=== PATIENT | female | born 1940 | race Caucasian/White ===

== ENCOUNTER → 2017-12-23 07:57 | Outpatient (CLI) | payer MEDICARE, OTHER, SELFPAY ==
[2017-12-23 09:14] LABS: Alanine Aminotransferase 25 IU/L (9-52); Albumin 4.1 g/dL (3.5-5.0); Albumin Globulin Ratio 1.5 (1.0-2.8); Alkaline Phosphatase 118 U/L (38-126); Aspartate Aminotransferase 21 IU/L (14-36); BUN Creatinine Ratio 18.9 (6-22); Blood Urea Nitrogen 17 mg/dL (7-17); Carbon Dioxide 28 mmol/L (22-32); Chloride 102 mmol/L (98-107); Cholesterol 163 mg/dL (140-199); Estimated Glomerular Filt Rate > 60.0 mL/min (>60); Globulin 2.8 g/dL (1.7-4.1); Glucose 101 mg/dL (80-110); HDL Cholesterol 49 mg/dL (40-60); HEMOLYSIS < 15 (0-50); LDL Cholesterol Calculated 90 mg/dL (<100); Potassium 4.2 mmol/L (3.4-5.1); Sodium 143 mmol/L (137-145); Total Protein 6.9 g/dL (6.3-8.2); Triglycerides 119 mg/dL (35-150)
[2017-12-23 11:51] LABS: Creatinine Urine Random 141.7 mg/dL
[2017-12-23 11:55] LABS: Microalbumi Creatinin Ratio Ur 7.7 ug/mg CR (<30); Microalbumin Urine Random 1.1 mg/dL (0-1.6)
== END ==
PROVIDERS: PCP Physician Assistant; Visit Provider Physician Assistant
DX: E78.5 Hyperlipidemia, unspecified (principal); I10 Essential (primary) hypertension
CPT/HCPCS: 36415; 80053; 80061; 82043; 82570

== ENCOUNTER → 2018-07-16 08:13 | Outpatient (CLI) | payer MEDICARE, SELFPAY ==
[2018-07-16 09:20] LABS: Blood Urea Nitrogen 17 mg/dL (7-17); Calcium 9.2 mg/dL (8.4-10.2); Carbon Dioxide 28 mmol/L (22-32); Chloride 102 mmol/L (98-107); Estimated Glomerular Filt Rate 53.3 mL/min (>60); Glucose 94 mg/dL (80-110); HEMOLYSIS < 15 (0-50); Potassium 4.3 mmol/L (3.4-5.1); Sodium 143 mmol/L (137-145)
== END ==
PROVIDERS: Family Provider Physician Assistant; PCP Physician Assistant; Visit Provider Physician Assistant
DX: I10 Essential (primary) hypertension (principal); Z51.81 Encounter for therapeutic drug level monitoring
CPT/HCPCS: 36415; 80048

== ENCOUNTER → 2019-02-09 07:29 | Outpatient (CLI) | payer MEDICARE, SELFPAY ==
[2019-02-09 08:58] LABS: Alanine Aminotransferase 23 IU/L (9-52); Albumin 4.1 g/dL (3.5-5.0); Albumin Globulin Ratio 1.5 (1.0-2.8); Alkaline Phosphatase 109 U/L (38-126); Aspartate Aminotransferase 25 IU/L (14-36); BUN Creatinine Ratio 18.9 (6-22); Bilirubin Total 0.9 mg/dL (0.2-1.3); Blood Urea Nitrogen 17 mg/dL (7-17); Calcium 9.3 mg/dL (8.4-10.2); Carbon Dioxide 30 mmol/L (22-32); Chloride 102 mmol/L (98-107); Cholesterol 180 mg/dL (140-199); Estimated Glomerular Filt Rate > 60.0 mL/min (>60); Globulin 2.8 g/dL (1.7-4.1); Glucose 102 mg/dL (80-110); HDL Cholesterol 42 mg/dL (40-60); HEMOLYSIS < 15 (0-50); LDL Cholesterol Calculated 106 mg/dL (<100); Potassium 4.5 mmol/L (3.4-5.1); Sodium 140 mmol/L (137-145); Total Protein 6.9 g/dL (6.3-8.2); Triglycerides 160 mg/dL (35-150)
== END ==
PROVIDERS: PCP Physician Assistant; Visit Provider Physician Assistant
DX: E78.5 Hyperlipidemia, unspecified (principal); I10 Essential (primary) hypertension
CPT/HCPCS: 36415; 80053; 80061

== ENCOUNTER → 2019-12-03 13:48 | Outpatient (CLI) | payer MEDICARE, SELFPAY ==
--- NOTE | 2019-12-03 13:49 | DI.US.S_ITS ---
PROCEDURE: US PELVIC COMPLETE INDICATIONS: QUESTION OF VAGINAL BLEEDING TECHNIQUE: Real-time scanning was performed of the pelvic organs, with image documentation. Additional endovaginal scanning was necessary due to incomplete visualization of the adnexal and endometrial structures by transabdominal scanning. COMPARISON: None. FINDINGS: Transabdominal scanning: Limited scanning through the kidneys shows no hydronephrosis. No pathologic free abdominal or pelvic fluid. Endovaginal scanning: Uterus: Uterus is normal in size at 6.1 x 2.2 x 3.5 cm. The endometrium measures 3-4 mm in combined thickness. Ovaries: Neither of the ovaries are sonographically visualized IMPRESSION: No pathologic endometrial thickening sonographically identified. Dictated by: Glen Alarcon M.D. on 12/03/2019 at 16:01 Approved by: Glen Alarcon M.D. on 12/03/2019 at 16:04
== END ==
PROVIDERS: PCP Physician Assistant; Referring Provider Obstetrics & Gynecology; Visit Provider Obstetrics & Gynecology
DX: Z96.0 Presence of urogenital implants (principal)
CPT/HCPCS: 76830; 76856

== ENCOUNTER → 2019-12-22 07:32 | Outpatient (CLI) | payer MEDICARE, SELFPAY ==
[2019-12-22 08:50] LABS: BUN Creatinine Ratio 21.7 (6-22); Blood Urea Nitrogen 20 mg/dL (7-17); Calcium 9.1 mg/dL (8.4-10.2); Carbon Dioxide 30 mmol/L (22-32); Chloride 102 mmol/L (98-107); Estimated Glomerular Filt Rate 58.6 mL/min (>60); Glucose 103 mg/dL (80-110); HEMOLYSIS < 15 (0-50); Potassium 3.8 mmol/L (3.4-5.1); Sodium 138 mmol/L (137-145)
== END ==
PROVIDERS: Physician Assistant; PCP Nurse Practitioner Family; Referring Provider Nurse Practitioner Family; Visit Provider Nurse Practitioner Family
DX: I10 Essential (primary) hypertension (principal)
CPT/HCPCS: 36415; 80048

== ENCOUNTER → 2020-03-24 07:41 | Outpatient (CLI) | payer MEDICARE, SELFPAY ==
[2020-03-24 08:43] LABS: Alanine Aminotransferase 22 IU/L (<35); Albumin 4.2 g/dL (3.5-5.0); Albumin Globulin Ratio 1.4 (1.0-2.8); Alkaline Phosphatase 113 U/L (38-126); Aspartate Aminotransferase 29 IU/L (14-36); BUN Creatinine Ratio 15.5 (6-22); Bilirubin Total 1.1 mg/dL (0.2-1.3); Blood Urea Nitrogen 16 mg/dL (7-17); Calcium 9.5 mg/dL (8.4-10.2); Carbon Dioxide 32 mmol/L (22-32); Chloride 101 mmol/L (98-107); Cholesterol 168 mg/dL (140-199); Estimated Glomerular Filt Rate 51.4 mL/min (>60); Globulin 3.1 g/dL (1.7-4.1); Glucose 111 mg/dL (80-110); HDL Cholesterol 48 mg/dL (40-60); HEMOLYSIS < 15 (0-50); LDL Cholesterol Calculated 91 mg/dL (<100); Potassium 5.1 mmol/L (3.4-5.1); Sodium 140 mmol/L (137-145); Total Protein 7.3 g/dL (6.3-8.2); Triglycerides 147 mg/dL (35-150)
[2020-03-24 08:56] LABS: Vitamin D 25 Hydroxy (D3) 42.9 ng/mL (30.0-100.0)
== END ==
PROVIDERS: PCP Registered Nurse; Referring Provider Registered Nurse; Visit Provider Registered Nurse
DX: R94.4 Abnormal results of kidney function studies (principal); I10 Essential (primary) hypertension; E78.5 Hyperlipidemia, unspecified; E55.9 Vitamin D deficiency, unspecified
CPT/HCPCS: 36415; 80053; 80061; 82306

== ENCOUNTER 2020-05-26 16:52 | Emergency (ER) | payer MEDICARE, SELFPAY ==
[2020-05-26 16:58] VITALS: BP 213/94; PULSE 101; RESP 15; TEMP 37; O2SAT 96; BMI 37.0
--- NOTE | 2020-05-26 17:10 | DI.RAD.S_ITS ---
PROCEDURE: XR CHEST 1V INDICATIONS: chest pain TECHNIQUE: One view of the chest was acquired. COMPARISON: [facility], , CHEST 2 VIEW, 10/03/2007, 14:19. FINDINGS: Surgical changes and devices: None. Lungs and pleura: Lungs are clear. No pleural effusions or pneumothorax. Mediastinum: Mediastinal contours appear normal. Heart size is normal. Bones and chest wall: No suspicious bony lesions. Overlying soft tissues appear unremarkable. IMPRESSION: No acute cardiopulmonary process demonstrated radiographically. Dictated by: Shawn Woodson M.D. on 05/26/2020 at 18:29 Approved by: Shawn Woodson M.D. on 05/26/2020 at 18:31
[2020-05-26 17:27] LABS: Add Manual Diff / Slide Review NO; Basophils Absolute Auto 100 /uL (0-100); Basophils Percent Auto 0.9 % (0-2); Eosinophils Absolute Auto 200 /uL (0-450); Eosinophils Percent Auto 2.2 % (2-4); Hematocrit 41.6 % (36-46); Lymphocytes Absolute Auto 2300 /uL (1100-4500); Lymphocytes Percent Auto 25.4 % (25-40); Mean Corpuscular HGB Conc 33.6 % (30-36); Mean Corpuscular Hemoglobin 30.2 PG (26-34); Monocytes Absolute Auto 500 /uL (0-900); Monocytes Percent Auto 5.8 % (3-14); Neutrophils Absolute Auto 6000 /uL (1500-7000); Neutrophils Percent Auto 65.7 % (50-75); Platelet Count 270 X10^3/uL (150-400); Red Blood Cell Count 4.62 X10^6/uL (4.0-5.2); Red Cell Distribution Width 14.1 % (11.6-14.8); White Blood Cell Count 9.1 X10^3/uL (4.5-11.0)
[2020-05-26 17:38] LABS: Prothrombin Time 11.4 SECONDS (10.1-12.7)
[2020-05-26 17:40] LABS: PTT Partial Thromboplastin Tim 32 SECONDS (26.4-36.2)
[2020-05-26 17:43] LABS: Alanine Aminotransferase 24 IU/L (<35); Albumin 4.8 g/dL (3.5-5.0); Albumin Globulin Ratio 1.3 (1.0-2.8); Alkaline Phosphatase 124 U/L (38-126); Aspartate Aminotransferase 34 IU/L (14-36); BUN Creatinine Ratio 14.6 (6-22); Bilirubin Total 0.8 mg/dL (0.2-1.3); Blood Urea Nitrogen 14 mg/dL (7-17); Calcium 9.7 mg/dL (8.4-10.2); Carbon Dioxide 27 mmol/L (22-32); Chloride 101 mmol/L (98-107); Creatine Kinase 188 U/L (30-135); Estimated Glomerular Filt Rate 55.6 mL/min (>60); Globulin 3.7 g/dL (1.7-4.1); Glucose 110 mg/dL (80-110); HEMOLYSIS < 15 (0-50); Lipase 39 U/L (23-300); Potassium 3.9 mmol/L (3.4-5.1); Sodium 138 mmol/L (137-145); Total Protein 8.5 g/dL (6.3-8.2)
[2020-05-26 17:54] LABS: Troponin I < 0.012 ng/mL (0.01-0.034)
[2020-05-26 17:58] LABS: CKMB % Relative Index 0.5 % (1.5-5.0); Creatine Kinase MB 0.93 ng/mL (<2.37)
[2020-05-26 18:04] VITALS: BP 183/84; PULSE 89; RESP 14; TEMP 37.4; O2SAT 97
--- NOTE | 2020-05-26 18:10 | ED_ITS ---
HPI - General Adult General Chief complaint: Hypertension Stated complaint: unable to control bladder, BP/HR elevated Time Seen by Provider: 05/26/20 18:08 Source: patient Mode of arrival: Ambulatory Limitations: no limitations History of Present Illness HPI narrative: 80-year-old female nonsmoker with history of hypertension and chronic kidney disease presents with family in the chief complaint of elevated blood pressure over the course of the day in feeling bit foggy with mild headache. She denies any focal neurologic findings such as blurred vision, trouble speech nor numbness, tingling or weakness of extremities. She denies any fever chills. She has had no chest pain, shortness of breath or cough. She denies abdominal pain. She states that she has had trouble with controlling her bladder for many years and states that it has continued to pain but is nothing new. She denies any change in bowel habits or other urinary complaints. She has no back pain or trouble controlling bowel. She denies any change in diet or medications. Onset (ago): hour(s) Location: head Relieving factors: none Exacerbating factors: none Related Data Home Medications Medication Instructions Recorded Confirmed multivitamin [Multiple Vitamins] 1 tab PO QDAY #0 11/24/10 03/21/20 aspirin 81 mg tablet,delayed 81 mg PO DAILY 07/17/18 03/21/20 release carboxymethylcellulose sodium 0.25 2 drop EYE-BOTH 2XW PRN ml 07/17/18 03/21/20 % eye drops Life Protect Device #1 ea 03/17/19 03/21/20 coenzyme Q10 100 mg capsule 100 mg PO .ONCE A WEEK cap 03/17/19 03/21/20 oxyquinoline-boric acid 0.025 % See Rx Instructions VAG .COMPLEX 03/17/19 03/21/20 vaginal gel Previous Rx's Medication Instructions Recorded Disabled Parking Permit ea #1 10/22/16 oxyquinoline 0.025 %-sodium lauryl 1 each VAG .3 times weekly #113.4 06/29/19 sulfate 0.01 % vaginal gel gram conjugated estrogens 0.625 mg/gram 0.625 mg VAG .COMPLEX #30 gram 12/11/19 vaginal cream verapamil 120 mg tablet,extended 120 mg PO TID #270 tab 03/16/20 release perindopril erbumine 8 mg tablet 8 mg PO BEDTIME #90 tab 04/11/20 simvastatin 40 mg tablet 40 mg PO BEDTIME #90 tab 04/11/20 doxepin 75 mg capsule 75 mg PO HS #90 cap 04/15/20 nitrofurantoin macrocrystal 50 mg See Rx Instructions .ROUTE 05/04/20 capsule .COMPLEX #30 cap hydrochlorothiazide 25 mg tablet 25 mg PO QDAY #90 tab 05/26/20 ketoconazole 2 % topical cream 1 applic TOP DAILY PRN #60 gram 05/26/20 Allergies Allergy/AdvReac Type Severity Reaction Status Date / Time tetracycline Allergy Mild RASH Verified 05/26/20 17:00 menthol [MENTHOL] AdvReac Severe NAUSEA Verified 05/26/20 17:00 peppermint [PEPPERMINT] AdvReac Severe NAUSEA Verified 05/26/20 17:00 phenazopyridine AdvReac Severe VOMITING Verified 05/26/20 17:00 [From PYRIDIUM] Review of Systems Constitutional Constitutional: Denies chills, Denies fatigue, Denies fever(s), Denies frequent falls, Reports headache(s), Denies lethargy and Denies weakness Eyes Eyes: Denies change in vision, Denies eye discharge, Denies irritation and Denies loss of vision ENT Ears, Nose, Mouth, and Throat: Denies change in voice, Denies dizziness, Reports headache(s), Denies neck pain, Denies sore throat and Denies throat swelling Cardiovascular Cardiovascular: Denies chest pain, Denies irregular heart rhythm, Denies lightheadedness, Denies palpitations, Denies dyspnea, Denies dyspnea on exertion and Denies orthopnea Respiratory Respiratory: Denies cough, Denies dyspnea, Denies dyspnea on exertion and Denies wheezing Gastrointestinal Gastrointestinal: Denies abdominal pain, Denies change in bowel habits, Denies diarrhea, Denies nausea and Denies vomiting Musculoskeletal Musculoskeletal: Denies neck pain and Denies numbness Integumentary/Breasts Skin/Breast: Denies pruritus, Denies erythema, Denies rash and Denies wounds Neurologic Neurologic: Denies behavioral changes, Denies confusion, Denies dizziness, Denies frequent falls, Reports headache(s), Denies loss of vision, Denies numbness and Denies weakness Psychiatric Psychiatric: Denies anxiety, Denies behavioral changes, Denies confusion, Denies depression, Denies homicidal ideation and Denies suicidal ideation Endocrine Endocrine: Denies fatigue, Denies flushing and Denies palpitations Hematologic/Lymphatic Hematologic/Lymphatic: Denies easy bruising Allergic/Immunologic Allergic/Immunologic: Denies urticaria, Denies throat swelling and Denies wheezing Patient History Medical History Allergy (Unknown) Basal cell carcinoma (~02/2013) Chronic venous insufficiency (01/20/02) Decreased GFR Depression (Unknown) Distal radius fracture, left Diverticulosis of large intestine with hemorrhage (02/15/16) Essential hypertension (05/04/04) Hiatal hernia (Unknown) Hyperlipidemia (05/04/04) Osteopenia (2005) Osteoporosis (10/25/05) Psoriasis (11/08/10) Vaginal atrophy (05/02/16) Vitamin D deficiency (~2010) Surgical History History of cataract removal with insertion of prosthetic lens (2015) History of third molar tooth extraction S/P surgery on nasal septum Status post delivery (11/19/1968) Status post cholecystectomy Status post hernia repair (2015) Status post total right knee replacement Status post tubal ligation (11/19/1968) Social History Smoking Status: Never smoker second hand exposure: No alcohol intake: never substance use type: does not use Smoking Status: Never smoker alcohol intake frequency: holidays/special occasions only Substance Use Type: does not use Exam Narrative Exam Narrative: GENERAL: [80] year old patient appears stated age. Well- nourished, well-developed patient, in mild distress. HEAD: Atraumatic. Normocephalic. EYES: Pupils equal round and reactive. Extraocular motions intact. No scleral icterus. No injection or drainage. ENT: Nose without bleeding, purulent drainage. Throat without erythema, tonsillar hypertrophy or exudate. Airway patent. NECK: Trachea midline. Non tender CARDIOVASCULAR: Regular rate and rhythm without murmurs, gallops, or rubs. RESPIRATORY: Clear to auscultation. Breath sounds equal bilaterally. No wheezes, rales, or rhonchi. GASTROINTESTINAL: Abdomen soft, non-tender, nondistended. EXTREMITIES: No edema or joint tenderness. BACK: Nontender without deformity or crepitance. No flank tenderness. No saddle anesthesia, no numbness or tingling of lower extremities. NEURO: AOx3. SKIN: No rash or erythema of visible areas Initial Vital Signs Initial Vital Signs: Vital Signs Temperature 98.6 F 05/26/20 16:58 Pulse Rate 101 H 05/26/20 16:58 Respiratory Rate 15 05/26/20 16:58 Blood Pressure 213/94 H 05/26/20 16:58 Pulse Oximetry 96 05/26/20 16:58 Course Orders Ordered: ED Orders 05/26/20 17:10 XR chest 1V Stat EKG-12 Lead Stat 05/26/20 17:17 Complete Blood Count AUTO DIFF Stat Comprehensive Metabolic Panel Stat Lipase Stat Partial Thromboplastin Time Stat Prothrombin Time INR Stat Troponin & CK Cardiac Panel Stat 05/26/20 18:04 Urine Culture Stat Urine Microscopic Stat 05/26/20 18:40 CT head/brain wo con Stat Vital Signs Vital signs: Vital Signs - 8 hr 05/26/20 16:58 05/26/20 18:04 05/26/20 18:24 Temperature 98.6 F 99.4 F Pulse Rate 101 H 89 80 Respiratory Rate 15 14 16 Blood Pressure 213/94 H 183/84 H 201/91 H Pulse Oximetry 96 97 97 05/26/20 20:58 Temperature 98.3 F Pulse Rate 78 Respiratory Rate 20 Blood Pressure 168/73 H Pulse Oximetry 97 Medical Decision Making Lab Data Result diagrams: 05/26/20 17:17 05/26/20 17:17 Labs: Lab Results 05/26/20 05/26/20 05/26/20 Range/Units 17:17 17:17 17:17 WBC 9.1 (4.5-11.0) X10^3/uL RBC 4.62 (4.0-5.2) X10^6/uL Hgb 14.0 (12.0-16.0) g/dL Hct 41.6 (36-46) % MCV 90.0 (80-100) fL MCH 30.2 (26-34) PG MCHC 33.6 (30-36) % RDW 14.1 (11.6-14.8) % Plt Count 270 (150-400) X10^3/uL Neut % (Auto) 65.7 (50-75) % Lymph % (Auto) 25.4 (25-40) % [place] % (Auto) 5.8 (3-14) % Eos % (Auto) 2.2 (2-4) % Baso % (Auto) 0.9 (0-2) % Neut # (Auto) 6000 (5743-1580) /uL Lymph # (Auto) 2300 (7621-5693) /uL [place] # (Auto) 500 (0-900) /uL Eos # (Auto) 200 (0-450) /uL Baso # (Auto) 100 (0-100) /uL PT 11.4 (10.1-12.7) SECONDS INR 1.0 (0.9-1.3) APTT 32 (26.4-36.2) SECONDS Sodium 138 (137-145) mmol/L Potassium 3.9 (3.4-5.1) mmol/L Chloride 101 (98-107) mmol/L Carbon Dioxide 27 (22-32) mmol/L BUN 14 (7-17) mg/dL Creatinine 0.96 (0.52-1.04) mg/dL Estimated GFR 55.6 L (>60) mL/min BUN/Creatinine Ratio 14.6 (6-22) Glucose 110 (80-110) mg/dL Calcium 9.7 (8.4-10.2) mg/dL Total Bilirubin 0.8 (0.2-1.3) mg/dL AST 34 (14-36) IU/L ALT 24 (<35) IU/L Alkaline Phosphatase 124 (38-126) U/L Total Creatine Kinase 188 H (30-135) U/L CK-MB (CK-2) 0.93 (<2.37) ng/mL CK-MB (CK-2) Rel Index 0.5 L (1.5-5.0) % Troponin I < 0.012 (0.01-0.034) ng/mL Total Protein 8.5 H (6.3-8.2) g/dL Albumin 4.8 (3.5-5.0) g/dL Globulin 3.7 (1.7-4.1) g/dL Albumin/Globulin Ratio 1.3 (1.0-2.8) Lipase 39 (23-300) U/L Urine RBC (0-5/HPF) Urine WBC (0-5/HPF) Ur Squamous Epith Cells (0-5/HPF) Urine Bacteria (None) Ur Culture Indicated? 05/26/20 Range/Units 18:04 WBC (4.5-11.0) X10^3/uL RBC (4.0-5.2) X10^6/uL Hgb (12.0-16.0) g/dL Hct (36-46) % MCV (80-100) fL MCH (26-34) PG MCHC (30-36) % RDW (11.6-14.8) % Plt Count (150-400) X10^3/uL Neut % (Auto) (50-75) % Lymph % (Auto) (25-40) % [place] % (Auto) (3-14) % Eos % (Auto) (2-4) % Baso % (Auto) (0-2) % Neut # (Auto) (9340-3584) /uL Lymph # (Auto) (0237-1466) /uL [place] # (Auto) (0-900) /uL Eos # (Auto) (0-450) /uL Baso # (Auto) (0-100) /uL PT (10.1-12.7) SECONDS INR (0.9-1.3) APTT (26.4-36.2) SECONDS Sodium (137-145) mmol/L Potassium (3.4-5.1) mmol/L Chloride (98-107) mmol/L Carbon Dioxide (22-32) mmol/L BUN (7-17) mg/dL Creatinine (0.52-1.04) mg/dL Estimated GFR (>60) mL/min BUN/Creatinine Ratio (6-22) Glucose (80-110) mg/dL Calcium (8.4-10.2) mg/dL Total Bilirubin (0.2-1.3) mg/dL AST (14-36) IU/L ALT (<35) IU/L Alkaline Phosphatase (38-126) U/L Total Creatine Kinase (30-135) U/L CK-MB (CK-2) (<2.37) ng/mL CK-MB (CK-2) Rel Index (1.5-5.0) % Troponin I (0.01-0.034) ng/mL Total Protein (6.3-8.2) g/dL Albumin (3.5-5.0) g/dL Globulin (1.7-4.1) g/dL Albumin/Globulin Ratio (1.0-2.8) Lipase (23-300) U/L Urine RBC None seen (0-5/HPF) Urine WBC 5-10/hpf H (0-5/HPF) Ur Squamous Epith Cells 0-1 /hpf (0-5/HPF) Urine Bacteria None seen (None) Ur Culture Indicated? Specimen cultured Urine Dip Bedside Urine Glucose Negative Bedside Urine Bilirubin - Negative Bedside Urine Ketone - Negative Urine Specific Lester 1.015 Bedside Urine Occult Blood - Negative Bedside Urine pH 6.0 Bedside Urine Protein - Negative Bedside Urine Nitrite - Negative Bedside Urine Leukocytes + 70 Esterase Point of care testing: Urine Dip Bedside Urine Glucose Negative Bedside Urine Bilirubin - Negative Bedside Urine Ketone - Negative Urine Specific [place] 1.015 Bedside Urine Occult Blood - Negative Bedside Urine pH 6.0 Bedside Urine Protein - Negative Bedside Urine Nitrite - Negative Bedside Urine Leukocytes + [address] scan - head: Radiologist's Impression: [address] [id number] Scan ReportSigned Patient: Niru Gamble AMR#: [id number]: 8Acct:[id number]/Sex: 80 / FDate of Service: 05/26/20Loc: EDAccession Number: [id number] Procedure: CT head/brain wo con Ordering Provider: Henri Hawkins D.O. PROCEDURE: CT HEAD/BRAIN WO CON INDICATIONS: HTN emergency TECHNIQUE: Noncontrast 4.5 mm thick angled axial sections acquired from the foramen magnum to the vertex, with coronal and sagittal reformats. For radiation dose reduction, the following was used: automated exposure control, adjustment of mA and/or kV according to patient size. COMPARISON: None. FINDINGS: Image quality: Excellent. CSF spaces: Basal cisterns are patent. No extra-axial fluid collections. Ventricles are normal in size and shape. Brain: No midline shift. No intracranial masses or hemorrhage. Tovar-white matter interface is normal. Skull and face: Calvarium and visualized facial bones are intact, without suspicious lesions. Sinuses: Visualized sinuses and mastoids are clear. IMPRESSION: No acute intracranial finding. Dictated by: Shawn Woodson M.D. on 05/26/2020 at 19:08 Approved by: Shawn Woodson M.D. on 05/26/2020 at 19:08 Chest x-ray: Radiologist's Impression: Age/Sex: 80 / FDate of Service: 05/26/20Loc: EDAccession Number: [id number] Procedure: XR chest 1V Ordering Provider: Wilma Kolb D.O. PROCEDURE: XR CHEST 1V INDICATIONS: chest pain TECHNIQUE: One view of the chest was acquired. COMPARISON: [facility], CHEST 2 VIEW, 10/03/2007, 14:19. FINDINGS: Surgical changes and devices: None. Lungs and pleura: Lungs are clear. No pleural effusions or pneumothorax. Mediastinum: Mediastinal contours appear normal. Heart size is normal. Bones and chest wall: No suspicious bony lesions. Overlying soft tissues appear unremarkable. IMPRESSION: No acute cardiopulmonary process demonstrated radiographically. Dictated by: Shawn Woodson M.D. on 05/26/2020 at 18:29 Approved by: Shawn Woodson M.D. on 05/26/2020 at 18:31 MDM Narrative Medical decision making narrative: Patient initial blood pressure over 200 and was complaining of a bit of a headache and feeling foggy, as stated. Over the duration of the visit, and with reassurance her symptoms improved as her blood pressure improved and by the time she was in the 160s and 70 she was completely asymptomatic. The remainder of her evaluation is very reassuring. We discussed at length that her blood pressure is elevated but it is not appropriate to alter any medications at this point in time and then close follow-up with their PCP is most appropriate step. She has been given extensive return precautions and has had questions answered to her apparent satisfaction. Discharge Plan Departure Patient Disposition: Home Clinical Impression: Urinary urgency HTN (hypertension) Qualifiers: Hypertension type: essential hypertension Qualified Code(s): I10 - Essential (primary) hypertension Activity Restrictions/Additional Instructions: *You have been diagnosed with [elevated blood pressure, chronic kidney disease stage 3] *What to do: * continue to take medications as directed *Follow up with your primary care provider in 2-3 days, call for an appointment. Let them know you were seen in the Emergency Department and that we ask that you be seen in follow up *Return to ER if you should have any new, worsening or concerning symptoms Prescriptions: No Action aspirin [Adult Low Dose Aspirin] 81 mg tablet,delayed release (DR/EC) 81 mg PO DAILY RF: 0 carboxymethylcellulose sodium [TheraTears] 0.25 % drops 2 drop EYE-BOTH 2XW PRNRF: 0 multivitamin [Multiple Vitamins] 1 EACH tablet 1 tab PO QDAY Qty: 0 RF: 0 Disabled Parking Permit Qty: 1 RF: 0 Premarin 0.625 mg/gram cream 0.625 mg VAG .COMPLEX Qty: 30 RF: 2 verapamil 120 mg tablet extended release 120 mg PO TID Qty: 270 RF: 0 perindopril erbumine 8 mg tablet 8 mg PO BEDTIME Qty: 90 RF: 0 simvastatin 40 mg tablet 40 mg PO BEDTIME Qty: 90 RF: 0 doxepin 75 mg capsule 75 mg PO HS Qty: 90 RF: 0 nitrofurantoin macrocrystal 50 mg capsule See Rx Instructions .ROUTE .COMPLEX Qty: 30 RF: 0 ketoconazole 2 % cream 1 applic TOP DAILY PRN (Reason: herber dermatitis) Qty: 60 RF: 3 hydrochlorothiazide 25 mg tablet 25 mg PO QDAY Qty: 90 RF: 3 coenzyme Q10 [Co Q-10] 100 mg capsule 100 mg PO .ONCE A WEEK RF: 0 oxyquinoline-boric acid 0.025 % gel See Rx Instructions VAG .COMPLEX RF: 0 (DME) Life Protect Device Qty: 1 RF: 0 Trimo-Barrett Jelly 0.025-0.01 % gel 1 each VAG .3 times weekly Qty: 113.4 RF: 12 Referrals: Raquel Stern MD [Physician] - Duke Escobedo ARNP [Primary Care Provider] -
[2020-05-26 18:22] LABS: Bacteria Urine None Seen; RBC Urine None Seen (0-5/HPF)
[2020-05-26 18:24] VITALS: BP 201/91; PULSE 80; RESP 16; O2SAT 97
[2020-05-26 18:30] LABS: Culture Indicated Urine Specimen Cultured; Squamous Epithelial Cell Urine 0-1 /HPF (0-5/HPF); WBC Urine 5-10/HPF (0-5/HPF)
--- NOTE | 2020-05-26 18:40 | DI.CT.S_ITS ---
PROCEDURE: CT HEAD/BRAIN WO CON INDICATIONS: HTN emergency TECHNIQUE: Noncontrast 4.5 mm thick angled axial sections acquired from the foramen magnum to the vertex, with coronal and sagittal reformats. For radiation dose reduction, the following was used: automated exposure control, adjustment of mA and/or kV according to patient size. COMPARISON: None. FINDINGS: Image quality: Excellent. CSF spaces: Basal cisterns are patent. No extra-axial fluid collections. Ventricles are normal in size and shape. Brain: No midline shift. No intracranial masses or hemorrhage. Tovar-white matter interface is normal. Skull and face: Calvarium and visualized facial bones are intact, without suspicious lesions. Sinuses: Visualized sinuses and mastoids are clear. IMPRESSION: No acute intracranial finding. Dictated by: Shawn Woodson M.D. on 05/26/2020 at 19:08 Approved by: Shawn Woodson M.D. on 05/26/2020 at 19:08
[2020-05-26 20:58] VITALS: BP 168/73; PULSE 78; RESP 20; TEMP 36.8; O2SAT 97
[2020-05-26 23:43] VITALS: BP 189/80; PULSE 75; RESP 12; O2SAT 94
== END 2020-05-26 23:44 | disposition home or self-care (01) ==
PROVIDERS: Emergency Medicine; Emergency Provider Emergency Medicine; PCP Registered Nurse
DX: R39.15 Urgency of urination (principal); I12.9 Hypertensive chronic kidney disease with stage 1 through stage 4 chronic kidney disease, or unspecified chronic kidney disease; N18.9 Chronic kidney disease, unspecified; R51.9 Headache, unspecified; R07.9 Chest pain, unspecified; Z79.82 Long term (current) use of aspirin
CPT/HCPCS: 36415; 70450; 71045; 80053; 81003; 81015; 82550; 82553; 83690; 84484; 85025; 85610; 85730; 87086; 93005; 99283; 99284

== ENCOUNTER → 2020-06-08 11:21 | Outpatient (CLI) | payer MEDICARE, SELFPAY | PROVIDERS: PCP Registered Nurse; Visit Provider Obstetrics & Gynecology | DX: R39.15 Urgency of urination (principal) | CPT/HCPCS: 87086 ==

== ENCOUNTER → 2020-07-06 11:58 | Outpatient (CLI) | payer MEDICARE, SELFPAY ==
[2020-07-06 13:36] LABS: Hematocrit 40.3 % (36-46); Hemoglobin 13.6 g/dL (12.0-16.0); Mean Corpuscular HGB Conc 33.7 % (30-36); Mean Corpuscular Hemoglobin 30.5 PG (26-34); Mean Corpuscular Volume 90.5 fL (80-100); Platelet Count 245 X10^3/uL (150-400); Red Blood Cell Count 4.45 X10^6/uL (4.0-5.2); Red Cell Distribution Width 13.9 % (11.6-14.8); White Blood Cell Count 6.7 X10^3/uL (4.5-11.0)
[2020-07-06 14:18] LABS: BUN Creatinine Ratio 18.8 (6-22); Blood Urea Nitrogen 18 mg/dL (7-17); Calcium 9.5 mg/dL (8.4-10.2); Carbon Dioxide 34 mmol/L (22-32); Chloride 100 mmol/L (98-107); Estimated Glomerular Filt Rate 55.6 mL/min (>60); Glucose 101 mg/dL (80-110); HEMOLYSIS < 15 (0-50); Potassium 4.9 mmol/L (3.4-5.1); Sodium 138 mmol/L (137-145)
[2020-07-06 15:40] LABS: Creatinine Urine Random 51.7 mg/dL; Protein (Total) Urine Random 16 mg/dL (0-12)
== END ==
PROVIDERS: PCP Registered Nurse; Referring Provider Student in an Organized Health Care Education/Training Program; Visit Provider Student in an Organized Health Care Education/Training Program
DX: N05.9 Unspecified nephritic syndrome with unspecified morphologic changes (principal); D63.1 Anemia in chronic kidney disease; D70.9 Neutropenia, unspecified; R80.9 Proteinuria, unspecified
CPT/HCPCS: 36415; 80048; 82570; 84156; 85027

== ENCOUNTER → 2020-07-21 12:37 | Outpatient (CLI) | payer MEDICARE, SELFPAY ==
--- NOTE | 2020-07-21 12:39 | DI.US.S_ITS ---
PROCEDURE: US RENAL COMPLETE INDICATIONS: CHRONIC KIDNEY DISEASE STAGE 3A TECHNIQUE: Real-time scanning was performed of the kidneys and bladder, with image documentation. COMPARISON: None. FINDINGS: Kidneys: Kidneys are normal in size. Right kidney measures 9.0 cm long; left kidney measures 10.3 cm long. Right renal cortical thickness is 1.4 cm; left renal cortical thickness is 1.2 cm. Renal cortical echotexture is normal. No hydronephrosis or nephrolithiasis. No suspicious solid mass lesions. 0.7 x 0.6 x 0.6 centimeter simple cyst noted in the superior pole of the right kidney. Bladder: Pre-void bladder volume is 252 mL. Post-void residual is 218 mL. Pre-void images demonstrate no intraluminal masses or stones. On pre-void images, both the right and left ureteral jets are noted with color Doppler interrogation. (Of note, ureteral jets may not be detectable in up to 25% of cases due to insufficient differences in specific gravity between ureteral and bladder urine). Miscellaneous: No free pelvic fluid. IMPRESSION: 1. No hydronephrosis or nephrolithiasis. 2. Large postvoid urinary bladder residual volume. Dictated by: Gayle Enamorado MD, PhD on 07/21/2020 at 16:15 Approved by: Gayle Enamorado MD, PhD on 07/21/2020 at 16:17
== END ==
PROVIDERS: PCP Registered Nurse; Referring Provider Student in an Organized Health Care Education/Training Program; Visit Provider Student in an Organized Health Care Education/Training Program
DX: N18.31 Chronic kidney disease, stage 3a (principal)
CPT/HCPCS: 76770

== ENCOUNTER → 2020-10-13 11:41 | Outpatient (CLI) | payer MEDICARE, SELFPAY ==
[2020-10-13 12:09] LABS: Hematocrit 38.6 % (36-46)
[2020-10-13 12:33] LABS: BUN Creatinine Ratio 17.9 (6-22); Blood Urea Nitrogen 17 mg/dL (7-17); Calcium 9.5 mg/dL (8.4-10.2); Carbon Dioxide 28 mmol/L (22-32); Chloride 101 mmol/L (98-107); Estimated Glomerular Filt Rate 56.3 mL/min (>60); Glucose 97 mg/dL (80-110); HEMOLYSIS < 15 (0-50); Potassium 4.4 mmol/L (3.4-5.1); Sodium 138 mmol/L (137-145)
[2020-10-13 14:29] LABS: Appearance Urine UA CLEAR; Bilirubin Urine UA NEGATIVE (NEGATIVE); Color Urine UA YELLOW; Glucose Urine UA TRACE g/dL (Negative); Ketones Urine UA NEGATIVE (NEGATIVE); Leukocyte Esterase Urine UA 1+ (NEGATIVE); Nitrite Urine UA NEGATIVE (Negative); Occult Blood Urine UA 2+ (Negative); Protein Urine UA NEGATIVE (Negative); Urobilinogen Urine UA 0.2 E.U./dL (0.2)
[2020-10-13 14:42] LABS: RBC Urine 1-5/HPF (0-5/HPF); WBC Urine 10-30/HPF (0-5/HPF)
[2020-10-13 14:43] LABS: Bacteria Urine Few (2-10); Culture Indicated Urine Specimen Cultured
[2020-10-13 16:07] LABS: Creatinine Urine Random 64.4 mg/dL; Protein (Total) Urine Random 10 mg/dL (0-12); Protein Creatinine Ratio Urine 0.15 GRAM/24H
[2020-10-14 06:41] LABS: Parathyroid Hormone Int 42 pg/mL (15-65)
== END ==
PROVIDERS: PCP Registered Nurse; Referring Provider Student in an Organized Health Care Education/Training Program; Visit Provider Student in an Organized Health Care Education/Training Program
DX: N05.9 Unspecified nephritic syndrome with unspecified morphologic changes (principal); D64.9 Anemia, unspecified; N25.81 Secondary hyperparathyroidism of renal origin; R80.9 Proteinuria, unspecified; N30.00 Acute cystitis without hematuria
CPT/HCPCS: 36415; 80048; 81001; 82570; 83970; 84156; 85014; 85018; 87086

== ENCOUNTER → 2021-06-12 08:56 | Outpatient (CLI) | payer MEDICARE, SELFPAY ==
[2021-06-12 11:04] LABS: Alanine Aminotransferase 21 IU/L (<35); Albumin Globulin Ratio 1.5 (1.0-2.8); Alkaline Phosphatase 85 U/L (38-126); Aspartate Aminotransferase 28 IU/L (14-36); BUN Creatinine Ratio 18.5 (6-22); Bilirubin Total 1.1 mg/dL (0.2-1.3); Blood Urea Nitrogen 20 mg/dL (7-17); Calcium 9.4 mg/dL (8.4-10.2); Carbon Dioxide 34 mmol/L (22-32); Chloride 100 mmol/L (98-107); Cholesterol 169 mg/dL (140-199); Estimated Glomerular Filt Rate 48.5 mL/min (>60); Globulin 2.7 g/dL (1.7-4.1); Glucose 106 mg/dL (80-110); HDL Cholesterol 40 mg/dL (40-60); HEMOLYSIS < 15 (0-50); LDL Cholesterol Calculated 99 mg/dL (<100); Potassium 4.5 mmol/L (3.4-5.1); Sodium 139 mmol/L (137-145); Total Protein 6.7 g/dL (6.3-8.2); Triglycerides 149 mg/dL (35-150)
== END ==
PROVIDERS: PCP Registered Nurse; Referring Provider Registered Nurse; Visit Provider Registered Nurse
DX: E78.5 Hyperlipidemia, unspecified (principal); I10 Essential (primary) hypertension; N18.31 Chronic kidney disease, stage 3a
CPT/HCPCS: 36415; 80053; 80061

== ENCOUNTER → 2021-06-22 12:19 | Outpatient (CLI) | payer MEDICARE, SELFPAY ==
[2021-06-22 13:29] LABS: Hematocrit 40.3 % (36-46); Hemoglobin 13.9 g/dL (12.0-16.0)
[2021-06-22 13:56] LABS: BUN Creatinine Ratio 17.4 (6-22); Blood Urea Nitrogen 21 mg/dL (7-17); Carbon Dioxide 28 mmol/L (22-32); Chloride 103 mmol/L (98-107); Estimated Glomerular Filt Rate 42.5 mL/min (>60); Glucose 111 mg/dL (80-110); HEMOLYSIS < 15 (0-50); Potassium 5.1 mmol/L (3.4-5.1); Sodium 141 mmol/L (137-145)
[2021-06-22 13:57] LABS: Creatinine Urine Random 93.9 mg/dL; Protein (Total) Urine Random 5 mg/dL (0-12); Protein Creatinine Ratio Urine 0.05 GRAM/24H
[2021-06-23 07:36] LABS: Parathyroid Hormone Int 33 pg/mL (15-65)
== END ==
PROVIDERS: PCP Registered Nurse; Referring Provider Student in an Organized Health Care Education/Training Program; Visit Provider Student in an Organized Health Care Education/Training Program
DX: N05.9 Unspecified nephritic syndrome with unspecified morphologic changes (principal); R80.9 Proteinuria, unspecified; D64.9 Anemia, unspecified; N25.81 Secondary hyperparathyroidism of renal origin
CPT/HCPCS: 36415; 80048; 82570; 83970; 84156; 85014; 85018

== ENCOUNTER → 2021-08-04 11:10 | Outpatient (CLI) | payer MEDICARE, SELFPAY ==
[2021-08-04 12:43] LABS: Creatinine Urine Random 150.1 mg/dL; Protein (Total) Urine Random 22 mg/dL (0-12); Protein Creatinine Ratio Urine 0.14 GRAM/24H
[2021-08-04 12:48] LABS: BUN Creatinine Ratio 17.7 (6-22); Blood Urea Nitrogen 17 mg/dL (7-17); Calcium 9.4 mg/dL (8.4-10.2); Carbon Dioxide 32 mmol/L (22-32); Chloride 101 mmol/L (98-107); Estimated Glomerular Filt Rate 55.5 mL/min (>60); Glucose 103 mg/dL (80-110); HEMOLYSIS < 15 (0-50); Potassium 3.9 mmol/L (3.4-5.1); Sodium 138 mmol/L (137-145)
== END ==
PROVIDERS: PCP Registered Nurse; Referring Provider Student in an Organized Health Care Education/Training Program; Visit Provider Student in an Organized Health Care Education/Training Program
DX: N05.9 Unspecified nephritic syndrome with unspecified morphologic changes (principal); R80.9 Proteinuria, unspecified
CPT/HCPCS: 36415; 80048; 82570; 84156

== ENCOUNTER → 2022-02-06 11:37 | Outpatient (CLI) | payer MEDICARE, SELFPAY ==
[2022-02-06 12:50] LABS: Hematocrit 39.1 % (36-46); Hemoglobin 13.1 g/dL (12.0-16.0)
[2022-02-06 15:30] LABS: BUN Creatinine Ratio 18.7 (6-22); Blood Urea Nitrogen 20 mg/dL (7-17); Calcium 8.9 mg/dL (8.4-10.2); Carbon Dioxide 28 mmol/L (22-32); Chloride 102 mmol/L (98-107); Estimated Glomerular Filt Rate 52 mL/min (>60); Glucose 109 mg/dL (80-110); HEMOLYSIS < 15 (0-50); Potassium 4.7 mmol/L (3.4-5.1); Sodium 140 mmol/L (137-145)
[2022-02-06 16:07] LABS: Creatinine Urine Random 73.9 mg/dL; Protein (Total) Urine Random 11 mg/dL (0-12); Protein Creatinine Ratio Urine 0.14 GRAM/24H
[2022-02-08 05:20] LABS: Parathyroid Hormone Int 47 pg/mL (15-65)
== END ==
PROVIDERS: PCP Family Medicine; Referring Provider Student in an Organized Health Care Education/Training Program; Visit Provider Student in an Organized Health Care Education/Training Program
DX: N05.9 Unspecified nephritic syndrome with unspecified morphologic changes (principal); D64.9 Anemia, unspecified; N25.81 Secondary hyperparathyroidism of renal origin; R80.9 Proteinuria, unspecified
CPT/HCPCS: 36415; 80048; 82570; 83970; 84156; 85014; 85018

== ENCOUNTER 2022-04-04 09:33 | Emergency (ER) | payer MEDICARE, SELFPAY ==
[2022-04-04] VITALS (19 sets, daily range): BP systolic 115–173; BP diastolic 65–77; PULSE 71–113; RESP 12–24; TEMP 36.6; O2SAT 91–99; BMI 35.9
--- NOTE | 2022-04-04 09:52 | DI.RAD.S_ITS ---
PROCEDURE: XR CHEST 1V INDICATIONS: chest pain TECHNIQUE: One view of the chest was acquired. COMPARISON: [facility], CR, XR CHEST 1V, 05/26/2020, 18:10. FINDINGS: Surgical changes and devices: None. Lungs and pleura: Lungs are clear. No pleural effusions or pneumothorax. Mediastinum: Mediastinal contours appear normal. Heart size is normal. Bones and chest wall: No suspicious bony lesions. Overlying soft tissues appear unremarkable. IMPRESSION: No acute cardiopulmonary pathology. Dictated by: Joel Martino M.D. on 04/04/2022 at 10:23 Approved by: Joel Martino M.D. on 04/04/2022 at 10:23
[2022-04-04 10:03] LABS: Add Manual Diff / Slide Review NO; Basophils Absolute Auto 100 /uL (0-100); Eosinophils Absolute Auto 300 /uL (0-450); Hematocrit 39.1 % (36-46); Hemoglobin 13.5 g/dL (12.0-16.0); Lymphocytes Absolute Auto 2300 /uL (1100-4500); Mean Corpuscular HGB Conc 34.4 % (30-36); Mean Corpuscular Hemoglobin 30.6 PG (26-34); Monocytes Absolute Auto 400 /uL (0-900); Monocytes Percent Auto 6.5 % (3-14); Neutrophils Absolute Auto 3400 /uL (1500-7000); Neutrophils Percent Auto 52.5 % (50-75); Platelet Count 230 X10^3/uL (150-400); Red Blood Cell Count 4.39 X10^6/uL (4.0-5.2); Red Cell Distribution Width 13.8 % (11.6-14.8); White Blood Cell Count 6.4 X10^3/uL (4.5-11.0)
[2022-04-04 10:06] LABS: Alanine Aminotransferase 22 IU/L (<35); Albumin 4.5 g/dL (3.5-5.0); Albumin Globulin Ratio 1.3 (1.0-2.8); Alkaline Phosphatase 101 U/L (38-126); Aspartate Aminotransferase 29 IU/L (14-36); BUN Creatinine Ratio 20.9 (6-22); Bilirubin Total 1.1 mg/dL (0.2-1.3); Blood Urea Nitrogen 19 mg/dL (7-17); Carbon Dioxide 21 mmol/L (22-32); Chloride 102 mmol/L (98-107); Creatine Kinase 121 U/L (30-135); Estimated Glomerular Filt Rate > 60 mL/min (>60); Globulin 3.4 g/dL (1.7-4.1); Glucose 134 mg/dL (80-110); HEMOLYSIS < 15 (0-50); Lipase 48 U/L (23-300); Potassium 3.2 mmol/L (3.4-5.1); Sodium 141 mmol/L (137-145); Total Protein 7.9 g/dL (6.3-8.2)
[2022-04-04 10:17] LABS: Troponin I < 0.012 ng/mL (0.01-0.034)
[2022-04-04 10:21] LABS: CKMB % Relative Index 0.8 % (1.5-5.0); Creatine Kinase MB 0.97 ng/mL (<2.37)
--- NOTE | 2022-04-04 12:30 | ED.ARRPALP ---
HPI - Arrhythmia/Palpitations General Chief Complaint: Arrhythmia/Palpitations Stated Complaint: SOB/afib RVR Time Seen by Provider: 04/04/22 12:03 Source: patient and EMS Mode of arrival: EMS History of Present Illness HPI narrative: 81-year-old woman with a history of hypertension, mitral valve insufficiency, left ventricular hypertrophy. Yesterday she was feeling short of breath and more fatigued. This morning she woke up feeling ?not completely clear headed? increased fatigue and of rapid heart rate. She called medics this morning and was given 20 mg of Cardizem EN route by medics with shortness of breath improved. She notes that she has had occasional palpitations throughout her lifetime however in reviewing cardiac and primary care notes that does not look like she carries a diagnosis of atrial fibrillation. She does have mitral valve regurgitation. She is on 50 mg of metoprolol succinate for blood pressure control. She does not complain of headaches, chest pain, abdominal pain, vomiting, diarrhea, lower extremity edema. Related Data Home Medications Medication Instructions Recorded Confirmed multivitamin (Multiple Vitamins 1 tab PO QDAY ##0 11/24/10 04/04/22 tablet) aspirin 81 mg tablet,delayed 81 mg PO DAILY 07/17/18 04/04/22 release (Adult Low Dose Aspirin) Life Protect Device #1 ea 03/17/19 10/10/21 tamsulosin 0.4 mg capsule 0.4 mg PO DAILY 11/29/20 04/04/22 metoprolol succinate 50 mg 50 mg PO DAILY 06/05/21 04/04/22 tablet,extended release 24 hr hydralazine 25 mg tablet 25 mg PO BID 04/04/22 04/04/22 losartan 50 mg tablet 50 mg PO DAILY 04/04/22 04/04/22 simvastatin 40 mg tablet 40 mg PO DAILY 04/04/22 04/04/22 Previous Rx's Medication Instructions Recorded Disabled Parking Permit ea ##1 10/22/16 doxepin 75 mg capsule 75 mg PO BEDTIME #90 caps 06/05/21 ketoconazole 2 % topical cream 1 applic topical DAILY PRN herber 06/05/21 dermatitis #60 grams hydrochlorothiazide 25 mg tablet 25 mg PO QDAY HTN #90 tabs 06/16/21 nitrofurantoin macrocrystal 50 mg See Rx Instructions .Route 06/26/21 capsule .COMPLEX #30 caps apixaban 5 mg tablet (Eliquis) 5 mg PO BID #60 tabs 04/04/22 metoprolol succinate 50 mg 50 mg PO BID #60 tabs 04/04/22 tablet,extended release 24 hr Allergies Allergy/AdvReac Type Severity Reaction Status Date / Time tetracycline Allergy Mild RASH Verified 04/04/22 09:51 menthol [MENTHOL] AdvReac Severe NAUSEA Verified 04/04/22 09:51 peppermint [PEPPERMINT] AdvReac Severe NAUSEA Verified 04/04/22 09:51 phenazopyridine AdvReac Severe VOMITING Verified 04/04/22 09:51 [From PYRIDIUM] Review of Systems Review of Systems Narrative: Remainder of complete review of systems is otherwise unremarkable except for that included in the HPI. Patient History Medical History Allergy (Unknown) Basal cell carcinoma (~02/2013) Candidiasis, cutaneous Chronic venous insufficiency (01/20/02) Decreased GFR Depression (Unknown) Distal radius fracture, left Diverticulosis of large intestine with hemorrhage (02/15/16) Essential hypertension (05/04/04) Hiatal hernia (Unknown) Hyperlipidemia (05/04/04) Osteopenia (2005) Osteoporosis (10/25/05) Psoriasis (11/08/10) Vaginal atrophy (05/02/16) Vitamin D deficiency (~2010) Surgical History History of cataract removal with insertion of prosthetic lens (2015) History of third molar tooth extraction S/P surgery on nasal septum Status post delivery (11/19/1968) Status post cholecystectomy Status post hernia repair (2015) Status post total right knee replacement Status post tubal ligation (11/19/1968) Social History Smoking Status: Never smoker second hand exposure: No alcohol intake: never substance use type: does not use Smoking Status: Never smoker alcohol intake frequency: holidays/special occasions only Substance Use Type: does not use Exam Initial Vital Signs Initial Vital Signs: Vital Signs Temperature 97.8 F 04/04/22 09:35 Pulse Rate 110 H 04/04/22 09:35 Respiratory Rate 04/04/22 09:35 Blood Pressure 115/67 04/04/22 09:35 Pulse Oximetry 97 04/04/22 09:35 Oxygen Delivery Method 04/04/22 09:35 General: Healthy appearing, in no acute distress. Able to give a complete and coherent history. Well-nourished well-developed HEENT: Moist mucous membranes, normal sclera with reactive pupils, Neck: No JVD, supple Respiratory: Lungs are clear to auscultation, no wheezing no rales no rhonchi. Full and symmetrical air movement Cardiac: Irregular with a 2/6 diastolic murmur, no bruits Abdomen: Soft, nontender, good bowel tones, no flank pain Skin: Warm and dry, no rashes Neurologic: Grossly neurologically intact with no obvious asymmetries or abnormalities Extremities: No trauma, well perfused Psych: Cooperative, appropriate insight and affect Course Orders Ordered: ED Orders 04/04/22 09:45 Complete Blood Count AUTO DIFF Stat Comprehensive Metabolic Panel Stat Lipase Stat Magnesium Stat Troponin & CK Cardiac Panel Stat EKG-12 Lead Stat 04/04/22 09:52 XR chest 1V Stat Discontinued Medications Apixaban (Apixaban 5 Mg Tablet) 5 mg PO NOW ONE Stop: 04/04/22 13:06 Last Admin: 04/04/22 13:14 Dose: 5 mg Documented By: MAREK Metoprolol Tartrate (Metoprolol Ir 25 Mg Tablet) 50 mg PO NOW ONE Stop: 04/04/22 13:06 Last Admin: 04/04/22 13:14 Dose: 50 mg Documented By: MAREK Vital Signs Vital signs: Vital Signs - 8 hr 04/04/22 09:35 04/04/22 09:47 04/04/22 10:00 Temperature 97.8 F Pulse Rate 110 H 109 H 94 H Respiratory Rate 22 23 13 Blood Pressure 115/67 Pulse Oximetry 97 95 99 Oxygen Delivery Method Room Air 04/04/22 10:01 04/04/22 10:01 04/04/22 10:30 Temperature Pulse Rate 102 H Respiratory Rate 16 Blood Pressure 165/69 H 167/74 H Pulse Oximetry 98 Oxygen Delivery Method 04/04/22 10:30 04/04/22 11:03 04/04/22 11:04 Temperature Pulse Rate 90 71 94 H Respiratory Rate 22 12 Blood Pressure Pulse Oximetry 97 91 94 Oxygen Delivery Method 04/04/22 11:04 04/04/22 11:30 04/04/22 11:31 Temperature Pulse Rate 94 H Respiratory Rate 14 Blood Pressure 149/70 H 167/70 H Pulse Oximetry 96 Oxygen Delivery Method 04/04/22 11:31 04/04/22 12:00 04/04/22 12:01 Temperature Pulse Rate 99 H 79 Respiratory Rate 13 14 Blood Pressure 162/73 H Pulse Oximetry 96 98 Oxygen Delivery Method 04/04/22 12:01 04/04/22 12:33 04/04/22 12:34 Temperature Pulse Rate 96 H Respiratory Rate 12 24 Blood Pressure 157/70 H Pulse Oximetry 97 98 Oxygen Delivery Method 04/04/22 12:34 04/04/22 12:45 04/04/22 12:45 Temperature Pulse Rate 98 H 106 H Respiratory Rate 16 20 Blood Pressure 168/77 H Pulse Oximetry 96 97 Oxygen Delivery Method 04/04/22 13:00 04/04/22 13:00 04/04/22 13:16 Temperature Pulse Rate 97 H Respiratory Rate 23 Blood Pressure 173/75 H 159/72 H Pulse Oximetry 96 Oxygen Delivery Method 04/04/22 13:16 04/04/22 13:30 04/04/22 13:30 Temperature Pulse Rate 113 H 107 H Respiratory Rate 22 Blood Pressure 170/76 H Pulse Oximetry 96 96 Oxygen Delivery Method 04/04/22 13:45 04/04/22 13:45 04/04/22 14:00 Temperature Pulse Rate 107 H Respiratory Rate 13 Blood Pressure 148/65 H 146/67 H Pulse Oximetry 94 Oxygen Delivery Method 04/04/22 14:00 Temperature Pulse Rate 83 Respiratory Rate 19 Blood Pressure Pulse Oximetry 95 Oxygen Delivery Method MDM - Arrhythmia/Palpitations Lab Data Result diagrams: 04/04/22 09:45 04/04/22 09:45 Labs: Lab Results 04/04/22 04/04/22 Range/Units 09:45 09:45 WBC 6.4 (4.5-11.0) X10^3/uL RBC 4.39 (4.0-5.2) X10^6/uL Hgb 13.5 (12.0-16.0) g/dL Hct 39.1 (36-46) % MCV 89.0 (80-100) fL MCH 30.6 (26-34) PG MCHC 34.4 (30-36) % RDW 13.8 (11.6-14.8) % Plt Count 230 (150-400) X10^3/uL Neut % (Auto) 52.5 (50-75) % Lymph % (Auto) 36.0 (25-40) % Cole % (Auto) 6.5 (3-14) % Eos % (Auto) 4.0 (2-4) % Baso % (Auto) 1.0 (0-2) % Neut # (Auto) 3400 (0054-7680) /uL Lymph # (Auto) 2300 (0051-4334) /uL Cole # (Auto) 400 (0-900) /uL Eos # (Auto) 300 (0-450) /uL Baso # (Auto) 100 (0-100) /uL Sodium 141 (137-145) mmol/L Potassium 3.2 L (3.4-5.1) mmol/L Chloride 102 (98-107) mmol/L Carbon Dioxide 21 L (22-32) mmol/L BUN 19 H (7-17) mg/dL Creatinine 0.91 (0.52-1.04) mg/dL Estimated GFR > 60 (>60) mL/min BUN/Creatinine Ratio 20.9 (6-22) Glucose 134 H (80-110) mg/dL Calcium 9.0 (8.4-10.2) mg/dL Magnesium 2.0 (1.6-2.3) mg/dL Total Bilirubin 1.1 (0.2-1.3) mg/dL AST 29 (14-36) IU/L ALT 22 (<35) IU/L Alkaline Phosphatase 101 (38-126) U/L Total Creatine Kinase 121 (30-135) U/L CK-MB (CK-2) 0.97 (<2.37) ng/mL CK-MB (CK-2) Rel Index 0.8 L (1.5-5.0) % Troponin I < 0.012 (0.01-0.034) ng/mL Total Protein 7.9 (6.3-8.2) g/dL Albumin 4.5 (3.5-5.0) g/dL Globulin 3.4 (1.7-4.1) g/dL Albumin/Globulin Ratio 1.3 (1.0-2.8) Lipase 48 (23-300) U/L Imaging Data Chest x-ray: Radiologist's Impresson: FINDINGS:? ? Surgical changes and devices:? None.? ? Lungs and pleura:? Lungs are clear.? No pleural effusions or pneumothorax.? ? Mediastinum:? Mediastinal contours appear normal.? Heart size is normal.? ? Bones and chest wall:? No suspicious bony lesions.? Overlying soft tissues appear unremarkable.? ? IMPRESSION:? No acute cardiopulmonary pathology. ? ? Dictated by: Joel Martino M.D. on 04/04/2022 at 10:23 ? ? ECG Data Interpretation: Atrial fibrillation at [address] T wave changes MDM Narrative Medical decision making narrative: 81-year-old woman with what appears to be new atrial fibrillation relatively rate controlled at 100 while at rest however goes up to 120-130 with any movement. Her [id number] score is 4 suggesting that anticoagulation would be appropriate. She is unsure how long this new rhythm has been in place so cardioversion in the emergency department would not be appropriate without a BENJY. with her metoprolol, she may have had a rate controlled atrial fibrillation paroxysmally were chronically for an extended period of time. She does have a history of mitral regurgitation and most recent echocardiogram, 01/2021, showed an ejection fraction in the 55% range Case is reviewed with Dr. Hurd. Given the normal labs, fact that she is feeling better at this time recommendation was to increase her metoprolol to b.i.d. at Eliquis 5 mg b.i.d. and have her follow-up with her decay control operator as an outpatient regarding her presumed new diagnosis of atrial fibrillation. Care is reviewed with patient and her daughter. She is hemodynamically stable, heart rate is in the mid 70s, she is steady when standing and no longer short of breath. She is safe for home discharge and understands the diagnosis, need for follow-up in the medications. Discharge Plan Departure Patient Disposition: Home Clinical Impression: Atrial fibrillation, new onset Instructions: DI for Atrial Fibrillation Activity Restrictions/Additional Instructions: Thank you for coming in today You are in atrial fibrillation. Looking through your previous records including from your decay control operator, there has been no prior mention of atrial fibrillation for you. I suspect that this is new. Fortunately, the metoprolol that you are already on for your blood pressure has been quite helpful in keeping the heart rate controlled. One of the bigger risks with atrial fibrillation is Stroke. Because of that I am going to write you a prescription for Eliquis, 5 mg daily this is a blood thinner. I also want you to increase your metoprolol succinate 50 mg from just morning to morning and evening. This is both a blood pressure and heart rate control medication, do make sure you are checking your blood pressure once a day. This afternoon, I want you to call your decay control operator and let him know that you are in the emergency department and diagnosed with new atrial fibrillation and need to be seen in follow-up. Having the echocardiogram scheduled next week is going to be perfect timing. Reasons to return to the emergency room include chest pain, worsening shortness of breath, significant swelling in your feet, new symptoms or fevers New prescriptions were electronically transmitted to [facility] Prescriptions: New metoprolol succinate 50 mg tablet extended release 24 hr 50 mg PO BID Qty: 60 0RF Eliquis 5 mg tablet 5 mg PO BID Qty: 60 0RF No Action aspirin [Adult Low Dose Aspirin] 81 mg tablet,delayed release (DR/EC) 81 mg PO DAILY multivitamin [Multiple Vitamins] 1 EACH tablet 1 tab PO QDAY Qty: 0 Disabled Parking Permit Qty: 1 0RF hydrochlorothiazide 25 mg tablet 25 mg PO QDAY Qty: 90 3RF Rx Instructions: nitrofurantoin macrocrystal 50 mg capsule See Rx Instructions .ROUTE .COMPLEX Qty: 30 11RF Dose Instruction: take 1 capsule by mouth once daily. Please schedule an appointment for further refills. Rx Instructions: take 1 capsule by mouth once daily. Please schedule an appointment for further refills. (DME) Life Protect Device Qty: 1 Rx Instructions: As directed tamsulosin 0.4 mg capsule 0.4 mg PO DAILY doxepin 75 mg capsule 75 mg PO BEDTIME Qty: 90 3RF ketoconazole 2 % cream 1 applic TOP DAILY PRN (Reason: herber dermatitis) Qty: 60 3RF Rx Instructions: Apply once daily to affected area as needed metoprolol succinate 50 mg tablet extended release 24 hr 50 mg PO DAILY losartan 50 mg tablet 50 mg PO DAILY Label Comments: take 1 tablet by mouth daily hydralazine 25 mg tablet 25 mg PO BID Label Comments: take 1 tablet by mouth twice a day simvastatin 40 mg tablet 40 mg PO DAILY Rx Instructions: take 1 tablet by mouth once daily Referrals: Rashid Rushing MD [Primary Care Provider] -
--- NOTE | 2022-04-04 12:34 | PC.NURSE ---
on returning to bed pt hr up to 123bpm. steady gait. within a minute hr 99bpm
[2022-04-04] MEDS: METOPROLOL IR 25 MG TABLET 50 MG PO (13:14)
[2022-04-04] MEDS: APIXABAN 5 MG TABLET PO (13:14)
== END 2022-04-04 14:15 | disposition home or self-care (01) ==
PROVIDERS: Emergency Provider Emergency Medicine; PCP Family Medicine
DX: I48.91 Unspecified atrial fibrillation (principal); R00.2 Palpitations
CPT/HCPCS: 71045; 80053; 82550; 82553; 83690; 83735; 84484; 85025; 93005; 99283; 99284

== ENCOUNTER 2022-07-16 11:04 | Emergency (ER) | payer MEDICARE, SELFPAY ==
[2022-07-16] VITALS (34 sets, daily range): BP systolic 156–235; BP diastolic 70–105; PULSE 63–95; RESP 10–37; TEMP 36.7; O2SAT 92–98
--- NOTE | 2022-07-16 11:47 | DI.RAD.S_ITS ---
PROCEDURE: XR CHEST 1V INDICATIONS: chest pain TECHNIQUE: One view of the chest was acquired. COMPARISON: [facility], CR, XR CHEST 1V, 04/04/2022, 9:58. FINDINGS: Surgical changes and devices: None. Lungs and pleura: Lungs are clear. No pleural effusions or pneumothorax. Mediastinum: Mediastinal contours appear normal. Heart size is normal. Bones and chest wall: No suspicious bony lesions. Overlying soft tissues appear unremarkable. IMPRESSION: No acute cardiopulmonary pathology. Dictated by: Joel Martino M.D. on 07/16/2022 at 12:34 Approved by: Joel Martino M.D. on 07/16/2022 at 12:34
[2022-07-16 11:56] LABS: Add Manual Diff / Slide Review NO; Basophils Absolute Auto 100 /uL (0-100); Basophils Percent Auto 0.6 % (0-2); Eosinophils Absolute Auto 200 /uL (0-450); Eosinophils Percent Auto 2.4 % (2-4); Hematocrit 38.7 % (36-46); Hemoglobin 13.2 g/dL (12.0-16.0); Lymphocytes Absolute Auto 1700 /uL (1100-4500); Mean Corpuscular HGB Conc 34.1 % (30-36); Mean Corpuscular Hemoglobin 30.3 PG (26-34); Mean Corpuscular Volume 88.8 fL (80-100); Monocytes Absolute Auto 500 /uL (0-900); Monocytes Percent Auto 6.2 % (3-14); Neutrophils Absolute Auto 5400 /uL (1500-7000); Neutrophils Percent Auto 68.8 % (50-75); Platelet Count 262 X10^3/uL (150-400); Red Blood Cell Count 4.35 X10^6/uL (4.0-5.2); Red Cell Distribution Width 13.6 % (11.6-14.8); White Blood Cell Count 7.9 X10^3/uL (4.5-11.0)
[2022-07-16 11:58] LABS: INR 1.5 (0.9-1.3); Prothrombin Time 16.8 SECONDS (10.1-12.7)
[2022-07-16 12:01] LABS: PTT Partial Thromboplastin Tim 35 SECONDS (26-36)
[2022-07-16 12:02] LABS: Appearance Urine UA CLOUDY; Bilirubin Urine UA NEGATIVE (NEGATIVE); Color Urine UA YELLOW; Glucose Urine UA NEGATIVE (Negative); Ketones Urine UA NEGATIVE (NEGATIVE); Lactate (Lactic Acid) 1.3 mmol/L (0.7-2.1); Leukocyte Esterase Urine UA 2+ (NEGATIVE); Nitrite Urine UA NEGATIVE (Negative); Occult Blood Urine UA TRACE-LYSED (Negative); Protein Urine UA 1+ (Negative); Specific Gravity Urine UA 1.015 (1.000-1.035); Urobilinogen Urine UA 0.2 E.U./dL (0.2); pH Urine UA 5.5 (4.5-8.0)
[2022-07-16 12:03] LABS: Alanine Aminotransferase 23 IU/L (<35); Albumin 4.6 g/dL (3.5-5.0); Albumin Globulin Ratio 1.3 (1.0-2.8); Alkaline Phosphatase 107 U/L (38-126); Aspartate Aminotransferase 31 IU/L (14-36); BUN Creatinine Ratio 22.1 (6-22); Bilirubin Total 1.5 mg/dL (0.2-1.3); Blood Urea Nitrogen 21 mg/dL (7-17); Calcium 9.1 mg/dL (8.4-10.2); Carbon Dioxide 25 mmol/L (22-32); Chloride 102 mmol/L (98-107); Creatine Kinase 86 U/L (30-135); Estimated Glomerular Filt Rate 59 mL/min (>60); Globulin 3.5 g/dL (1.7-4.1); Glucose 113 mg/dL (80-110); HEMOLYSIS < 15 (0-50); Lipase 76 U/L (23-300); Potassium 3.6 mmol/L (3.4-5.1); Sodium 140 mmol/L (137-145); Total Protein 8.1 g/dL (6.3-8.2)
[2022-07-16 12:06] LABS: Bacteria Urine Few (2-10); Culture Indicated Urine Specimen Cultured; RBC Urine None Seen (0-5/HPF); WBC Urine 10-30/HPF (0-5/HPF)
[2022-07-16 12:12] LABS: NT-proBNP (BNP-Adult 18+) 310 pg/mL (<450)
[2022-07-16 12:15] LABS: Troponin I < 0.012 ng/mL (0.01-0.034)
[2022-07-16 12:49] LABS: Influenza A - CEPHEID Flu A NEGATIVE (NEGATIVE); Influenza B - CEPHEID Flu B NEGATIVE (NEGATIVE); Respiratory Syncytial Virus Negative (Negative)
[2022-07-16 12:55] LABS: COVID-19 CEPHEID 4-PLEX PCR Negative (Negative)
--- NOTE | 2022-07-16 13:32 | DI.CT.S_ITS ---
PROCEDURE: CT ANGIO CHEST PE PROTOCOL INDICATIONS: short of breath TECHNIQUE: After the administration of intravenous contrast, 2 mm thick sections acquired from the pulmonary apices to the posterior costophrenic angles. 3-dimensional maximum intensity projection (MIP) coronal and sagittal reformats were then acquired through the thorax. For radiation dose reduction, the following was used: automated exposure control, adjustment of mA and/or kV according to patient size. COMPARISON: None. FINDINGS: Image quality: Excellent. Pulmonary arteries: Pulmonary arteries are normal in size, and demonstrate no intraluminal filling defects to suggest central pulmonary embolism. Lungs and pleura: Dependent atelectasis in posterior and lateral periphery of bilateral lung mcdaniels are seen. Mild centrilobular emphysema is seen. No pleural effusions or pneumothorax. Central and peripheral airways are patent. Mediastinum: Heart size is enlarged, without pericardial effusion. No mediastinal or hilar adenopathy. Thoracic aorta is normal in caliber and enhancement. Esophagus is normal in caliber, without hiatal hernia. Bones and chest wall: No suspicious bony lesions. Ribs and thoracic spine appear intact throughout. Thyroid gland is within normal limits. No axillary or supraclavicular adenopathy. Abdomen: Visualized upper abdominal solid organs appear normal in the early arterial phase of enhancement. IMPRESSION: 1. No evidence of pulmonary emboli. No thoracic aortic aneurysm or gross dissection. 2. Dependent atelectasis scattered in periphery of bilateral lung mcdaniels. Mild centrilobular emphysema. No focal infiltrate, pleural effusion or pneumothorax. 3. Cardiomegaly, no pericardial effusion. No mediastinal or hilar lymphadenopathy. Dictated by: Joel Martino M.D. on 07/16/2022 at 14:30 Approved by: Joel Martino M.D. on 07/16/2022 at 14:34
--- NOTE | 2022-07-16 13:38 | ED.SOB ---
HPI - SOB/Dyspnea General Chief Complaint: Shortness of Breath/Dyspnea Stated Complaint: irregular heartbeat/SOB/chest tight/legs numb T-1 Time Seen by Provider: 07/16/22 12:48 Source: patient and family Mode of arrival: Ambulatory Limitations: no limitations History of Present Illness HPI Narrative: Patient is 82-year-old female history of paroxysmal atrial fibrillation, hypertension presenting today with for 80 of symptoms. She reports that she is had diarrhea ongoing for the last couple of days at least 6 to 8 times a day it is nonbloody. She denies any nausea or vomiting. She is been able to keep broth and other liquids down. She reports that she feels short of breath with exertion she feels like she is had her AFib she thought she had yesterday. She also has what skipped beats. She said she was having skipped beats. She does not feel short of breath at rest she denies any orthopnea. No fever chills or cough. She denies any dizziness. She is found to be quite hypertensive in the emergency department with blood pressures in the 200 range. She is adamant that she does not have any chest pain now. Related Data Home Medications Medication Instructions Recorded Confirmed multivitamin (Multiple Vitamins 1 tab PO QDAY ##0 11/24/10 04/04/22 tablet) aspirin 81 mg tablet,delayed 81 mg PO DAILY 07/17/18 04/04/22 release (Adult Low Dose Aspirin) Life Protect Device #1 ea 03/17/19 10/10/21 tamsulosin 0.4 mg capsule 0.4 mg PO DAILY 11/29/20 04/04/22 metoprolol succinate 50 mg 50 mg PO DAILY 06/05/21 04/04/22 tablet,extended release 24 hr hydralazine 25 mg tablet 25 mg PO BID 04/04/22 04/04/22 losartan 50 mg tablet 50 mg PO DAILY 04/04/22 04/04/22 Previous Rx's Medication Instructions Recorded Disabled Parking Permit ea ##1 10/22/16 ketoconazole 2 % topical cream 1 applic topical DAILY PRN herber 06/05/21 dermatitis #60 grams apixaban 5 mg tablet (Eliquis) 5 mg PO BID #60 tabs 04/04/22 metoprolol succinate 50 mg 50 mg PO BID #60 tabs 09/28/22 tablet,extended release 24 hr nitrofurantoin macrocrystal 50 mg See Rx Instructions .Route 04/19/22 capsule .COMPLEX #30 caps doxepin 75 mg capsule 75 mg PO BEDTIME #30 caps 07/12/22 hydrochlorothiazide 25 mg tablet 25 mg PO QDAY HTN #30 tabs 07/12/22 simvastatin 40 mg tablet 40 mg PO DAILY #30 tabs 07/12/22 Allergies Allergy/AdvReac Type Severity Reaction Status Date / Time tetracycline Allergy Mild RASH Verified 07/16/22 11:45 menthol [MENTHOL] AdvReac Severe NAUSEA Verified 07/16/22 11:45 peppermint [PEPPERMINT] AdvReac Severe NAUSEA Verified 07/16/22 11:45 phenazopyridine AdvReac Severe VOMITING Verified 07/16/22 11:45 [From PYRIDIUM] Patient History Medical History Allergy (Unknown) Basal cell carcinoma (~02/2013) Candidiasis, cutaneous Chronic venous insufficiency (01/20/02) Decreased GFR Depression (Unknown) Distal radius fracture, left Diverticulosis of large intestine with hemorrhage (02/15/16) Essential hypertension (05/04/04) Hiatal hernia (Unknown) Hyperlipidemia (05/04/04) Osteopenia (2005) Osteoporosis (10/25/05) Psoriasis (11/08/10) Vaginal atrophy (05/02/16) Vitamin D deficiency (~2010) Surgical History History of cataract removal with insertion of prosthetic lens (2015) History of third molar tooth extraction S/P surgery on nasal septum Status post delivery (11/19/1968) Status post cholecystectomy Status post hernia repair (2015) Status post total right knee replacement Status post tubal ligation (11/19/1968) Social History Smoking Status: Never smoker second hand exposure: No alcohol intake: never substance use type: does not use Smoking Status: Never smoker alcohol intake frequency: holidays/special occasions only Substance Use Type: does not use Exam Initial Vital Signs Initial Vital Signs: Vital Signs Temperature 98.1 F 07/16/22 11:15 Pulse Rate 75 07/16/22 11:15 Respiratory Rate 24 07/16/22 11:15 Blood Pressure 215/94 H 07/16/22 11:15 Pulse Oximetry 96 07/16/22 11:15 Oxygen Delivery Method 07/16/22 11:15 GENERAL: Alert pleasant 82-year-old female and in no acute distress. HEENT: Head atraumatic,EOMI, pupils reactive, face symmetric, moist mucous membranes CARDIOVASCULAR: Regular rate and rhythm without murmurs, rubs or gallops. RESPIRATORY: Breath sounds equal bilaterally, no wheezes rales or rhonchi. ABDOMEN: Soft, nontender. Normoactive bowel sounds all 4 quadrants. No guarding or rebound. EXTREMITIES: Normal range of motion, no clubbing or edema. Neurovascularly intact NEUROLOGICAL: Alert and oriented x4.Normal gait and speech. SKIN: Warm, dry, no laceration, no petechiae, no rashes or lesions. Course Orders Ordered: ED Orders 07/16/22 11:37 BNP [NT-proBNP (BNP-Adult 18+)] Stat Complete Blood Count AUTO DIFF Stat Comprehensive Metabolic Panel Stat Lactate (Lactic Acid) Stat Lipase Stat Magnesium Stat Partial Thromboplastin Time Stat Prothrombin Time INR Stat Troponin & CK Cardiac Panel Stat Urinalysis and Microscopic Stat Urine Culture Stat 07/16/22 11:41 Covid-19 + FLU A/B + RSV - PCR Stat 07/16/22 11:47 XR chest 1V Stat EKG-12 Lead Stat 07/16/22 13:32 CT angio chest PE protocol Stat 07/16/22 14:22 Trop I [Troponin I] Stat Discontinued Medications Sodium Chloride (Normal Saline 0.9%) 1,000 mls @ 1,000 mls/hr IV BOLUS ONE Stop: 07/16/22 14:51 Last Infusion: 07/16/22 16:02 Dose: 0 mls/hr Documented By: Admin: 07/16/22 14:23 Dose: 1,000 mls/hr Documented By: ELEUTERIO Labetalol HCl (Labetalol 20 Mg/4 Ml Syringe) 10 mg IV NOW ONE; Protocol Stop: 07/16/22 13:33 Last Admin: 07/16/22 16:02 Dose: Not Given Documented By: BS Vital Signs Vital signs: Vital Signs - 8 hr 07/16/22 12:55 07/16/22 12:10 07/16/22 12:10 Pulse Rate 86 70 Respiratory Rate 11 L Blood Pressure 205/88 H 205/86 H Pulse Oximetry 97 Oxygen Delivery Method 07/16/22 12:20 07/16/22 12:20 07/16/22 12:30 Pulse Rate 69 Respiratory Rate 13 Blood Pressure 205/87 H 181/85 H Pulse Oximetry 97 Oxygen Delivery Method 07/16/22 12:30 07/16/22 12:40 07/16/22 12:48 Pulse Rate 80 79 85 Respiratory Rate 15 36 H 19 Blood Pressure Pulse Oximetry 96 97 95 Oxygen Delivery Method 07/16/22 12:48 07/16/22 12:50 07/16/22 12:50 Pulse Rate 85 Respiratory Rate 10 L Blood Pressure 235/105 H 212/93 H Pulse Oximetry 98 Oxygen Delivery Method 07/16/22 12:53 07/16/22 12:53 07/16/22 12:54 Pulse Rate 82 81 Respiratory Rate 19 17 Blood Pressure 205/88 H Pulse Oximetry 98 97 Oxygen Delivery Method 07/16/22 12:54 07/16/22 12:55 07/16/22 12:55 Pulse Rate 84 Respiratory Rate 16 Blood Pressure 173/84 H 180/85 H Pulse Oximetry 97 Oxygen Delivery Method 07/16/22 13:00 07/16/22 13:00 07/16/22 13:10 Pulse Rate 81 Respiratory Rate 14 Blood Pressure 205/84 H 188/79 H Pulse Oximetry 97 Oxygen Delivery Method 07/16/22 13:10 07/16/22 13:20 07/16/22 13:20 Pulse Rate 63 78 Respiratory Rate 11 L 14 Blood Pressure 198/90 H Pulse Oximetry 98 98 Oxygen Delivery Method 07/16/22 13:30 07/16/22 13:30 07/16/22 13:40 Pulse Rate 88 80 Respiratory Rate 34 H 13 Blood Pressure 217/99 H Pulse Oximetry 98 97 Oxygen Delivery Method 07/16/22 14:19 07/16/22 14:20 07/16/22 14:21 Pulse Rate 75 74 86 Respiratory Rate 25 H 12 15 Blood Pressure Pulse Oximetry 97 97 96 Oxygen Delivery Method 07/16/22 14:21 07/16/22 14:30 07/16/22 14:34 Pulse Rate 69 79 Respiratory Rate 18 21 Blood Pressure 167/72 H Pulse Oximetry 95 96 Oxygen Delivery Method 07/16/22 14:34 07/16/22 14:44 07/16/22 14:46 Pulse Rate 95 H Respiratory Rate 37 H Blood Pressure 173/77 H 188/87 H Pulse Oximetry 92 Oxygen Delivery Method 07/16/22 14:46 07/16/22 14:50 07/16/22 15:00 Pulse Rate 84 79 Respiratory Rate 16 22 Blood Pressure 177/80 H Pulse Oximetry 97 96 Oxygen Delivery Method 07/16/22 15:00 07/16/22 15:10 07/16/22 15:16 Pulse Rate 83 71 80 Respiratory Rate 25 H 32 H 14 Blood Pressure Pulse Oximetry 96 95 95 Oxygen Delivery Method 07/16/22 15:16 07/16/22 15:20 07/16/22 15:30 Pulse Rate 81 Respiratory Rate 24 Blood Pressure 161/72 H 156/70 H Pulse Oximetry 95 Oxygen Delivery Method 07/16/22 15:30 07/16/22 15:40 07/16/22 15:45 Pulse Rate 64 80 76 Respiratory Rate 15 20 20 Blood Pressure Pulse Oximetry 95 95 95 Oxygen Delivery Method Room Air 07/16/22 15:45 Pulse Rate Respiratory Rate Blood Pressure 164/73 H Pulse Oximetry Oxygen Delivery Method MDM - SOB/Dyspnea Lab Data Result diagrams: 07/16/22 11:37 07/16/22 11:37 Labs: Lab Results 07/16/22 07/16/22 07/16/22 Range/Units 11:37 11:37 11:37 WBC 7.9 (4.5-11.0) X10^3/uL RBC 4.35 (4.0-5.2) X10^6/uL Hgb 13.2 (12.0-16.0) g/dL Hct 38.7 (36-46) % MCV 88.8 (80-100) fL MCH 30.3 (26-34) PG MCHC 34.1 (30-36) % RDW 13.6 (11.6-14.8) % Plt Count 262 (150-400) X10^3/uL Neut % (Auto) 68.8 (50-75) % Lymph % (Auto) 22.0 L (25-40) % [place] % (Auto) 6.2 (3-14) % Eos % (Auto) 2.4 (2-4) % Baso % (Auto) 0.6 (0-2) % Neut # (Auto) 5400 (9110-3615) /uL Lymph # (Auto) 1700 (9250-1844) /uL [place] # (Auto) 500 (0-900) /uL Eos # (Auto) 200 (0-450) /uL Baso # (Auto) 100 (0-100) /uL PT 16.8 H (10.1-12.7) SECONDS INR 1.5 H (0.9-1.3) APTT 35 (26-36) SECONDS Sodium 140 (137-145) mmol/L Potassium 3.6 (3.4-5.1) mmol/L Chloride 102 (98-107) mmol/L Carbon Dioxide 25 (22-32) mmol/L BUN 21 H (7-17) mg/dL Creatinine 0.95 (0.52-1.04) mg/dL Estimated GFR 59 L (>60) mL/min BUN/Creatinine Ratio 22.1 H (6-22) Glucose 113 H (80-110) mg/dL Lactate (0.7-2.1) mmol/L Calcium 9.1 (8.4-10.2) mg/dL Magnesium 2.0 (1.6-2.3) mg/dL Total Bilirubin 1.5 H (0.2-1.3) mg/dL AST 31 (14-36) IU/L ALT 23 (<35) IU/L Alkaline Phosphatase 107 (38-126) U/L Total Creatine Kinase 86 (30-135) U/L CK-MB (CK-2) TNP CK-MB (CK-2) Rel Index TNP Troponin I < 0.012 (0.01-0.034) ng/mL NT-Pro-B Natriuret Pep (<450) pg/mL Total Protein 8.1 (6.3-8.2) g/dL Albumin 4.6 (3.5-5.0) g/dL Globulin 3.5 (1.7-4.1) g/dL Albumin/Globulin Ratio 1.3 (1.0-2.8) Lipase 76 (23-300) U/L Urine Color Urine Appearance Urine pH (4.5-8.0) Ur Specific [place] (1.000-1.035) Urine Protein (Negative) Urine Glucose (UA) (Negative) g/dL Urine Ketones (NEGATIVE) Urine Occult Blood (Negative) Urine Nitrate (Negative) Urine Bilirubin (NEGATIVE) Urine Urobilinogen (0.2) E.U./dL Ur Leukocyte Esterase (NEGATIVE) Urine RBC (0-5/HPF) Urine WBC (0-5/HPF) Urine Bacteria (None) Ur Culture Indicated? SARS-CoV-2 (PCR) (Negative) Influenza A (RT-PCR) (NEGATIVE) Influenza B (RT-PCR) (NEGATIVE) RSV (PCR) (Negative) 07/16/22 07/16/22 07/16/22 Range/Units 11:37 11:37 11:37 WBC (4.5-11.0) X10^3/uL RBC (4.0-5.2) X10^6/uL Hgb (12.0-16.0) g/dL Hct (36-46) % MCV (80-100) fL MCH (26-34) PG MCHC (30-36) % RDW (11.6-14.8) % Plt Count (150-400) X10^3/uL Neut % (Auto) (50-75) % Lymph % (Auto) (25-40) % [place] % (Auto) (3-14) % Eos % (Auto) (2-4) % Baso % (Auto) (0-2) % Neut # (Auto) (4651-7183) /uL Lymph # (Auto) (8354-9334) /uL [place] # (Auto) (0-900) /uL Eos # (Auto) (0-450) /uL Baso # (Auto) (0-100) /uL PT (10.1-12.7) SECONDS INR (0.9-1.3) APTT (26-36) SECONDS Sodium (137-145) mmol/L Potassium (3.4-5.1) mmol/L Chloride (98-107) mmol/L Carbon Dioxide (22-32) mmol/L BUN (7-17) mg/dL Creatinine (0.52-1.04) mg/dL Estimated GFR (>60) mL/min BUN/Creatinine Ratio (6-22) Glucose (80-110) mg/dL Lactate 1.3 (0.7-2.1) mmol/L Calcium (8.4-10.2) mg/dL Magnesium (1.6-2.3) mg/dL Total Bilirubin (0.2-1.3) mg/dL AST (14-36) IU/L ALT (<35) IU/L Alkaline Phosphatase (38-126) U/L Total Creatine Kinase (30-135) U/L CK-MB (CK-2) CK-MB (CK-2) Rel Index Troponin I (0.01-0.034) ng/mL NT-Pro-B Natriuret Pep 310 (<450) pg/mL Total Protein (6.3-8.2) g/dL Albumin (3.5-5.0) g/dL Globulin (1.7-4.1) g/dL Albumin/Globulin Ratio (1.0-2.8) Lipase (23-300) U/L Urine Color Yellow Urine Appearance Cloudy Urine pH 5.5 (4.5-8.0) Ur Specific [place] 1.015 (1.000-1.035) Urine Protein 1+ H (Negative) Urine Glucose (UA) Negative (Negative) g/dL Urine Ketones Negative (NEGATIVE) Urine Occult Blood Trace-lysed (Negative) Urine Nitrate Negative (Negative) Urine Bilirubin Negative (NEGATIVE) Urine Urobilinogen 0.2 (0.2) E.U./dL Ur Leukocyte Esterase 2+ H (NEGATIVE) Urine RBC None seen (0-5/HPF) Urine WBC 10-30/hpf H (0-5/HPF) Urine Bacteria Few (2-10) H (None) Ur Culture Indicated? Specimen cultured SARS-CoV-2 (PCR) (Negative) Influenza A (RT-PCR) (NEGATIVE) Influenza B (RT-PCR) (NEGATIVE) RSV (PCR) (Negative) 07/16/22 07/16/22 Range/Units 11:41 14:22 WBC (4.5-11.0) X10^3/uL RBC (4.0-5.2) X10^6/uL Hgb (12.0-16.0) g/dL Hct (36-46) % MCV (80-100) fL MCH (26-34) PG MCHC (30-36) % RDW (11.6-14.8) % Plt Count (150-400) X10^3/uL Neut % (Auto) (50-75) % Lymph % (Auto) (25-40) % [place] % (Auto) (3-14) % Eos % (Auto) (2-4) % Baso % (Auto) (0-2) % Neut # (Auto) (5582-2421) /uL Lymph # (Auto) (5174-0579) /uL [place] # (Auto) (0-900) /uL Eos # (Auto) (0-450) /uL Baso # (Auto) (0-100) /uL PT (10.1-12.7) SECONDS INR (0.9-1.3) APTT (26-36) SECONDS Sodium (137-145) mmol/L Potassium (3.4-5.1) mmol/L Chloride (98-107) mmol/L Carbon Dioxide (22-32) mmol/L BUN (7-17) mg/dL Creatinine (0.52-1.04) mg/dL Estimated GFR (>60) mL/min BUN/Creatinine Ratio (6-22) Glucose (80-110) mg/dL Lactate (0.7-2.1) mmol/L Calcium (8.4-10.2) mg/dL Magnesium (1.6-2.3) mg/dL Total Bilirubin (0.2-1.3) mg/dL AST (14-36) IU/L ALT (<35) IU/L Alkaline Phosphatase (38-126) U/L Total Creatine Kinase (30-135) U/L CK-MB (CK-2) CK-MB (CK-2) Rel Index Troponin I < 0.012 (0.01-0.034) ng/mL NT-Pro-B Natriuret Pep (<450) pg/mL Total Protein (6.3-8.2) g/dL Albumin (3.5-5.0) g/dL Globulin (1.7-4.1) g/dL Albumin/Globulin Ratio (1.0-2.8) Lipase (23-300) U/L Urine Color Urine Appearance Urine pH (4.5-8.0) Ur Specific [place] (1.000-1.035) Urine Protein (Negative) Urine Glucose (UA) (Negative) g/dL Urine Ketones (NEGATIVE) Urine Occult Blood (Negative) Urine Nitrate (Negative) Urine Bilirubin (NEGATIVE) Urine Urobilinogen (0.2) E.U./dL Ur Leukocyte Esterase (NEGATIVE) Urine RBC (0-5/HPF) Urine WBC (0-5/HPF) Urine Bacteria (None) Ur Culture Indicated? SARS-CoV-2 (PCR) Negative (Negative) Influenza A (RT-PCR) Flu a negative (NEGATIVE) Influenza B (RT-PCR) Flu b negative (NEGATIVE) RSV (PCR) Negative (Negative) Imaging Data CT scan - chest: Radiologist's Impression: Signed Patient: Niru Gamble MR#: [id number] : 1940 Acct:[id number] Age/Sex: 82 / F Date of Service: 07/16/22 Loc: ED Accession Number: [id number] ?? Procedure: CT angio chest PE protocol Ordering Provider: Wilma Kolb D.O. PROCEDURE:? CT ANGIO CHEST PE PROTOCOL ? INDICATIONS:? short of breath ? TECHNIQUE:? After the administration of intravenous contrast, 2 mm thick sections acquired from the pulmonary apices to the posterior costophrenic angles.? 3-dimensional maximum intensity projection (MIP) coronal and sagittal reformats were then acquired through the thorax.? For radiation dose reduction, the following was used:? automated exposure control, adjustment of mA and/or kV according to patient size.? ? COMPARISON:? None. ? FINDINGS:? Image quality:? Excellent.? ? Pulmonary arteries:? Pulmonary arteries are normal in size, and demonstrate no intraluminal filling defects to suggest central pulmonary embolism.? ? Lungs and pleura:? Dependent atelectasis in posterior and lateral periphery of bilateral lung mcdaniels are seen.? Mild centrilobular emphysema is seen.? No pleural effusions or pneumothorax.? Central and peripheral airways are patent.? ? Mediastinum:? Heart size is enlarged, without pericardial effusion.? No mediastinal or hilar adenopathy.? Thoracic aorta is normal in caliber and enhancement.? Esophagus is normal in caliber, without hiatal hernia.? ? Bones and chest wall:? No suspicious bony lesions.? Ribs and thoracic spine appear intact throughout.? Thyroid gland is within normal limits.? No axillary or supraclavicular adenopathy.? ? Abdomen:? Visualized upper abdominal solid organs appear normal in the early arterial phase of enhancement.? ? IMPRESSION:? 1. No evidence of pulmonary emboli.? No thoracic aortic aneurysm or gross dissection. 2. Dependent atelectasis scattered in periphery of bilateral lung mcdaniels.? Mild centrilobular emphysema.? No focal infiltrate, pleural effusion or pneumothorax. 3. Cardiomegaly, no pericardial effusion.? No mediastinal or hilar lymphadenopathy. ? ? ? Dictated by: Joel Martino M.D. on 07/16/2022 at 14:30 ? ? ECG Data Interpretation: Normal sinus rhythm rate 89 CO interval 190 QRS [address] changes no T-wave inversions MDM Narrative Medical decision making narrative: Patient 82-year-old female history of paroxysmal atrial fibrillation on Eliquis presenting today with right symptoms of diarrhea palpitations. During her emergency department stay she was noted to be pretty persistently hypertensive and then short of breath with exertion. Workup does not show any evidence of end-organ damage 2- troponins no evidence of significant dehydration BUN is 21 creatinine 0.95. Due to her persistently elevated high blood pressure shortness of breath and possible arrhythmia I did do a CT angio. She was never really hypoxic she is on Eliquis she should not have a pulmonary embolism how and CT angio does not show any abnormality. There is no evidence of dissection either. Without any sort of intervention her blood pressure decreased into the 150s. Labetalol was ordered but it was never given. MDM CC: Diarrhea shortness of breath Complicating co-morbidities: Paroxysmal atrial fibrillation hypertension Corroborating data: [ ] Data collected from: [ ] Medical records reviewed: PCP note from 10/10/2021 reviewed noted have CKD and hypertension that is out of control at that time losartan was added, not been seen since Differential considered: Pulmonary embolism, acute coronary syndrome, dehydration Exam documented above, pertinent findings include: [ ] Lab Test results independently reviewed as above. Pertinent findings: Negative CT angio, 2- troponins Independently reviewed EKG as above Imaging studies independently reviewed: Consultations: None Treatments: None Re-evaluations: [ ] Discussion:[ ] Diagnosis: Palpitation Disposition: see below, along with detailed discharge instructions that have been reviewed with patient as well as indications for ED re-evaluation and additional outpatient follow up Discharge Plan Departure Patient Disposition: Home Clinical Impression: Palpitations, Diarrhea, Essential hypertension Instructions: Diarrhea, DI for Palpitations Activity Restrictions/Additional Instructions: *You have been diagnosed with palpitations, high blood pressure *What to do: At this time blood work is overall reassuring. Please increase your fluids as tolerated recommend Gatorade or Gatorade like product. Please continue to monitor blood pressure at home and have your primary care provider check your blood pressure. Your medications may need to be adjusted. We will call you in about 2-3 days if you should need antibiotics for a bladder infection *Continue to take medications as directed *Follow up with your primary care provider in 2-3 days or call [phone] *Return to ER if you should have increasing shortness of breath palpitations worsening diarrhea vomiting abdominal pain or any new, worsening or concerning symptoms Prescriptions: No Action aspirin [Adult Low Dose Aspirin] 81 mg tablet,delayed release (DR/EC) 81 mg PO DAILY multivitamin [Multiple Vitamins] 1 EACH tablet 1 tab PO QDAY Qty: 0 Disabled Parking Permit Qty: 1 0RF nitrofurantoin macrocrystal 50 mg capsule See Rx Instructions .ROUTE .COMPLEX Qty: 30 11RF Dose Instruction: take 1 capsule by mouth once daily. Please schedule an appointment for further refills. Rx Instructions: take 1 capsule by mouth once daily. Please schedule an appointment for further refills. hydrochlorothiazide 25 mg tablet 25 mg PO QDAY Qty: 30 1RF doxepin 75 mg capsule 75 mg PO BEDTIME Qty: 30 1RF simvastatin 40 mg tablet 40 mg PO DAILY Qty: 30 0RF Rx Instructions: take 1 tablet by mouth once daily (DME) Life Protect Device Qty: 1 Rx Instructions: As directed tamsulosin 0.4 mg capsule 0.4 mg PO DAILY ketoconazole 2 % cream 1 applic TOP DAILY PRN (Reason: herber dermatitis) Qty: 60 3RF Rx Instructions: Apply once daily to affected area as needed metoprolol succinate 50 mg tablet extended release 24 hr 50 mg PO DAILY losartan 50 mg tablet 50 mg PO DAILY Label Comments: take 1 tablet by mouth daily hydralazine 25 mg tablet 25 mg PO BID Label Comments: take 1 tablet by mouth twice a day metoprolol succinate 50 mg tablet extended release 24 hr 50 mg PO BID Qty: 60 0RF Eliquis 5 mg tablet 5 mg PO BID Qty: 60 0RF Referrals: Rashid Rushing MD [Primary Care Provider] - Stand Alone Forms: Patient Portal/API
[2022-07-16] MEDS: SODIUM CHLORIDE 0.9% 1,000 ML 1000 ML IV (14:23)
[2022-07-16 14:59] LABS: Troponin I < 0.012 ng/mL (0.01-0.034)
== END 2022-07-16 16:05 | disposition home or self-care (01) ==
PROVIDERS: Emergency Provider Emergency Medicine; PCP Family Medicine
DX: R00.2 Palpitations (principal); I10 Essential (primary) hypertension; R19.7 Diarrhea, unspecified; I48.20 Chronic atrial fibrillation, unspecified; Z79.01 Long term (current) use of anticoagulants; Z79.899 Other long term (current) drug therapy; Z20.822 Contact with and (suspected) exposure to COVID-19
CPT/HCPCS: 0241U; 36415; 71045; 71275; 80053; 81001; 82550; 83605; 83690; 83735; 83880; 84484; 85025; 85610; 85730; 87086; 87147; 93005; 93010; 96360; 96361; 99284; Q9967

== ENCOUNTER → 2022-08-29 12:15 | Outpatient (CLI) | payer MEDICARE, SELFPAY ==
[2022-08-29 13:54] LABS: Hemoglobin 12.6 g/dL (12.0-16.0)
[2022-08-29 14:13] LABS: Blood Urea Nitrogen 21 mg/dL (7-17); Carbon Dioxide 28 mmol/L (22-32); Chloride 100 mmol/L (98-107); Estimated Glomerular Filt Rate 52 mL/min (>60); Glucose 90 mg/dL (80-110); HEMOLYSIS < 15 (0-50); Potassium 4.6 mmol/L (3.4-5.1); Sodium 139 mmol/L (137-145)
[2022-08-29 16:24] LABS: Creatinine Urine Random 98.8 mg/dL; Protein (Total) Urine Random 11 mg/dL (0-12); Protein Creatinine Ratio Urine 0.11 GRAM/24H
[2022-08-30 07:09] LABS: Parathyroid Hormone Int 39 pg/mL (15-65)
== END ==
PROVIDERS: PCP Family Medicine; Referring Provider Student in an Organized Health Care Education/Training Program; Visit Provider Student in an Organized Health Care Education/Training Program
DX: N05.9 Unspecified nephritic syndrome with unspecified morphologic changes (principal); D64.9 Anemia, unspecified; N25.81 Secondary hyperparathyroidism of renal origin; E87.1 Hypo-osmolality and hyponatremia
CPT/HCPCS: 36415; 80048; 82570; 83970; 84156; 85014; 85018

== ENCOUNTER → 2023-04-23 12:19 | Outpatient (CLI) | payer MEDICARE, SELFPAY ==
[2023-04-23 13:01] LABS: Hemoglobin 12.5 g/dL (12.0-16.0)
[2023-04-23 13:12] LABS: Creatinine Urine Random 230.9 mg/dL
[2023-04-23 13:19] LABS: Protein (Total) Urine Random < 5 mg/dL (0-12); Protein Creatinine Ratio Urine 0.02 GRAM/24H
[2023-04-23 13:20] LABS: BUN Creatinine Ratio 20.9 (6-22); Blood Urea Nitrogen 28 mg/dL (7-17); Calcium 9.7 mg/dL (8.4-10.2); Carbon Dioxide 28 mmol/L (22-32); Chloride 102 mmol/L (98-107); Estimated Glomerular Filt Rate 39 mL/min (>60); Glucose 106 mg/dL (80-110); HEMOLYSIS < 15 (0-50); Potassium 4.8 mmol/L (3.4-5.1); Sodium 140 mmol/L (137-145)
[2023-04-25 08:13] LABS: Parathyroid Hormone Int 38 pg/mL (15-65)
== END ==
PROVIDERS: PCP Family Medicine; Referring Provider Student in an Organized Health Care Education/Training Program; Visit Provider Student in an Organized Health Care Education/Training Program
DX: N05.9 Unspecified nephritic syndrome with unspecified morphologic changes (principal); D64.9 Anemia, unspecified; N25.81 Secondary hyperparathyroidism of renal origin; R80.9 Proteinuria, unspecified
CPT/HCPCS: 36415; 80048; 82570; 83970; 84156; 85014; 85018

== ENCOUNTER → 2023-06-04 13:07 | Outpatient (CLI) | payer MEDICARE, SELFPAY ==
[2023-06-04 14:19] LABS: BUN Creatinine Ratio 18.9 (6-22); Blood Urea Nitrogen 23 mg/dL (7-17); Calcium 9.6 mg/dL (8.4-10.2); Carbon Dioxide 27 mmol/L (22-32); Chloride 102 mmol/L (98-107); Estimated Glomerular Filt Rate 43 mL/min (>60); Glucose 108 mg/dL (80-110); HEMOLYSIS < 15 (0-50); Potassium 4.5 mmol/L (3.4-5.1); Sodium 140 mmol/L (137-145)
[2023-06-04 15:29] LABS: Creatinine Urine Random 79.3 mg/dL; Protein (Total) Urine Random 53 mg/dL (0-12); Protein Creatinine Ratio Urine 0.66 GRAM/24H
== END ==
PROVIDERS: PCP Family Medicine; Referring Provider Student in an Organized Health Care Education/Training Program; Visit Provider Student in an Organized Health Care Education/Training Program
DX: N05.9 Unspecified nephritic syndrome with unspecified morphologic changes (principal); R80.9 Proteinuria, unspecified
CPT/HCPCS: 36415; 80048; 82570; 84156

== ENCOUNTER → 2023-07-31 11:18 | Outpatient (CLI) | payer MEDICARE, SELFPAY ==
[2023-07-31 12:55] LABS: Hematocrit 36.8 % (36-46); Hemoglobin 12.3 g/dL (12.0-16.0)
[2023-07-31 13:49] LABS: Blood Urea Nitrogen 23 mg/dL (7-17); Calcium 9.3 mg/dL (8.4-10.2); Carbon Dioxide 28 mmol/L (22-32); Chloride 102 mmol/L (98-107); Estimated Glomerular Filt Rate 44 mL/min (>60); Glucose 98 mg/dL (80-110); HEMOLYSIS 19 (0-50); Sodium 137 mmol/L (137-145)
[2023-07-31 15:38] LABS: Creatinine Urine Random 72.3 mg/dL; Protein (Total) Urine Random 14 mg/dL (0-12); Protein Creatinine Ratio Urine 0.19 GRAM/24H
[2023-08-02 07:10] LABS: Parathyroid Hormone Int 31 pg/mL (15-65)
== END ==
PROVIDERS: PCP Family Medicine; Referring Provider Student in an Organized Health Care Education/Training Program; Visit Provider Student in an Organized Health Care Education/Training Program
DX: N05.9 Unspecified nephritic syndrome with unspecified morphologic changes (principal); D70.9 Neutropenia, unspecified; D63.1 Anemia in chronic kidney disease; N25.81 Secondary hyperparathyroidism of renal origin; R80.9 Proteinuria, unspecified
CPT/HCPCS: 36415; 80048; 82570; 83970; 84156; 85014; 85018

== ENCOUNTER → 2023-11-18 08:39 | Outpatient (CLI) | payer MEDICARE, SELFPAY ==
[2023-11-18 09:10] LABS: Add Manual Diff / Slide Review NO; Basophils Absolute Auto 100 /uL (0-100); Basophils Percent Auto 1.2 % (0-2); Eosinophils Absolute Auto 200 /uL (0-450); Eosinophils Percent Auto 4.5 % (2-4); Hematocrit 35.5 % (36-46); Hemoglobin 11.9 g/dL (12.0-16.0); Lymphocytes Absolute Auto 1900 /uL (1100-4500); Lymphocytes Percent Auto 38.2 % (25-40); Mean Corpuscular HGB Conc 33.7 % (30-36); Mean Corpuscular Hemoglobin 30.2 PG (26-34); Mean Corpuscular Volume 89.8 fL (80-100); Monocytes Absolute Auto 400 /uL (0-900); Monocytes Percent Auto 8.3 % (3-14); Neutrophils Absolute Auto 2300 /uL (1500-7000); Neutrophils Percent Auto 47.8 % (50-75); Platelet Count 232 X10^3/uL (150-400); Red Blood Cell Count 3.95 X10^6/uL (4.0-5.2); Red Cell Distribution Width 13.9 % (11.6-14.8); White Blood Cell Count 4.9 X10^3/uL (4.5-11.0)
[2023-11-18 09:23] LABS: Alanine Aminotransferase 23 IU/L (<35); Albumin 4.3 g/dL (3.5-5.0); Albumin Globulin Ratio 1.5 (1.0-2.8); Alkaline Phosphatase 85 U/L (38-126); Aspartate Aminotransferase 33 IU/L (14-36); BUN Creatinine Ratio 22.1 (6-22); Blood Urea Nitrogen 30 mg/dL (7-17); Calcium 9.4 mg/dL (8.4-10.2); Carbon Dioxide 27 mmol/L (22-32); Chloride 109 mmol/L (98-107); Cholesterol 176 mg/dL (140-199); Estimated Glomerular Filt Rate 38 mL/min (>60); Globulin 2.8 g/dL (1.7-4.1); Glucose 112 mg/dL (80-110); HDL Cholesterol 43 mg/dL (40-60); HEMOLYSIS < 15 (0-50); LDL Cholesterol Calculated 99 mg/dL (<100); Potassium 4.5 mmol/L (3.4-5.1); Sodium 143 mmol/L (137-145); Total Protein 7.1 g/dL (6.3-8.2); Triglycerides 171 mg/dL (35-150)
[2023-11-18 10:12] LABS: Creatinine Urine Random 101.2 mg/dL
[2023-11-18 10:16] LABS: Microalbumi Creatinin Ratio Ur 149.2 ug/mg CR (<30); Microalbumin Urine Random 15.1 mg/dL (0-1.6)
[2023-11-18 12:45] LABS: TSH w/ Reflex to FT4 4.45 uIU/mL (0.47-4.68)
[2023-11-19 08:45] LABS: Apolipoprotein B 93 mg/dL (<90)
== END ==
PROVIDERS: PCP Family Medicine; Referring Provider Family Medicine; Visit Provider Family Medicine
DX: I48.91 Unspecified atrial fibrillation (principal); R94.4 Abnormal results of kidney function studies; I12.9 Hypertensive chronic kidney disease with stage 1 through stage 4 chronic kidney disease, or unspecified chronic kidney disease; N18.30 Chronic kidney disease, stage 3 unspecified; L40.9 Psoriasis, unspecified
CPT/HCPCS: 36415; 80053; 80061; 82043; 82172; 82570; 84443; 85025

== ENCOUNTER → 2023-11-28 12:16 | Outpatient (CLI) | payer MEDICARE, SELFPAY ==
[2023-11-28 14:42] LABS: Hematocrit 35.4 % (36-46); Hemoglobin 11.9 g/dL (12.0-16.0)
[2023-11-28 15:02] LABS: BUN Creatinine Ratio 20.3 (6-22); Blood Urea Nitrogen 26 mg/dL (7-17); Calcium 8.8 mg/dL (8.4-10.2); Carbon Dioxide 27 mmol/L (22-32); Chloride 106 mmol/L (98-107); Estimated Glomerular Filt Rate 41 mL/min (>60); Glucose 97 mg/dL (80-110); HEMOLYSIS < 15 (0-50); Potassium 4.6 mmol/L (3.4-5.1); Sodium 140 mmol/L (137-145)
== END ==
PROVIDERS: PCP Family Medicine; Referring Provider Student in an Organized Health Care Education/Training Program; Visit Provider Student in an Organized Health Care Education/Training Program
DX: N05.9 Unspecified nephritic syndrome with unspecified morphologic changes (principal); D70.9 Neutropenia, unspecified; D63.1 Anemia in chronic kidney disease; N25.81 Secondary hyperparathyroidism of renal origin; R80.9 Proteinuria, unspecified
CPT/HCPCS: 80048; 83970; 85014; 85018

== ENCOUNTER → 2023-12-21 12:14 | Outpatient (CLI) | payer MEDICARE, MEDICAID, SELFPAY ==
--- NOTE | 2023-12-21 12:16 | DI.CT.S_ITS ---
PROCEDURE: CT ABDOMEN PELVIS W CON INDICATIONS: Possible distal colon mass TECHNIQUE: After the administration of intravenous contrast, axial sections acquired from the lung bases to the pubic symphysis. Coronal and sagittal reformats were performed. For radiation dose reduction, the following was used: automated exposure control, adjustment of mA and/or kV according to patient size. COMPARISON: None. FINDINGS: Image quality: Diagnostic Lower chest: Unremarkable lung bases. Small hiatal hernia and possible mild distal esophageal wall thickening with epiphrenic diverticulum. Coronary calcifications. Liver: No discrete solid mass Gallbladder and biliary system: Cholecystectomy clips. Nondilated biliary tree Pancreas: No ductal dilation Spleen: Nonenlarged Adrenals: No discrete nodules Kidneys: Right nonobstructing renal calculus at the lower pole. No hydronephrosis. Vessels and lymph nodes: The main portal vein is patent. No abdominal aortic aneurysm. No pathologic lymph nodes by size criteria. There are atherosclerotic calcifications Bowel and peritoneum: No evidence of small bowel obstruction or pathologic ascites. Colonic diverticulosis. Reported distal colon mass without measurable component on CT. Colonic under distended on imaging limits evaluation. The appendix is nondilated. Body wall: Wide neck ventral hernias and rectus diastasis. This contains nonobstructed transverse colon. Body wall is otherwise unremarkable Pelvis: Evidence of pelvic descent. Uterus is absent. No measurable rectal mass on CT Bones: No acute or suspicious osseous finding. There are degenerative changes. IMPRESSION: Colonic diverticulosis. Reported distal colon mass, without definite CT correlate. CT evaluation is limited due to colonic under distension. No pathologic ascites or abscess. Other findings as above. Dictated by: Angel Francisco M.D. on 12/22/2023 at 7:54 Approved by: Angel Francisco M.D. on 12/22/2023 at 7:59
== END ==
PROVIDERS: PCP Family Medicine; Referring Provider Family Medicine; Visit Provider Family Medicine
DX: K62.5 Hemorrhage of anus and rectum (principal); K63.9 Disease of intestine, unspecified; K57.90 Diverticulosis of intestine, part unspecified, without perforation or abscess without bleeding; K44.9 Diaphragmatic hernia without obstruction or gangrene; I25.10 Atherosclerotic heart disease of native coronary artery without angina pectoris; M62.08 Separation of muscle (nontraumatic), other site; K43.9 Ventral hernia without obstruction or gangrene
CPT/HCPCS: 74177; Q9967

== ENCOUNTER 2023-12-28 09:10 | Emergency (ER) | payer MEDICARE, SELFPAY ==
[2023-12-28] VITALS (7 sets, daily range): BP systolic 174–202; BP diastolic 73–93; PULSE 68–91; RESP 15; TEMP 36.6; O2SAT 95–98; BMI 37.0
--- NOTE | 2023-12-28 09:34 | ED_ITS ---
HPI - GI Bleed General Chief complaint: GI Bleed Stated complaint: GI Bleed Time Seen by Provider: 12/28/23 09:15 Source: patient Mode of arrival: Ambulatory History of Present Illness HPI Narrative: 83-year-old female with history of atrial fibrillation on Eliquis, cystocele presents by private vehicle from home for bleeding in her genital region. Patient states that over the last several weeks she has had bright red blood per rectum but can not have a colonoscopy due to remote history colon perforation during her last scope. She underwent a CT scan of the abdomen and pelvis with IV and oral contrast that was fairly unremarkable. There was a reported distal colon mass without a CT correlate. Since last night the patient was had several episodes of bleeding when she uses the restroom. She can not identify it was from the rectum or her vagina, but states that there was no blood in her urine Related Data Home Medications Medication Instructions Recorded Confirmed multivitamin (Multiple Vitamins 1 tab PO QDAY ##0 11/24/10 11/12/23 tablet) tamsulosin 0.4 mg capsule 0.4 mg PO DAILY 11/29/20 11/12/23 hydralazine 25 mg tablet 50 mg PO BID 11/12/23 11/12/23 losartan 50 mg tablet 50 mg PO DAILY 12/06/23 Previous Rx's Medication Instructions Recorded apixaban 5 mg tablet (Eliquis) 5 mg PO BID #60 tabs 04/04/22 metoprolol succinate 50 mg 50 mg PO BID #60 tabs 04/04/22 tablet,extended release 24 hr Parking Permit... #1 ea 07/23/22 ketoconazole 2 % topical cream 1 applic topical DAILY PRN herber 03/28/23 dermatitis #60 grams nitrofurantoin macrocrystal 50 mg 50 mg PO DAILY #30 caps 08/19/23 capsule simvastatin 40 mg tablet 40 mg PO DAILY #90 tabs 08/23/23 hydrochlorothiazide 25 mg tablet See Rx Instructions .Route 10/31/23 .COMPLEX #90 tabs doxepin 75 mg capsule 75 mg PO ONCE PM #90 caps 11/16/23 Allergies Allergy/AdvReac Type Severity Reaction Status Date / Time tetracycline Allergy Mild RASH Verified 12/28/23 09:24 menthol [MENTHOL] AdvReac Severe NAUSEA Verified 12/28/23 09:24 peppermint [PEPPERMINT] AdvReac Severe NAUSEA Verified 12/28/23 09:24 phenazopyridine AdvReac Severe VOMITING Verified 12/28/23 09:24 [From PYRIDIUM] Patient History Medical History Anemia Atrial fibrillation Candidiasis, cutaneous Decreased GFR Vitamin D deficiency (~2010) Hiatal hernia (Unknown) Allergy (Unknown) Depression (Unknown) Osteopenia (2005) Basal cell carcinoma (~02/2013) Vaginal atrophy (05/02/16) Diverticulosis of large intestine with hemorrhage (02/15/16) Psoriasis (11/08/10) Osteoporosis (10/25/05) Essential hypertension (05/04/04) Hyperlipidemia (05/04/04) Chronic venous insufficiency (01/20/02) Distal radius fracture, left Surgical History S/P surgery on nasal septum History of cataract removal with insertion of prosthetic lens (2015) Status post hernia repair (2015) Status post cholecystectomy History of third molar tooth extraction Status post tubal ligation (11/19/1968) Status post delivery (11/19/1968) Status post total right knee replacement Social History Smoking Status: Never smoker second hand exposure: No alcohol intake: never substance use type: does not use Smoking Status: Never smoker alcohol intake frequency: holidays/special occasions only Substance Use Type: does not use Exam Initial Vital Signs Initial Vital Signs: Vital Signs Temperature 97.8 F 12/28/23 09:13 Pulse Rate 86 12/28/23 09:13 Respiratory Rate 15 12/28/23 09:13 Blood Pressure 202/93 H 12/28/23 09:13 Pulse Oximetry 95 12/28/23 09:13 Oxygen Delivery Method Room Air 12/28/23 09:13 Const: Awake, alert, no acute distress, nontoxic appearing Cardiac: Irregularly irregular rhythm RESP: unlabored, clear bilaterally, no wheezing GI: Soft, nontender, nondistended /rectal: Qual Field Manager present, no gross blood on rectal exam, large cystocele with excoriation and small areas of bleeding Skin: Warm, Dry, intact, no rashes Neuro: AO x3, CN II-XII grossly intact, moves all extremities Course Orders Ordered: ED Orders 12/28/23 09:30 UA Complete [Urinalysis and Microscopic] Stat Urine Culture Stat 12/28/23 09:37 CBC Auto Diff [Complete Blood Count AUTO DIFF] Stat CMP [Comprehensive Metabolic Panel] Stat PT [Prothrombin Time INR] Stat Type and Screen Stat Vital Signs Vital signs: Vital Signs - 8 hr 12/28/23 09:13 12/28/23 09:23 12/28/23 09:23 Temperature 97.8 F Pulse Rate 86 91 H Respiratory Rate 15 Blood Pressure 202/93 H 202/93 H Pulse Oximetry 95 96 Oxygen Delivery Method Room Air 12/28/23 09:30 12/28/23 10:00 12/28/23 10:30 Temperature Pulse Rate 87 71 68 Respiratory Rate Blood Pressure Pulse Oximetry 97 98 98 Oxygen Delivery Method 12/28/23 11:00 12/28/23 11:16 Temperature Pulse Rate 69 Respiratory Rate Blood Pressure 174/73 H Pulse Oximetry 98 Oxygen Delivery Method MDM - GI Bleed Lab Data 12/28/23 09:37 12/28/23 09:37 Labs: Lab Results 12/28/23 12/28/23 Range/Units 09:30 09:37 WBC 7.7 (4.5-11.0) X10^3/uL RBC 3.93 L (4.0-5.2) X10^6/uL Hgb 12.0 (12.0-16.0) g/dL Hct 35.8 L (36-46) % MCV 91.0 (80-100) fL MCH 30.6 (26-34) PG MCHC 33.6 (30-36) % RDW 13.8 (11.6-14.8) % Plt Count 219 (150-400) X10^3/uL Neut % (Auto) 62.3 (50-75) % Lymph % (Auto) 24.8 L (25-40) % [place] % (Auto) 7.7 (3-14) % Eos % (Auto) 4.4 H (2-4) % Baso % (Auto) 0.8 (0-2) % Neut # (Auto) 4800 (2777-0603) /uL Lymph # (Auto) 1900 (7142-6082) /uL [place] # (Auto) 600 (0-900) /uL Eos # (Auto) 300 (0-450) /uL Baso # (Auto) 100 (0-100) /uL PT 13.2 H (9.4-12.5) SECONDS INR 1.2 (0.9-1.3) Sodium 139 (137-145) mmol/L Potassium 4.0 (3.4-5.1) mmol/L Chloride 109 H (98-107) mmol/L Carbon Dioxide 23 (22-32) mmol/L BUN 34 H (7-17) mg/dL Creatinine 1.41 H (0.52-1.04) mg/dL Estimated GFR 37 L (>60) mL/min BUN/Creatinine Ratio 24.1 H (6-22) Glucose 115 H (80-110) mg/dL Calcium 9.0 (8.4-10.2) mg/dL Total Bilirubin 0.9 (0.2-1.3) mg/dL AST 27 (14-36) IU/L ALT 18 (<35) IU/L Alkaline Phosphatase 94 (38-126) U/L Total Protein 7.3 (6.3-8.2) g/dL Albumin 4.3 (3.5-5.0) g/dL Globulin 3.0 (1.7-4.1) g/dL Albumin/Globulin Ratio 1.4 (1.0-2.8) Urine Color Yellow Urine Appearance Cloudy Urine pH 6.0 (4.5-8.0) Ur Specific [place] 1.020 (1.000-1.035) Urine Protein 1+ H (Negative) Urine Glucose (UA) Negative (Negative) g/dL Urine Ketones Negative (NEGATIVE) Urine Occult Blood 3+ H (Negative) Urine Nitrate Positive H (Negative) Urine Bilirubin Negative (NEGATIVE) Urine Urobilinogen 0.2 (0.2) E.U./dL Ur Leukocyte Esterase 3+ H (NEGATIVE) Urine RBC 10-30/hpf H (0-5/HPF) Urine WBC 30-100/hpf H (0-5/HPF) Ur Squamous Epith Cells 0-1 /hpf (0-5/HPF) Urine Bacteria Moderate (10-30) H (None) Ur Culture Indicated? Specimen cultured Vol Urine Centrifuged 10ml (spun) Blood Type A Negative Antibody Screen Negative MDM Narrative Medical decision making narrative: Well-appearing patient with bleeding in the genital region. On visual inspection there is excoriation and some bleeding noted from patient's known cystocele. Rectal exam shows no gross blood, no melena. CT from 12/20 reviewed, no obvious mass seen, no other acute findings identified. Laboratory WBC count 7.7, hemoglobin 12.0 (baseline), platelets 219, sodium 139, potassium 4.0, creatinine 1.41, normal liver enzymes, INR 1.2. Patient informed of all lab results as well as the results of her CT scan. At this time there was no evidence of GI bleed, this is much more likely secondary to excoriation from her cystocele. Patient was given a tube of barrier cream and instructed to liberally applied this barrier cream to her cystocele to prevent worsening excoriation and further bleeding. Of note, patient noted to have nitrites and large WBCs on urinalysis. She states that she otherwise has no urinary symptoms and takes daily nitrofurantoin prescribed by Dr. Rob for chronic UTIs. We will wait for culture and sensitivity results before deciding to treat. Patient and her daughter in agreement with plan at this time. Discharge Plan Departure Patient Disposition: Home Clinical Impression: Cystocele with prolapse Instructions: DI for Cystocele/Rectocele Activity Restrictions/Additional Instructions: Your laboratory work today shows a normal hemoglobin. The only bleeding that I could see on your exam was bleeding from irritation of your cystocele. Use the barrier cream liberally and reapply every time you use the restroom. Follow up with your OBGYN and your primary care doctor if you continue to experience bleeding. Prescriptions: No Action multivitamin [Multiple Vitamins] 1 EACH tablet 1 tab PO QDAY Qty: 0 ketoconazole 2 % cream 1 applic TOP DAILY PRN (Reason: herber dermatitis) Qty: 60 3RF Rx Instructions: Apply once daily to affected area as needed nitrofurantoin macrocrystal 50 mg capsule 50 mg PO DAILY Qty: 30 4RF simvastatin 40 mg tablet 40 mg PO DAILY Qty: 90 1RF Rx Instructions: take 1 tablet by mouth once daily hydrochlorothiazide 25 mg tablet See Rx Instructions .ROUTE .COMPLEX Qty: 90 1RF Dose Instruction: take 1 tablet by mouth daily for hypertension Rx Instructions: take 1 tablet by mouth daily for hypertension doxepin 75 mg capsule 75 mg PO ONCE PM Qty: 90 3RF tamsulosin 0.4 mg capsule 0.4 mg PO DAILY (DME) Parking Permit... See Rx Instructions .Route .MEDSUPPLY Qty: 1 0RF Rx Instructions: I fin this patient to be medically disabled and qualified for disabled parking as indicated, and signed, on the accompanying [employer] application for individuals. losartan 50 mg tablet 50 mg PO DAILY Patient Comments: take 1 tablet by mouth daily metoprolol succinate 50 mg tablet extended release 24 hr 50 mg PO BID Qty: 60 0RF Eliquis 5 mg tablet 5 mg PO BID Qty: 60 0RF hydralazine 25 mg tablet 50 mg PO BID Patient Comments: take 1 tablet by mouth twice a day Referrals: Rashid Rushing MD [Primary Care Provider] - Stand Alone Forms: Patient Portal/API
--- NOTE | 2023-12-28 09:35 | PC.NURSE ---
Visual exam done by Dr Vazquez. Dr Vazquez did not find any rectal blood on exam but did fine blood where the pt has a cystocele
[2023-12-28 09:40] LABS: Appearance Urine UA CLOUDY; Bilirubin Urine UA NEGATIVE (NEGATIVE); Color Urine UA YELLOW; Glucose Urine UA NEGATIVE (Negative); Ketones Urine UA NEGATIVE (NEGATIVE); Leukocyte Esterase Urine UA 3+ (NEGATIVE); Nitrite Urine UA POSITIVE (Negative); Occult Blood Urine UA 3+ (Negative); Protein Urine UA 1+ (Negative); Urobilinogen Urine UA 0.2 E.U./dL (0.2)
[2023-12-28 09:51] LABS: Add Manual Diff / Slide Review NO; Basophils Absolute Auto 100 /uL (0-100); Basophils Percent Auto 0.8 % (0-2); Eosinophils Absolute Auto 300 /uL (0-450); Eosinophils Percent Auto 4.4 % (2-4); Hematocrit 35.8 % (36-46); Lymphocytes Absolute Auto 1900 /uL (1100-4500); Lymphocytes Percent Auto 24.8 % (25-40); Mean Corpuscular HGB Conc 33.6 % (30-36); Mean Corpuscular Hemoglobin 30.6 PG (26-34); Monocytes Absolute Auto 600 /uL (0-900); Monocytes Percent Auto 7.7 % (3-14); Neutrophils Absolute Auto 4800 /uL (1500-7000); Neutrophils Percent Auto 62.3 % (50-75); Platelet Count 219 X10^3/uL (150-400); Red Blood Cell Count 3.93 X10^6/uL (4.0-5.2); Red Cell Distribution Width 13.8 % (11.6-14.8); White Blood Cell Count 7.7 X10^3/uL (4.5-11.0)
[2023-12-28 09:56] LABS: Urine Volume 10mL (spun)
[2023-12-28 09:57] LABS: Bacteria Urine Moderate (10-30); Culture Indicated Urine Specimen Cultured; RBC Urine 10-30/HPF (0-5/HPF); Squamous Epithelial Cell Urine 0-1 /HPF (0-5/HPF); WBC Urine 30-100/HPF (0-5/HPF)
[2023-12-28 10:04] LABS: INR 1.2 (0.9-1.3); Prothrombin Time 13.2 SECONDS (9.4-12.5)
[2023-12-28 10:40] LABS: Alanine Aminotransferase 18 IU/L (<35); Albumin 4.3 g/dL (3.5-5.0); Albumin Globulin Ratio 1.4 (1.0-2.8); Alkaline Phosphatase 94 U/L (38-126); Aspartate Aminotransferase 27 IU/L (14-36); BUN Creatinine Ratio 24.1 (6-22); Bilirubin Total 0.9 mg/dL (0.2-1.3); Blood Urea Nitrogen 34 mg/dL (7-17); Carbon Dioxide 23 mmol/L (22-32); Chloride 109 mmol/L (98-107); Estimated Glomerular Filt Rate 37 mL/min (>60); Glucose 115 mg/dL (80-110); HEMOLYSIS < 15 (0-50); Sodium 139 mmol/L (137-145); Total Protein 7.3 g/dL (6.3-8.2)
== END 2023-12-28 11:17 | disposition home or self-care (01) ==
PROVIDERS: Emergency Provider Emergency Medicine; PCP Family Medicine
DX: N81.10 Cystocele, unspecified (principal)
CPT/HCPCS: 36415; 80053; 81001; 85025; 85610; 86850; 86900; 86901; 87077; 87086; 87186; 99283

== ENCOUNTER → 2024-03-18 14:36 | Outpatient (CLI) | payer MEDICARE, SELFPAY ==
[2024-03-18 15:38] LABS: Hematocrit 36.6 % (36-46); Hemoglobin 12.2 g/dL (12.0-16.0)
[2024-03-18 16:48] LABS: BUN Creatinine Ratio 27.7 (6-22); Blood Urea Nitrogen 38 mg/dL (7-17); Calcium 9.3 mg/dL (8.4-10.2); Carbon Dioxide 23 mmol/L (22-32); Chloride 104 mmol/L (98-107); Estimated Glomerular Filt Rate 38 mL/min (>60); Glucose 102 mg/dL (80-110); HEMOLYSIS < 15 (0-50); Potassium 4.8 mmol/L (3.4-5.1); Sodium 138 mmol/L (137-145)
[2024-03-18 20:13] LABS: Creatinine Urine Random 90.75 mg/dL; Protein (Total) Urine Random 10 mg/dL (0-12); Protein Creatinine Ratio Urine 0.11 GRAM/24H
[2024-03-20 09:10] LABS: Parathyroid Hormone Int 40 pg/mL (15-65)
== END ==
LOC: LAB 14:37
PROVIDERS: PCP Family Medicine; Referring Provider Student in an Organized Health Care Education/Training Program; Visit Provider Student in an Organized Health Care Education/Training Program
DX: N05.9 Unspecified nephritic syndrome with unspecified morphologic changes (principal); D70.9 Neutropenia, unspecified; D63.1 Anemia in chronic kidney disease; N25.81 Secondary hyperparathyroidism of renal origin; R80.9 Proteinuria, unspecified
CPT/HCPCS: 36415; 80048; 82570; 83970; 84156; 85014; 85018

== ENCOUNTER 2024-07-20 10:13 | Emergency (ER) | payer MEDICARE, SELFPAY ==
[2024-07-20] VITALS (14 sets, daily range): BP systolic 171–208; BP diastolic 63–100; PULSE 68–100; RESP 12–27; TEMP 35.8–36.8; O2SAT 94–99
--- NOTE | 2024-07-20 10:21 | DI.RAD.S_ITS ---
PROCEDURE: XR CHEST 1V INDICATIONS: chest pain TECHNIQUE: One view of the chest was acquired. COMPARISON: [facility], CR, XR CHEST 1V, 07/16/2022, 12:08. FINDINGS: Surgical changes and devices: None. Lungs and pleura: Lungs are clear. No pleural effusions or pneumothorax. Mediastinum: Mediastinal contours appear normal. Heart size is normal. Bones and chest wall: No suspicious bony lesions. Overlying soft tissues appear unremarkable. IMPRESSION: No acute cardiopulmonary abnormality is seen. Dictated by: Johnny Velez M.D. on 07/20/2024 at 10:41 Approved by: Johnny Velez M.D. on 07/20/2024 at 10:53
--- NOTE | 2024-07-20 10:21 | EKG_ITS ---
[id number] [place] [address] Test Date: 2024-07-20 Pat Name: Niru Gamble Department: Room: Gender: Female Community Case Manager: SANTOSH : 1940 Requested By: Order Number: [id number] Reading MD: Deon Hollingsworth MD Measurements Intervals [place] Rate: 88 P: [place]: QRS: 38 QRSD: 82 T: 100 QT: 368 QTc: 445 Interpretive Statements Atrial fibrillation Nonspecific ST and T wave abnormality Electronically Signed On 07-20-2024 16:45:58 PST by Deon Hollingsworth MD
[2024-07-20 10:38] LABS: Add Manual Diff / Slide Review NO; Basophils Absolute Auto 100 /uL (0-100); Basophils Percent Auto 0.9 % (0-2); Eosinophils Absolute Auto 300 /uL (0-450); Eosinophils Percent Auto 4.6 % (2-4); Hematocrit 35.1 % (36-46); Hemoglobin 11.7 g/dL (12.0-16.0); Lymphocytes Absolute Auto 1800 /uL (1100-4500); Lymphocytes Percent Auto 28.4 % (25-40); Mean Corpuscular HGB Conc 33.5 % (30-36); Mean Corpuscular Hemoglobin 30.5 PG (26-34); Monocytes Absolute Auto 500 /uL (0-900); Monocytes Percent Auto 8.1 % (3-14); Neutrophils Absolute Auto 3600 /uL (1500-7000); Platelet Count 246 X10^3/uL (150-400); Red Blood Cell Count 3.85 X10^6/uL (4.0-5.2); Red Cell Distribution Width 13.9 % (11.6-14.8); White Blood Cell Count 6.2 X10^3/uL (4.5-11.0)
[2024-07-20 10:47] LABS: Alanine Aminotransferase 26 IU/L (<35); Albumin 4.4 g/dL (3.5-5.0); Albumin Globulin Ratio 1.4 (1.0-2.8); Alkaline Phosphatase 109 U/L (38-126); Aspartate Aminotransferase 30 IU/L (14-36); BUN Creatinine Ratio 22.8 (6-22); Bilirubin Total 0.6 mg/dL (0.2-1.3); Blood Urea Nitrogen 28 mg/dL (7-17); Calcium 9.2 mg/dL (8.4-10.2); Carbon Dioxide 25 mmol/L (22-32); Chloride 105 mmol/L (98-107); Creatine Kinase 105 U/L (30-135); Estimated Glomerular Filt Rate 43 mL/min (>60); Globulin 3.1 g/dL (1.7-4.1); Glucose 119 mg/dL (80-110); HEMOLYSIS < 15 (0-50); Lipase 176 U/L (23-300); Sodium 138 mmol/L (137-145); Total Protein 7.5 g/dL (6.3-8.2)
[2024-07-20 10:59] LABS: Troponin I < 0.012 ng/mL (0.01-0.034)
--- NOTE | 2024-07-20 11:05 | ED.CHESTPAIN ---
HPI - Chest Pain General Chief Complaint: Chest Pain Stated Complaint: irregular HR Time Seen by Provider: 07/20/24 11:05 Source: EMS Mode of arrival: EMS Limitations: no limitations History of Present Illness HPI narrative: Patient 84-year-old female history of atrial fibrillation on Eliquis, CKD hypertension psoriasis hyperlipidemia presenting today with chest pain and palpitations. She reports that it started last night. She has been taking Eliquis she has not missed a dose. She does appear to be in atrial fibrillation previous EKGs show a sinus rhythm. She has never been cardioverted before. She does have pretty frequent regular UTIs unclear if she has was now. Related Data Home Medications Medication Instructions Recorded Confirmed multivitamin (Multiple Vitamins 1 tab PO QDAY ##0 11/24/10 11/12/23 tablet) tamsulosin 0.4 mg capsule 0.4 mg PO DAILY 11/29/20 11/12/23 hydralazine 25 mg tablet 50 mg PO BID 11/12/23 11/12/23 losartan 50 mg tablet 50 mg PO DAILY 12/06/23 Previous Rx's Medication Instructions Recorded apixaban 5 mg tablet (Eliquis) 5 mg PO BID #60 tabs 04/04/22 metoprolol succinate 50 mg 50 mg PO BID #60 tabs 04/04/22 tablet,extended release 24 hr Parking Permit... #1 ea 07/23/22 ketoconazole 2 % topical cream 1 applic topical DAILY PRN herber 03/28/23 dermatitis #60 grams doxepin 75 mg capsule 75 mg PO ONCE PM #90 caps 11/16/23 sulfamethoxazole 800 1 tab PO BID #14 tabs 01/01/24 mg-trimethoprim 160 mg tablet (Bactrim DS) simvastatin 40 mg tablet 40 mg PO DAILY #90 tabs 02/24/24 hydrochlorothiazide 25 mg tablet See Rx Instructions .Route 05/02/24 .COMPLEX #90 tabs nitrofurantoin macrocrystal 50 mg 50 mg PO DAILY #30 caps 06/08/24 capsule Allergies Allergy/AdvReac Type Severity Reaction Status Date / Time tetracycline Allergy Mild RASH Verified 12/28/23 09:24 menthol [MENTHOL] AdvReac Severe NAUSEA Verified 12/28/23 09:24 peppermint [PEPPERMINT] AdvReac Severe NAUSEA Verified 12/28/23 09:24 phenazopyridine AdvReac Severe VOMITING Verified 12/28/23 09:24 [From PYRIDIUM] Patient History Medical History Anemia Atrial fibrillation Candidiasis, cutaneous Decreased GFR Vitamin D deficiency (~2010) Hiatal hernia (Unknown) Allergy (Unknown) Depression (Unknown) Osteopenia (2005) Basal cell carcinoma (~02/2013) Vaginal atrophy (05/02/16) Diverticulosis of large intestine with hemorrhage (02/15/16) Psoriasis (11/08/10) Osteoporosis (10/25/05) Essential hypertension (05/04/04) Hyperlipidemia (05/04/04) Chronic venous insufficiency (01/20/02) Distal radius fracture, left Surgical History S/P surgery on nasal septum History of cataract removal with insertion of prosthetic lens (2015) Status post hernia repair (2015) Status post cholecystectomy History of third molar tooth extraction Status post tubal ligation (11/19/1968) Status post delivery (11/19/1968) Status post total right knee replacement Social History Smoking Status: Never smoker second hand exposure: No alcohol intake: never substance use type: does not use Smoking Status: Never smoker alcohol intake frequency: holidays/special occasions only Exam Initial Vital Signs Initial Vital Signs: Vital Signs Temperature 96.4 F L 07/20/24 10:14 Pulse Rate 94 H 07/20/24 10:14 Respiratory Rate 16 07/20/24 10:14 Blood Pressure 183/98 H 07/20/24 10:14 Pulse Oximetry 98 07/20/24 10:14 Oxygen Delivery Method Room Air 07/20/24 10:14 GENERAL: Alert pleasant well-appearing 84-year-old female HEENT: Head atraumatic,EOMI, pupils reactive, face symmetric, moist mucous membranes CARDIOVASCULAR: Irregularly irregular no murmur not tachycardic RESPIRATORY: Breath sounds equal bilaterally, no wheezes rales or rhonchi. ABDOMEN: Soft, nontender. Normoactive bowel sounds all 4 quadrants. No guarding or rebound. EXTREMITIES: Normal range of motion, no clubbing or edema. Neurovascularly intact NEUROLOGICAL: Alert and oriented x4.Normal gait and speech. SKIN: Warm, dry, no laceration, no petechiae, no rashes or lesions. Course Orders Ordered: ED Orders 07/20/24 10:20 Complete Blood Count AUTO DIFF Stat Comprehensive Metabolic Panel Stat Lipase Stat Troponin & CK Cardiac Panel Stat 07/20/24 10:21 XR chest 1V Stat EKG-12 Lead Stat 07/20/24 12:25 UA Complete [Urinalysis and Microscopic] Stat Urine Culture Stat Discontinued Medications Propofol (Propofol 200 Mg/20 Ml Vial) 85 mg 1 mg/kg (85 mg) IV NOW ONE Stop: 07/20/24 11:40 Vital Signs Vital signs: Vital Signs - 8 hr 07/20/24 11:04 07/20/24 11:05 07/20/24 11:05 Temperature Pulse Rate 100 H 100 H Respiratory Rate 18 27 H Blood Pressure 198/100 H Pulse Oximetry 97 94 Oxygen Delivery Method Room Air 07/20/24 11:18 07/20/24 11:18 07/20/24 11:30 Temperature Pulse Rate 77 79 Respiratory Rate 13 19 Blood Pressure 186/85 H Pulse Oximetry 97 96 Oxygen Delivery Method 07/20/24 11:30 07/20/24 11:49 07/20/24 11:49 Temperature Pulse Rate 89 Respiratory Rate 22 Blood Pressure 185/86 H 208/86 H Pulse Oximetry 97 Oxygen Delivery Method Room Air 07/20/24 11:51 07/20/24 11:51 07/20/24 11:55 Temperature Pulse Rate 81 Respiratory Rate 17 Blood Pressure 208/84 H 185/84 H Pulse Oximetry 97 Oxygen Delivery Method 07/20/24 11:55 07/20/24 12:00 07/20/24 12:00 Temperature Pulse Rate 77 73 Respiratory Rate 12 20 Blood Pressure 172/63 H Pulse Oximetry 96 96 Oxygen Delivery Method 07/20/24 12:05 07/20/24 12:05 07/20/24 12:31 Temperature 98.2 F Pulse Rate 72 68 Respiratory Rate 20 18 Blood Pressure 179/77 H 188/75 H Pulse Oximetry 96 98 Oxygen Delivery Method Room Air MDM - Chest Pain Lab Data 07/20/24 10:20 07/20/24 10:20 Labs: Lab Results 07/20/24 07/20/24 Range/Units 10:20 12:25 WBC 6.2 (4.5-11.0) X10^3/uL RBC 3.85 L (4.0-5.2) X10^6/uL Hgb 11.7 L (12.0-16.0) g/dL Hct 35.1 L (36-46) % MCV 91.0 (80-100) fL MCH 30.5 (26-34) PG MCHC 33.5 (30-36) % RDW 13.9 (11.6-14.8) % Plt Count 246 (150-400) X10^3/uL Neut % (Auto) 58.0 (50-75) % Lymph % (Auto) 28.4 (25-40) % [place] % (Auto) 8.1 (3-14) % Eos % (Auto) 4.6 H (2-4) % Baso % (Auto) 0.9 (0-2) % Neut # (Auto) 3600 (4654-3513) /uL Lymph # (Auto) 1800 (1987-5614) /uL [place] # (Auto) 500 (0-900) /uL Eos # (Auto) 300 (0-450) /uL Baso # (Auto) 100 (0-100) /uL Sodium 138 (137-145) mmol/L Potassium 4.0 (3.4-5.1) mmol/L Chloride 105 (98-107) mmol/L Carbon Dioxide 25 (22-32) mmol/L BUN 28 H (7-17) mg/dL Creatinine 1.23 H (0.52-1.04) mg/dL Estimated GFR 43 L (>60) mL/min BUN/Creatinine Ratio 22.8 H (6-22) Glucose 119 H (80-110) mg/dL Calcium 9.2 (8.4-10.2) mg/dL Total Bilirubin 0.6 (0.2-1.3) mg/dL AST 30 (14-36) IU/L ALT 26 (<35) IU/L Alkaline Phosphatase 109 (38-126) U/L Total Creatine Kinase 105 (30-135) U/L Troponin I < 0.012 (0.01-0.034) ng/mL Total Protein 7.5 (6.3-8.2) g/dL Albumin 4.4 (3.5-5.0) g/dL Globulin 3.1 (1.7-4.1) g/dL Albumin/Globulin Ratio 1.4 (1.0-2.8) Lipase 176 (23-300) U/L Urine Color Yellow Urine Appearance Sl cloudy Urine pH 5.5 (4.5-8.0) Ur Specific [place] <=1.005 (1.000-1.035) Urine Protein Negative (Negative) Urine Glucose (UA) Negative (Negative) g/dL Urine Ketones Negative (NEGATIVE) Urine Occult Blood Negative (Negative) Urine Nitrate Negative (Negative) Urine Bilirubin Negative (NEGATIVE) Urine Urobilinogen 0.2 (0.2) E.U./dL Ur Leukocyte Esterase 2+ H (NEGATIVE) Urine RBC None seen (0-5/HPF) Urine WBC 10-30/hpf H (0-5/HPF) Ur Squamous Epith Cells None seen (0-5/HPF) Urine Bacteria None seen (None) Ur Culture Indicated? Specimen cultured Vol Urine Centrifuged 10ml (spun) Imaging Data Chest x-ray: Radiologist's Impression: PROCEDURE: XR CHEST 1V INDICATIONS: chest pain TECHNIQUE: One view of the chest was acquired. COMPARISON: [facility], , XR CHEST 1V, 07/16/2022, 12:08. FINDINGS: Surgical changes and devices: None. Lungs and pleura: Lungs are clear. No pleural effusions or pneumothorax. Mediastinum: Mediastinal contours appear normal. Heart size is normal. Bones and chest wall: No suspicious bony lesions. Overlying soft tissues appear unremarkable. IMPRESSION: No acute cardiopulmonary abnormality is seen. Dictated by: Johnny Velez M.D. on 07/20/2024 at 10:41 ECG Data Attestation: I personally reviewed and interpreted this ECG as follows: Interpretation: Atrial fibrillation rate [address] changes MDM Narrative Medical decision making narrative: [facility] CC: Heart palpitations Complicating co-morbidities: Atrial fibrillations EKGs Medical records reviewed: Previous ED visits Differential considered: Atrial flutter PVCs, PAC Exam documented above, pertinent findings include: Nontoxic well-appearing 84-year-old female irregularly irregular heart rhythm Lab Test results independently reviewed as above. Pertinent findings: WBC 6.2 hemoglobin 11.7 hematocrit 35.1 Sodium 138 potassium 4.0 chloride 105 carbon dioxide 25 creatinine 1.2 previously 1.3 Troponin negative Independently reviewed EKG as above atrial fibrillation rate controlled Imaging studies independently reviewed: Chest x-ray no acute cardiopulmonary process Treatments: None Re-evaluations: Patient was not atrial fibrillation however she seemed to cardiovert herself. She now is in a sinus rhythm with PVCs. At this time no indication for cardioversion Discussion: 84-year-old female history of atrial fibrillation on Eliquis presenting today with heart palpitations. She was in atrial fibrillation however she converted herself. With a blood work is overall reassuring. She is taken her Eliquis and metoprolol already today. Recommend follow up out patient PCP. She was [facility] a [facility] Discharge Plan Departure Patient Disposition: Home Clinical Impression: Atrial fibrillation Instructions: DI for Atrial Fibrillation Activity Restrictions/Additional Instructions: *You have been diagnosed with atrial fibrillation *What to do: At this time I am happy that you fixed yourself *Continue to take medications as directed *Follow up with your primary care provider in 2-3 days or call [phone] *Return to ER if you should have increasing heart palpitations dizziness lightheadedness or any new, worsening or concerning symptoms Prescriptions: No Action multivitamin [Multiple Vitamins] 1 EACH tablet 1 tab PO QDAY Qty: 0 ketoconazole 2 % cream 1 applic TOP DAILY PRN (Reason: herber dermatitis) Qty: 60 3RF Rx Instructions: Apply once daily to affected area as needed doxepin 75 mg capsule 75 mg PO ONCE PM Qty: 90 3RF sulfamethoxazole-trimethoprim [Bactrim DS] 800-160 mg tablet 1 tab PO BID Qty: 14 0RF simvastatin 40 mg tablet 40 mg PO DAILY Qty: 90 1RF Rx Instructions: take 1 tablet by mouth once daily hydrochlorothiazide 25 mg tablet See Rx Instructions .ROUTE .COMPLEX Qty: 90 1RF Dose Instruction: take 1 tablet by mouth daily for hypertension Rx Instructions: take 1 tablet by mouth daily for hypertension nitrofurantoin macrocrystal 50 mg capsule 50 mg PO DAILY Qty: 30 3RF tamsulosin 0.4 mg capsule 0.4 mg PO DAILY (DME) Parking Permit... See Rx Instructions .Route .MEDSUPPLY Qty: 1 0RF Rx Instructions: I fin this patient to be medically disabled and qualified for disabled parking as indicated, and signed, on the accompanying [employer] application for [employer]. losartan 50 mg tablet 50 mg PO DAILY Patient Comments: take 1 tablet by mouth daily metoprolol succinate 50 mg tablet extended release 24 hr 50 mg PO BID Qty: 60 0RF Eliquis 5 mg tablet 5 mg PO BID Qty: 60 0RF hydralazine 25 mg tablet 50 mg PO BID Patient Comments: take 1 tablet by mouth twice a day Referrals: Rashid Rushing MD [Primary Care Provider] - Stand Alone Forms: Patient Portal/API/Survey
--- NOTE | 2024-07-20 11:27 | PC.NURSE ---
Pt sitting up in gurney. Appears in NAD. continues to have a fluttering feeling to chest.
--- NOTE | 2024-07-20 11:39 | EKG_ITS ---
[address] [address] Test Date: 2024-07-20 Pat Name: Niru Gamble Department: Room: Gender: Female Tube Balancer: SANTOSH : 1940 Requested By: Order Number: [id number] Reading MD: Deon Hollingsworth MD Measurements Intervals [place] Rate: 80 P: 70 [place]: 176 QRS: 26 QRSD: 92 T: 76 QT: 384 QTc: 442 Interpretive Statements Sinus rhythm with premature supraventricular complexes Nonspecific T wave abnormality Electronically Signed On 07-21-2024 6:42:53 PST by Deon Hollingsworth MD
--- NOTE | 2024-07-20 12:00 | PC.NURSE ---
Pt is in NSR. aware.
[2024-07-20 14:22] LABS: Appearance Urine UA SL CLOUDY; Bilirubin Urine UA NEGATIVE (NEGATIVE); Color Urine UA YELLOW; Glucose Urine UA NEGATIVE (Negative); Ketones Urine UA NEGATIVE (NEGATIVE); Leukocyte Esterase Urine UA 2+ (NEGATIVE); Nitrite Urine UA NEGATIVE (Negative); Occult Blood Urine UA NEGATIVE (Negative); Protein Urine UA NEGATIVE (Negative); Specific Gravity Urine UA <=1.005 (1.000-1.035); Urine Volume 10mL (spun); Urobilinogen Urine UA 0.2 E.U./dL (0.2); pH Urine UA 5.5 (4.5-8.0)
[2024-07-20 14:24] LABS: Bacteria Urine None Seen; Culture Indicated Urine Specimen Cultured; RBC Urine None Seen (0-5/HPF); Squamous Epithelial Cell Urine None Seen (0-5/HPF); WBC Urine 10-30/HPF (0-5/HPF)
== END 2024-07-20 12:45 | disposition home or self-care (01) ==
PROVIDERS: Emergency Provider Emergency Medicine; PCP Family Medicine
DX: I48.91 Unspecified atrial fibrillation (principal); R00.2 Palpitations; R07.9 Chest pain, unspecified; Z79.01 Long term (current) use of anticoagulants
CPT/HCPCS: 36415; 71045; 80053; 81001; 82550; 83690; 84484; 85025; 87086; 93005; 99283

== ENCOUNTER → 2024-08-12 13:00 | Outpatient (CLI) | payer MEDICARE, SELFPAY ==
[2024-08-12 14:01] LABS: BUN Creatinine Ratio 23.1 (6-22); Blood Urea Nitrogen 36 mg/dL (7-17); Calcium 9.5 mg/dL (8.4-10.2); Carbon Dioxide 25 mmol/L (22-32); Chloride 105 mmol/L (98-107); Estimated Glomerular Filt Rate 32 mL/min (>60); Glucose 102 mg/dL (80-110); HEMOLYSIS < 15 (0-50); Potassium 5.1 mmol/L (3.4-5.1); Sodium 140 mmol/L (137-145)
[2024-08-12 16:26] LABS: Creatinine Urine Random 90.55 mg/dL
[2024-08-12 16:35] LABS: Protein (Total) Urine Random 341 mg/dL (0-12); Protein Creatinine Ratio Urine 3.76 GRAM/24H
[2024-08-15 11:41] LABS: Parathyroid Hormone Int 35 pg/mL (15-65)
== END ==
PROVIDERS: PCP Family Medicine; Referring Provider Student in an Organized Health Care Education/Training Program; Visit Provider Student in an Organized Health Care Education/Training Program
DX: N05.9 Unspecified nephritic syndrome with unspecified morphologic changes (principal); D70.9 Neutropenia, unspecified; D63.1 Anemia in chronic kidney disease; R80.9 Proteinuria, unspecified; N25.81 Secondary hyperparathyroidism of renal origin
CPT/HCPCS: 36415; 80048; 82570; 83970; 84156; 85014; 85018

== ENCOUNTER → 2024-09-16 12:22 | Outpatient (CLI) | payer MEDICARE, SELFPAY ==
[2024-09-16 13:10] LABS: Hematocrit 37.4 % (36-46); Hemoglobin 12.4 g/dL (12.0-16.0)
[2024-09-16 13:15] LABS: BUN Creatinine Ratio 21.6 (6-22); Blood Urea Nitrogen 43 mg/dL (7-17); Calcium 9.6 mg/dL (8.4-10.2); Carbon Dioxide 24 mmol/L (22-32); Chloride 104 mmol/L (98-107); Estimated Glomerular Filt Rate 24 mL/min (>60); Glucose 95 mg/dL (80-110); HEMOLYSIS < 15 (0-50); Potassium 4.7 mmol/L (3.4-5.1); Sodium 140 mmol/L (137-145)
[2024-09-16 15:15] LABS: Creatinine Urine Random 90.44 mg/dL; Protein (Total) Urine Random 45 mg/dL (0-12); Protein Creatinine Ratio Urine 0.49 GRAM/24H
[2024-09-17 08:40] LABS: Parathyroid Hormone Int 43 pg/mL (15-65)
== END ==
PROVIDERS: PCP Family Medicine; Referring Provider Student in an Organized Health Care Education/Training Program; Visit Provider Student in an Organized Health Care Education/Training Program
DX: N05.9 Unspecified nephritic syndrome with unspecified morphologic changes (principal); D70.9 Neutropenia, unspecified; D63.1 Anemia in chronic kidney disease; N25.81 Secondary hyperparathyroidism of renal origin; R80.9 Proteinuria, unspecified
CPT/HCPCS: 36415; 80048; 82570; 83970; 84156; 85014; 85018

== ENCOUNTER → 2024-10-27 08:59 | Outpatient (CLI) | payer MEDICARE, SELFPAY ==
[2024-10-27 10:18] LABS: Add Manual Diff / Slide Review NO; Basophils Absolute Auto 0 /uL (0-100); Eosinophils Absolute Auto 200 /uL (0-450); Eosinophils Percent Auto 4.8 % (2-4); Hematocrit 35.2 % (36-46); Hemoglobin 11.5 g/dL (12.0-16.0); Lymphocytes Absolute Auto 1700 /uL (1100-4500); Lymphocytes Percent Auto 32.9 % (25-40); Mean Corpuscular HGB Conc 32.7 % (30-36); Mean Corpuscular Hemoglobin 29.6 PG (26-34); Mean Corpuscular Volume 90.7 fL (80-100); Monocytes Absolute Auto 500 /uL (0-900); Monocytes Percent Auto 9.1 % (3-14); Neutrophils Absolute Auto 2700 /uL (1500-7000); Neutrophils Percent Auto 52.2 % (50-75); Platelet Count 213 X10^3/uL (150-400); Red Blood Cell Count 3.88 X10^6/uL (4.0-5.2); White Blood Cell Count 5.2 X10^3/uL (4.5-11.0)
[2024-10-27 10:31] LABS: Alanine Aminotransferase 22 IU/L (<35); Albumin 4.1 g/dL (3.5-5.0); Albumin Globulin Ratio 1.6 (1.0-2.8); Alkaline Phosphatase 80 U/L (38-126); Aspartate Aminotransferase 28 IU/L (14-36); BUN Creatinine Ratio 21.3 (6-22); Blood Urea Nitrogen 36 mg/dL (7-17); Calcium 9.1 mg/dL (8.4-10.2); Carbon Dioxide 26 mmol/L (22-32); Chloride 106 mmol/L (98-107); Estimated Glomerular Filt Rate 29 mL/min (>60); Globulin 2.5 g/dL (1.7-4.1); Glucose 107 mg/dL (80-110); HEMOLYSIS < 15 (0-50); Potassium 4.7 mmol/L (3.4-5.1); Sodium 139 mmol/L (137-145); Total Protein 6.6 g/dL (6.3-8.2)
[2024-10-27 11:06] LABS: Ferritin 34 ng/mL (11-264)
== END ==
PROVIDERS: PCP Family Medicine; Referring Provider Student in an Organized Health Care Education/Training Program; Visit Provider Student in an Organized Health Care Education/Training Program
DX: N05.9 Unspecified nephritic syndrome with unspecified morphologic changes (principal); I48.19 Other persistent atrial fibrillation; N18.31 Chronic kidney disease, stage 3a; D64.9 Anemia, unspecified
CPT/HCPCS: 36415; 80053; 82728; 85025

== ENCOUNTER → 2025-01-13 14:46 | Outpatient (CLI) | payer MEDICARE, SELFPAY ==
[2025-01-13 17:07] LABS: Hematocrit 34.5 % (36-46); Hemoglobin 12.0 g/dL (12.0-16.0)
[2025-01-13 18:04] LABS: Blood Urea Nitrogen 35 mg/dL (7-17); Calcium 8.9 mg/dL (8.4-10.2); Carbon Dioxide 22 mmol/L (22-32); Chloride 105 mmol/L (98-107); Estimated Glomerular Filt Rate 32 mL/min (>60); Glucose 105 mg/dL (70-99); HEMOLYSIS < 15 (0-50); Potassium 4.9 mmol/L (3.4-5.1); Sodium 138 mmol/L (137-145)
[2025-01-13 18:11] LABS: Protein (Total) Urine Random 299 mg/dL (0-12); Protein Creatinine Ratio Urine 3.03 GRAM/24H
== END ==
PROVIDERS: PCP Family Medicine; Referring Provider Student in an Organized Health Care Education/Training Program; Visit Provider Student in an Organized Health Care Education/Training Program
DX: D70.9 Neutropenia, unspecified (principal); N05.9 Unspecified nephritic syndrome with unspecified morphologic changes; R80.9 Proteinuria, unspecified; N25.81 Secondary hyperparathyroidism of renal origin; D63.1 Anemia in chronic kidney disease
CPT/HCPCS: 36415; 80048; 82570; 83970; 84156; 85014; 85018

== ENCOUNTER → 2025-02-16 13:11 | Outpatient (CLI) | payer MEDICARE, SELFPAY ==
[2025-02-16 14:16] LABS: Hematocrit 32.8 % (36-46); Hemoglobin 11.1 g/dL (12.0-16.0)
[2025-02-16 14:44] LABS: Alanine Aminotransferase 21 IU/L (<35); Albumin 4.1 g/dL (3.5-5.0); Albumin Globulin Ratio 1.6 (1.0-2.8); Alkaline Phosphatase 105 U/L (38-126); Blood Urea Nitrogen 36 mg/dL (7-17); Calcium 9.2 mg/dL (8.4-10.2); Carbon Dioxide 25 mmol/L (22-32); Chloride 105 mmol/L (98-107); Estimated Glomerular Filt Rate 29 mL/min (>60); Globulin 2.5 g/dL (1.7-4.1); Glucose 99 mg/dL (70-99); HEMOLYSIS < 15 (0-50); Potassium 4.8 mmol/L (3.4-5.1); Sodium 140 mmol/L (137-145); Total Protein 6.6 g/dL (6.3-8.2)
[2025-02-16 16:16] LABS: Protein (Total) Urine Random 186 mg/dL (0-12); Protein Creatinine Ratio Urine 2.00 GRAM/24H
[2025-02-16 16:51] LABS: Hepatitis B Surface Antigen NEGATIVE s/c (NEGATIVE)
[2025-02-16 17:17] LABS: Hep C Virus Ab w/Reflex Quant NEGATIVE s/c (NEGATIVE)
[2025-02-17 17:10] LABS: Free Kappa Lt Chains, Serum 28.3 mg/L (3.3-19.4); Free Lambda Lt Chains,Serum 23.7 mg/L (5.7-26.3)
[2025-02-18 13:36] LABS: Albumin 3.5 g/dL (2.9-4.4); Alpha-1-Globulin 0.2 g/dL (0.0-0.4); Alpha-2-Globulin 0.9 g/dL (0.4-1.0); Gamma Globulin 0.8 g/dL (0.4-1.8)
== END ==
PROVIDERS: PCP Family Medicine; Referring Provider Student in an Organized Health Care Education/Training Program; Visit Provider Student in an Organized Health Care Education/Training Program
DX: B17.10 Acute hepatitis C without hepatic coma (principal); B19.10 Unspecified viral hepatitis B without hepatic coma; D47.2 Monoclonal gammopathy; D70.9 Neutropenia, unspecified; D89.89 Other specified disorders involving the immune mechanism, not elsewhere classified; D63.1 Anemia in chronic kidney disease; M31.30 Wegener's granulomatosis without renal involvement; M32.10 Systemic lupus erythematosus, organ or system involvement unspecified; N00.9 Acute nephritic syndrome with unspecified morphologic changes; R80.9 Proteinuria, unspecified
CPT/HCPCS: 36415; 80053; 82570; 83516; 83883; 84155; 84156; 84165; 84166; 85014; 85018; 86038; 86160; 86225; 86256; 86704; 86706; 86803; 87340

== ENCOUNTER 2025-04-19 16:28 | Emergency (ER) | payer MEDICARE, SELFPAY ==
[2025-04-19] VITALS (10 sets, daily range): BP systolic 159–213; BP diastolic 72–85; PULSE 63–80; RESP 16–29; TEMP 36.6; O2SAT 92–97; BMI 34.9
--- NOTE | 2025-04-19 17:31 | DI.RAD.S_ITS ---
PROCEDURE: XR CHEST 1V INDICATIONS: Chest Pain TECHNIQUE: One view of the chest was acquired. COMPARISON: [facility], CR, XR CHEST 1V, 07/20/2024, 10:21. FINDINGS: Surgical changes and devices: None. Lungs and pleura: Lungs are clear. No pleural effusions or pneumothorax. Mediastinum: Mediastinal contours appear normal. Heart size is normal. Bones and chest wall: No suspicious bony lesions. Overlying soft tissues appear unremarkable. IMPRESSION: No acute cardiopulmonary abnormality is seen. Dictated by: Clifton Barrett M.D. on 04/19/2025 at 18:07 Approved by: Clifton Barrett M.D. on 04/19/2025 at 18:08
--- NOTE | 2025-04-19 17:31 | EKG_ITS ---
[id number] [place] [address] Test Date: 2025-04-19 Pat Name: Niru Gamble Department: Room: Gender: Female Student Support Advisor: AFUA : 1940 Requested By: Order Number: [id number] Reading MD: Deon Hollingsworth MD Measurements Intervals [place] Rate: 77 P: [place]: QRS: 31 QRSD: 90 T: 109 QT: 376 QTc: 425 Interpretive Statements Atrial fibrillation Nonspecific ST and T wave abnormality Electronically Signed On 04-20-2025 7:21:34 PDT by Deon Hollingsworth MD
[2025-04-19 18:05] LABS: Add Manual Diff / Slide Review NO; Hematocrit 36.3 % (36-46); Hemoglobin 12.1 g/dL (12.0-16.0); Lymphocytes Absolute Auto 2000 /uL (1100-4500); Mean Corpuscular HGB Conc 33.4 % (30-36); Mean Corpuscular Hemoglobin 29.6 PG (26-34); Mean Corpuscular Volume 88.6 fL (80-100); Platelet Count 247 X10^3/uL (150-400)
[2025-04-19 18:11] LABS: INR 1.2 (0.9-1.3); Prothrombin Time 13.3 SECONDS (9.4-12.5)
[2025-04-19 18:14] LABS: PTT Partial Thromboplastin Tim 34 SECONDS (25.1-36.5)
[2025-04-19 18:17] LABS: Alanine Aminotransferase 18 IU/L (<35); Albumin 4.6 g/dL (3.5-5.0); Albumin Globulin Ratio 1.4 (1.0-2.8); Alkaline Phosphatase 101 U/L (38-126); Blood Urea Nitrogen 23 mg/dL (7-17); Calcium 9.6 mg/dL (8.4-10.2); Carbon Dioxide 25 mmol/L (22-32); Chloride 105 mmol/L (98-107); Creatine Kinase 69 U/L (30-135); Estimated Glomerular Filt Rate 45 mL/min (>60); Globulin 3.3 g/dL (1.7-4.1); Glucose 110 mg/dL (70-99); HEMOLYSIS < 15 (0-50); Lipase 65 U/L (23-300); Magnesium 2.0 mg/dL (1.6-2.3); Potassium 4.1 mmol/L (3.4-5.1); Sodium 139 mmol/L (137-145); Total Protein 7.9 g/dL (6.3-8.2)
[2025-04-19 18:28] LABS: NT-proBNP (BNP-Adult 18+) 588 pg/mL (<450); Troponin I < 0.012 ng/mL (0.01-0.034)
[2025-04-19] MEDS: ONDANSETRON 4 MG/2 ML INJ IV (18:28)
--- NOTE | 2025-04-19 18:31 | ED.ARRPALP ---
HPI - Arrhythmia/Palpitations <Tanika Hensley, DO - Last Filed: 04/20/25 23:03> General Chief Complaint: Arrhythmia/Palpitations Stated Complaint: AFIB/Numbness in neck/History of AFIB Time Seen by Provider: 04/19/25 18:31 Source: patient, RN notes reviewed and old records reviewed Mode of arrival: Ambulatory Limitations: no limitations History of Present Illness HPI narrative: 84-year-old female history of atrial fibrillation on Eliquis, CKD, hypertension, psoriasis, dyslipidemia presents with concern for atrial fibrillation. Patient states she has noticed starting yesterday that she was in atrial fibrillation with a an irregular heart rate that has been fast intermittently. She states she will feel lightheaded with the encouraged little bit unsteady when she ambulates she has had some nausea but no vomiting. She denies any syncope. Denies chest pain but has had some mid your if hot sensation for the past week. States it feels sort of heavy and warm. She states she only feels short of breath ever heart rate is elevated. She notes she has had some urinary frequency and diarrhea starting Saturday which has since stopped. She denies any fevers no cold cough or congestion. Related Data Home Medications ?Medication ?Instructions ?Recorded ?Confirmed multivitamin (Multiple Vitamins 1 tab PO QDAY ##0 11/24/10 02/18/25 tablet) tamsulosin 0.4 mg capsule 0.4 mg PO DAILY 11/29/20 02/18/25 hydralazine 25 mg tablet 50 mg PO BID 11/12/23 02/18/25 losartan 50 mg tablet 50 mg PO DAILY 12/06/23 02/18/25 Previous Rx's ?Medication ?Instructions ?Recorded apixaban 5 mg tablet (Eliquis) 5 mg PO BID #60 tabs 04/04/22 metoprolol succinate 50 mg 50 mg PO BID #60 tabs 04/04/22 tablet,extended release 24 hr Parking Permit... #1 ea 07/23/22 simvastatin 40 mg tablet 40 mg PO DAILY #90 tabs 08/24/24 hydrochlorothiazide 25 mg tablet See Rx Instructions .Route 10/29/24 .COMPLEX #90 tabs doxepin 75 mg capsule 75 mg PO ONCE PM #90 caps 11/26/24 ketoconazole 2 % topical cream 1 applic topical DAILY PRN herber 11/26/24 dermatitis #60 grams cefdinir 300 mg capsule 300 mg PO BID #10 caps 02/18/25 Allergies Allergy/AdvReac Type Severity Reaction Status Date / Time tetracycline Allergy Mild RASH Verified 04/19/25 17:21 menthol (MENTHOL) AdvReac Severe NAUSEA Verified 04/19/25 17:21 peppermint (PEPPERMINT) AdvReac Severe NAUSEA Verified 04/19/25 17:21 phenazopyridine (From AdvReac Severe VOMITING Verified 04/19/25 17:21 PYRIDIUM) Review of Systems <Tanika Hensley DO - Last Filed: 04/20/25 23:03> Review of Systems ROS Unobtainable: All systems reviewed & are unremarkable except as noted in HPI and below Patient History <Tanika Hensley DO - Last Filed: 04/20/25 23:03> Medical History Anemia Atrial fibrillation Candidiasis, cutaneous Decreased GFR Vitamin D deficiency (~2010) Hiatal hernia (Unknown) Allergy (Unknown) Depression (Unknown) Osteopenia (2005) Basal cell carcinoma (~02/2013) Vaginal atrophy (05/02/16) Diverticulosis of large intestine with hemorrhage (02/15/16) Psoriasis (11/08/10) Osteoporosis (10/25/05) Essential hypertension (05/04/04) Hyperlipidemia (05/04/04) Chronic venous insufficiency (01/20/02) Distal radius fracture, left Surgical History S/P surgery on nasal septum History of cataract removal with insertion of prosthetic lens (2015) Status post hernia repair (2015) Status post cholecystectomy History of third molar tooth extraction Status post tubal ligation (11/19/1968) Status post delivery (11/19/1968) Status post total right knee replacement Social History Smoking Status: Never smoker second hand exposure: No alcohol intake: never substance use type: does not use Smoking Status: Never smoker alcohol intake frequency: holidays/special occasions only Exam <DO James Tipton Last Filed: 04/20/25 23:03> Initial Vital Signs Initial Vital Signs: Vital Signs Temperature 97.9 F 04/19/25 17:21 Pulse Rate 75 04/19/25 17:21 Respiratory Rate 18 04/19/25 17:21 Blood Pressure 185/82 H 04/19/25 17:21 Pulse Oximetry 96 04/19/25 17:21 Oxygen Delivery Method Room Air 04/19/25 17:21 <Julio César Rose MD - Last Filed: 04/20/25 05:30> Initial Vital Signs Initial Vital Signs: Vital Signs Temperature 97.9 F 04/19/25 17:21 Pulse Rate 75 04/19/25 17:21 Respiratory Rate 18 04/19/25 17:21 Blood Pressure 185/82 H 04/19/25 17:21 Pulse Oximetry 96 04/19/25 17:21 Oxygen Delivery Method Room Air 04/19/25 17:21 Course <Tanika Hensley DO - Last Filed: 04/20/25 23:03> Orders Ordered: Discontinued Medications Aspirin (Aspirin 81 Mg Chew Tab) 324 mg PO NOW ONE Stop: 04/19/25 17:32 Last Admin: 04/19/25 19:16 Dose: Not Given Documented By: JENNIFER Sodium Chloride (Normal Saline 0.9%) 1,000 mls @ 1,000 mls/hr IV BOLUS ONE Stop: 04/19/25 19:56 Last Infusion: 04/19/25 20:23 Dose: Infused Documented By: Admin: 04/19/25 19:16 Dose: 1,000 mls/hr Documented By: JENNIFER Ondansetron HCl (Ondansetron 4 Mg/2 Ml Inj) 4 mg IV NOW ONE Stop: 04/19/25 18:19 Last Admin: 04/19/25 18:28 Dose: 4 mg Documented By: Vital Signs Vital signs: Vital Signs - 8 hr 04/19/25 21:45 04/19/25 23:30 04/19/25 23:31 Pulse Rate 66 67 63 Respiratory Rate 21 16 Blood Pressure 171/73 H Pulse Oximetry 95 93 95 Oxygen Delivery Method Room Air Room Air Room Air 04/19/25 23:31 04/19/25 23:45 04/19/25 23:45 Pulse Rate 63 Respiratory Rate 17 Blood Pressure 182/72 H 213/84 H Pulse Oximetry 92 Oxygen Delivery Method 04/19/25 23:55 04/19/25 23:55 04/20/25 00:00 Pulse Rate 68 Respiratory Rate 19 Blood Pressure 182/76 H 181/72 H Pulse Oximetry 93 Oxygen Delivery Method Room Air 04/20/25 00:00 04/20/25 00:15 04/20/25 00:15 Pulse Rate 67 65 Respiratory Rate 18 18 Blood Pressure 165/73 H Pulse Oximetry 93 93 Oxygen Delivery Method Room Air 04/20/25 00:30 04/20/25 00:30 04/20/25 01:00 Pulse Rate 66 62 Respiratory Rate 17 16 Blood Pressure 164/71 H Pulse Oximetry 94 93 Oxygen Delivery Method 04/20/25 01:01 04/20/25 01:01 Pulse Rate 59 L Respiratory Rate 18 Blood Pressure 163/69 H Pulse Oximetry 95 Oxygen Delivery Method Room Air <Julio César Rose MD - Last Filed: 04/20/25 05:30> Orders Ordered: Discontinued Medications Aspirin (Aspirin 81 Mg Chew Tab) 324 mg PO NOW ONE Stop: 04/19/25 17:32 Last Admin: 04/19/25 19:16 Dose: Not Given Documented By: JENNIFER Sodium Chloride (Normal Saline 0.9%) 1,000 mls @ 1,000 mls/hr IV BOLUS ONE Stop: 04/19/25 19:56 Last Infusion: 04/19/25 20:23 Dose: Infused Documented By: Admin: 04/19/25 19:16 Dose: 1,000 mls/hr Documented By: JENNIFER Ondansetron HCl (Ondansetron 4 Mg/2 Ml Inj) 4 mg IV NOW ONE Stop: 04/19/25 18:19 Last Admin: 04/19/25 18:28 Dose: 4 mg Documented By: Vital Signs Vital signs: Vital Signs - 8 hr 04/19/25 21:45 04/19/25 23:30 04/19/25 23:31 Pulse Rate 66 67 63 Respiratory Rate 21 16 Blood Pressure 171/73 H Pulse Oximetry 95 93 95 Oxygen Delivery Method Room Air Room Air Room Air 04/19/25 23:31 04/19/25 23:45 04/19/25 23:45 Pulse Rate 63 Respiratory Rate 17 Blood Pressure 182/72 H 213/84 H Pulse Oximetry 92 Oxygen Delivery Method 04/19/25 23:55 04/19/25 23:55 04/20/25 00:00 Pulse Rate 68 Respiratory Rate 19 Blood Pressure 182/76 H 181/72 H Pulse Oximetry 93 Oxygen Delivery Method Room Air 04/20/25 00:00 04/20/25 00:15 04/20/25 00:15 Pulse Rate 67 65 Respiratory Rate 18 18 Blood Pressure 165/73 H Pulse Oximetry 93 93 Oxygen Delivery Method Room Air 04/20/25 00:30 04/20/25 00:30 04/20/25 01:00 Pulse Rate 66 62 Respiratory Rate 17 16 Blood Pressure 164/71 H Pulse Oximetry 94 93 Oxygen Delivery Method 04/20/25 01:01 04/20/25 01:01 Pulse Rate 59 L Respiratory Rate 18 Blood Pressure 163/69 H Pulse Oximetry 95 Oxygen Delivery Method Room Air MDM - Arrhythmia/Palpitations <Tanika Hensley DO - Last Filed: 04/20/25 23:03> Lab Data 04/19/25 17:55 04/19/25 17:55 Labs: Lab Results 04/19/25 04/19/25 04/19/25 Range/Units 00:25 17:55 20:28 WBC 5.9 (4.5-11.0) X10^3/uL RBC 4.09 (4.0-5.2) X10^6/uL Hgb 12.1 (12.0-16.0) g/dL Hct 36.3 (36-46) % MCV 88.6 (80-100) fL MCH 29.6 (26-34) PG MCHC 33.4 (30-36) % RDW 13.7 (11.6-14.8) % Plt Count 247 (150-400) X10^3/uL Neut % (Auto) 53.9 (50-75) % Lymph % (Auto) 34.4 (25-40) % [place] % (Auto) 7.9 (3-14) % Eos % (Auto) 3.0 (2-4) % Baso % (Auto) 0.8 (0-2) % Neut # (Auto) 3200 (2658-4122) /uL Lymph # (Auto) 2000 (3150-0159) /uL [place] # (Auto) 500 (0-900) /uL Eos # (Auto) 200 (0-450) /uL Baso # (Auto) 0 (0-100) /uL PT 13.3 H (9.4-12.5) SECONDS INR 1.2 (0.9-1.3) APTT 34 (25.1-36.5) SECONDS Sodium 139 (137-145) mmol/L Potassium 4.1 (3.4-5.1) mmol/L Chloride 105 (98-107) mmol/L Carbon Dioxide 25 (22-32) mmol/L BUN 23 H (7-17) mg/dL Creatinine 1.19 H (0.52-1.04) mg/dL Estimated GFR 45 L (>60) mL/min BUN/Creatinine Ratio 19.3 (6-22) Glucose 110 H (70-99) mg/dL Calcium 9.6 (8.4-10.2) mg/dL Magnesium 2.0 (1.6-2.3) mg/dL Total Bilirubin 0.9 (0.2-1.3) mg/dL AST 27 (14-36) IU/L ALT 18 (<35) IU/L Alkaline Phosphatase 101 (38-126) U/L Total Creatine Kinase 69 (30-135) U/L Troponin I Cancelled < 0.012 0.041 H NT-Pro-B Natriuret Pep 588 H (<450) pg/mL Total Protein 7.9 (6.3-8.2) g/dL Albumin 4.6 (3.5-5.0) g/dL Globulin 3.3 (1.7-4.1) g/dL Albumin/Globulin Ratio 1.4 (1.0-2.8) Lipase 65 (23-300) U/L 04/20/ Range/Units 00:25 WBC (4.5-11.0) X10^3/uL RBC (4.0-5.2) X10^6/uL Hgb (12.0-16.0) g/dL Hct (36-46) % MCV (80-100) fL MCH (26-34) PG MCHC (30-36) % RDW (11.6-14.8) % Plt Count (150-400) X10^3/uL Neut % (Auto) (50-75) % Lymph % (Auto) (25-40) % [place] % (Auto) (3-14) % Eos % (Auto) (2-4) % Baso % (Auto) (0-2) % Neut # (Auto) (8422-2091) /uL Lymph # (Auto) (8654-6016) /uL [place] # (Auto) (0-900) /uL Eos # (Auto) (0-450) /uL Baso # (Auto) (0-100) /uL PT (9.4-12.5) SECONDS INR (0.9-1.3) APTT (25.1-36.5) SECONDS Sodium (137-145) mmol/L Potassium (3.4-5.1) mmol/L Chloride (98-107) mmol/L Carbon Dioxide (22-32) mmol/L BUN (7-17) mg/dL Creatinine (0.52-1.04) mg/dL Estimated GFR (>60) mL/min BUN/Creatinine Ratio (6-22) Glucose (70-99) mg/dL Calcium (8.4-10.2) mg/dL Magnesium (1.6-2.3) mg/dL Total Bilirubin (0.2-1.3) mg/dL AST (14-36) IU/L ALT (<35) IU/L Alkaline Phosphatase (38-126) U/L Total Creatine Kinase (30-135) U/L Troponin I 0.071 H NT-Pro-B Natriuret Pep (<450) pg/mL Total Protein (6.3-8.2) g/dL Albumin (3.5-5.0) g/dL Globulin (1.7-4.1) g/dL Albumin/Globulin Ratio (1.0-2.8) Lipase (23-300) U/L ECG Data Attestation: I personally reviewed and interpreted this ECG as follows: Interpretation: Atrial fibrillation rate of 77, QRS of 90 QTC of 425, nonspecific change. Patient has prior from 07/20/2024 which shows sinus rhythm. Patient does appear to has a little bit of depression lateral lead V4 and 5 today. Repeat EKG shows sinus rhythm rate of 67 MA 184 QRS 88 QTC of 437 sinus rhythm with the occasional premature complex. No acute ST elevation depression noted. ST depression appears improved on repeat EKG MDM Narrative Medical decision making narrative: EKG shows AFib, leads V4 5 and 6 was depression. Repeat EKG shows resolution of patient's ST depression. Labs CBC shows normal white count hemoglobin and platelets, INR is 1.2 creatinine is 1.19 improved from priors, BUN 23 electrolytes are otherwise appropriate glucose is 110 LFTs are normal troponins less than 0.012 with a BNP of 588. Chest x-ray shows no acute cardiopulmonary abnormality. 84-year-old female history of atrial fibrillation patient appears to be in AFib but has been rate controlled the entire time here in the department she has not been tachycardic, she notes she has had symptoms of irregular heart rate for about 24 hours but notes intermittent substernal chest discomfort for the past week. She does have little bit of new ST depression in leads V4 through V5. no elevation was appreciated. Patient is currently chest pain-free. Spoke with cardiology, Dr. Chacon at [facility]. She notes if troponin does not become positive she would recommend keeping her for stress testing. If troponin trends upwards she would recommend transfer for cardiac catheterization. She is happy to see the patient if they do require transfer and asked for a call back of the troponins become positive. Spoke with the hospitalist Dr. Weinberg, he asked for repeat troponin if trending down words would be happy to keep for chest pain observation and stress testing if it is trending upwards he would ask for transfer. Patient signed out to Dr. Rose while awaiting third troponin. <Julio César Rose MD - Last Filed: 04/20/25 05:30> Lab Data Labs: Lab Results 04/19/25 04/19/25 04/19/25 Range/Units 00:25 17:55 20:28 WBC 5.9 (4.5-11.0) X10^3/uL RBC 4.09 (4.0-5.2) X10^6/uL Hgb 12.1 (12.0-16.0) g/dL Hct 36.3 (36-46) % MCV 88.6 (80-100) fL MCH 29.6 (26-34) PG MCHC 33.4 (30-36) % RDW 13.7 (11.6-14.8) % Plt Count 247 (150-400) X10^3/uL Neut % (Auto) 53.9 (50-75) % Lymph % (Auto) 34.4 (25-40) % [place] % (Auto) 7.9 (3-14) % Eos % (Auto) 3.0 (2-4) % Baso % (Auto) 0.8 (0-2) % Neut # (Auto) 3200 (0744-4282) /uL Lymph # (Auto) 2000 (2602-1690) /uL [place] # (Auto) 500 (0-900) /uL Eos # (Auto) 200 (0-450) /uL Baso # (Auto) 0 (0-100) /uL PT 13.3 H (9.4-12.5) SECONDS INR 1.2 (0.9-1.3) APTT 34 (25.1-36.5) SECONDS Sodium 139 (137-145) mmol/L Potassium 4.1 (3.4-5.1) mmol/L Chloride 105 (98-107) mmol/L Carbon Dioxide 25 (22-32) mmol/L BUN 23 H (7-17) mg/dL Creatinine 1.19 H (0.52-1.04) mg/dL Estimated GFR 45 L (>60) mL/min BUN/Creatinine Ratio 19.3 (6-22) Glucose 110 H (70-99) mg/dL Calcium 9.6 (8.4-10.2) mg/dL Magnesium 2.0 (1.6-2.3) mg/dL Total Bilirubin 0.9 (0.2-1.3) mg/dL AST 27 (14-36) IU/L ALT 18 (<35) IU/L Alkaline Phosphatase 101 (38-126) U/L Total Creatine Kinase 69 (30-135) U/L Troponin I Cancelled < 0.012 0.041 H NT-Pro-B Natriuret Pep 588 H (<450) pg/mL Total Protein 7.9 (6.3-8.2) g/dL Albumin 4.6 (3.5-5.0) g/dL Globulin 3.3 (1.7-4.1) g/dL Albumin/Globulin Ratio 1.4 (1.0-2.8) Lipase 65 (23-300) U/L 04/20/25 Range/Units 00:25 WBC (4.5-11.0) X10^3/uL RBC (4.0-5.2) X10^6/uL Hgb (12.0-16.0) g/dL Hct (36-46) % MCV (80-100) fL MCH (26-34) PG MCHC (30-36) % RDW (11.6-14.8) % Plt Count (150-400) X10^3/uL Neut % (Auto) (50-75) % Lymph % (Auto) (25-40) % [place] % (Auto) (3-14) % Eos % (Auto) (2-4) % Baso % (Auto) (0-2) % Neut # (Auto) (0789-4111) /uL Lymph # (Auto) (3249-7699) /uL [place] # (Auto) (0-900) /uL Eos # (Auto) (0-450) /uL Baso # (Auto) (0-100) /uL PT (9.4-12.5) SECONDS INR (0.9-1.3) APTT (25.1-36.5) SECONDS Sodium (137-145) mmol/L Potassium (3.4-5.1) mmol/L Chloride (98-107) mmol/L Carbon Dioxide (22-32) mmol/L BUN (7-17) mg/dL Creatinine (0.52-1.04) mg/dL Estimated GFR (>60) mL/min BUN/Creatinine Ratio (6-22) Glucose (70-99) mg/dL Calcium (8.4-10.2) mg/dL Magnesium (1.6-2.3) mg/dL Total Bilirubin (0.2-1.3) mg/dL AST (14-36) IU/L ALT (<35) IU/L Alkaline Phosphatase (38-126) U/L Total Creatine Kinase (30-135) U/L Troponin I 0.071 H NT-Pro-B Natriuret Pep (<450) pg/mL Total Protein (6.3-8.2) g/dL Albumin (3.5-5.0) g/dL Globulin (1.7-4.1) g/dL Albumin/Globulin Ratio (1.0-2.8) Lipase (23-300) U/L MDM Narrative Medical decision making narrative: EKG shows AFib, leads V4 5 and 6 was depression. Repeat EKG shows resolution of patient's ST depression. Labs CBC shows normal white count hemoglobin and platelets, INR is 1.2 creatinine is 1.19 improved from priors, BUN 23 electrolytes are otherwise appropriate glucose is 110 LFTs are normal troponins less than 0.012 with a BNP of 588. Chest x-ray shows no acute cardiopulmonary abnormality. 84-year-old female history of atrial fibrillation patient appears to be in AFib but has been rate controlled the entire time here in the department she has not been tachycardic, she notes she has had symptoms of irregular heart rate for about 24 hours but notes intermittent substernal chest discomfort for the past week. She does have little bit of new ST depression in leads V4 through V5. no elevation was appreciated. Patient is currently chest pain-free. Spoke with cardiology, Dr. Chacon at [facility]. She notes if troponin does not become positive she would recommend keeping her for stress testing. If troponin trends upwards she would recommend transfer for cardiac catheterization. She is happy to see the patient if they do require transfer and asked for a call back of the troponins become positive. Spoke with the hospitalist Dr. Weinberg, he asked for repeat troponin if trending down words would be happy to keep for chest pain observation and stress testing if it is trending upwards he would ask for transfer. Patient signed out to Dr. Rose while awaiting third troponin. Third troponin actually layton to 0.071 and so the plan was to transfer the patient for a cardiac catheterization. Thus the patient will be transferred to [facility]. Patient became frustrated awaiting to be transferred and eventually became adamant about leaving against medical advice even after a lengthy discussion on the risk of leaving. Discharge Plan Departure Patient Disposition: Left Against Medical Advice Clinical Impression: Chest pain Qualifiers: Chest pain type: unspecified Qualified Code(s): R07.9 - Chest pain, unspecified Atrial fibrillation Qualifiers: Atrial fibrillation type: paroxysmal Qualified Code(s): I48.0 - Paroxysmal atrial fibrillation Prescriptions: No Action cefdinir 300 mg capsule 300 mg PO BID Qty: 10 0RF multivitamin [Multiple Vitamins] 1 EACH tablet 1 tab PO QDAY Qty: 0 simvastatin 40 mg tablet 40 mg PO DAILY Qty: 90 1RF Rx Instructions: take 1 tablet by mouth once daily hydrochlorothiazide 25 mg tablet See Rx Instructions .ROUTE .COMPLEX Qty: 90 1RF Dose Instruction: take 1 tablet by mouth daily for hypertension Rx Instructions: take 1 tablet by mouth daily for hypertension tamsulosin 0.4 mg capsule 0.4 mg PO DAILY (DME) Parking Permit... See Rx Instructions .Route .MEDSUPPLY Qty: 1 0RF Rx Instructions: I fin this patient to be medically disabled and qualified for disabled parking as indicated, and signed, on the accompanying [employer] application for individuals. doxepin 75 mg capsule 75 mg PO ONCE PM Qty: 90 3RF ketoconazole 2 % cream 1 applic TOP DAILY PRN (Reason: herber dermatitis) Qty: 60 3RF Rx Instructions: Apply once daily to affected area as needed losartan 50 mg tablet 50 mg PO DAILY Patient Comments: take 1 tablet by mouth daily metoprolol succinate 50 mg tablet extended release 24 hr 50 mg PO BID Qty: 60 0RF Eliquis 5 mg tablet 5 mg PO BID Qty: 60 0RF hydralazine 25 mg tablet 50 mg PO BID Patient Comments: take 1 tablet by mouth twice a day Referrals: Rashid Rushing MD [Primary Care Provider, Family Practice] Stand Alone Forms: Patient Portal/API, Against Med. Advice (Maltese)
[2025-04-19] MEDS: SODIUM CHLORIDE 0.9% 1,000 ML 1000 ML IV (19:16)
[2025-04-19 21:06] LABS: Troponin I 0.041 ng/mL (0.01-0.034)
--- NOTE | 2025-04-19 22:44 | EKG_ITS ---
[address] [address] [address] [address] Test Date: 2025-04-19 Pat Name: Niru Gamble Department: Room: Gender: Female Photographic Spotter: JANEEN : 1940 Requested By: Order Number: [id number] Reading MD: Deon Hollingsworth MD Measurements Intervals Hall Rate: 67 P: 58 UT: 184 QRS: 34 QRSD: 88 T: 48 QT: 414 QTc: 437 Interpretive Statements Sinus rhythm with premature atrial complexes Electronically Signed On 04-20-2025 7:21:49 PDT by Deon Hollingsworth MD
[2025-04-20] VITALS: BP 181/72; PULSE 67; RESP 18; O2SAT 93
[2025-04-20 00:15] VITALS: BP 165/73; PULSE 65; RESP 18; O2SAT 93
[2025-04-20 00:30] VITALS: BP 164/71; PULSE 66; RESP 17; O2SAT 94
[2025-04-20 01:00] VITALS: PULSE 62; RESP 16; O2SAT 93
[2025-04-20 01:01] VITALS: BP 163/69; PULSE 59; RESP 18; O2SAT 95
[2025-04-20 01:22] LABS: Troponin I 0.071 ng/mL (0.01-0.034)
--- NOTE | 2025-04-20 05:20 | PC.NURSE ---
IV removal by RN at this time
--- NOTE | 2025-04-20 05:31 | PC.NURSE ---
pt left AMA at 0525. signed paperwork with and RN
== END 2025-04-20 05:37 | disposition left against medical advice (07) ==
PROVIDERS: Emergency Medicine; Emergency Provider Family Medicine; PCP Family Medicine
DX: I48.0 Paroxysmal atrial fibrillation (principal); R07.9 Chest pain, unspecified; R79.89 Other specified abnormal findings of blood chemistry; Z79.01 Long term (current) use of anticoagulants; Z53.29 Procedure and treatment not carried out because of patient's decision for other reasons
CPT/HCPCS: 36415; 71045; 80053; 82550; 83690; 83735; 83880; 84484; 85025; 85610; 85730; 93005; 93010; 96361; 96374; 99284; J2405; J7030

== ENCOUNTER 2025-04-23 10:12 | Emergency (ER) | payer MEDICARE, SELFPAY ==
[2025-04-23] VITALS (15 sets, daily range): BP systolic 140–190; BP diastolic 62–87; PULSE 60–83; RESP 12–28; TEMP 36.8; O2SAT 96–97; BMI 34.9
--- NOTE | 2025-04-23 10:18 | DI.CT.S_ITS ---
PROCEDURE: CT HEAD/BRAIN WO CON INDICATIONS: eliquis headache TECHNIQUE: Noncontrast 4.5 mm thick angled axial sections acquired from the foramen magnum to the vertex, with coronal and sagittal reformats. For radiation dose reduction, the following was used: automated exposure control, adjustment of mA and/or kV according to patient size. COMPARISON: [facility], CT, CT HEAD/BRAIN WO CON, 05/26/2020, 18:55. FINDINGS: Image quality: Diagnostic. Some images are limited by beam hardening artifacts most notably at the base of the skull Ventricles and cortical sulci are mildly dilated commonly represents a pattern of atrophy, unchanged. [id number] areas of low-attenuation in the periventricular and deep white matter commonly related to chronic small vessel ischemic changes, unchanged. No CT evidence of intracranial hemorrhage, mass lesion, mass effect, acute or subacute infarct. The orbits, scalp, calvarium, paranasal sinuses, mastoid air cells, middle ear cavities within normal limits. IMPRESSION: Atrophy and chronic white matter small vessel ischemic changes unchanged. No CT evidence of intracranial hemorrhage. If symptoms persist or worsen, or there is high clinical suspicion of intracranial abnormality, MRI could be performed. Dictated by: Manuel Morton M.D. on 04/23/2025 at 10:32 Approved by: Manuel Morton M.D. on 04/23/2025 at 10:51
--- NOTE | 2025-04-23 10:20 | EKG_ITS ---
[address] [address] Test Date: 2025-04-23 Pat Name: Niru Gamble Department: [facility] Room: Gender: Female Biologist: BOLIVAR : 1940 Requested By: Order Number: [id number] Reading MD: Deon Hollingsworth MD Measurements Intervals [place] Rate: 69 P: 58 CA: 170 QRS: 36 QRSD: 86 T: 43 QT: 414 QTc: 443 Interpretive Statements Sinus rhythm with premature atrial complexes Electronically Signed On 04-23-2025 11:58:36 PDT by Deon Hollingsworth MD
--- NOTE | 2025-04-23 10:20 | DI.RAD.S_ITS ---
PROCEDURE: XR CHEST 1V INDICATIONS: chest pain TECHNIQUE: One view of the chest was acquired. COMPARISON: [facility], CR, XR CHEST 1V, 04/19/2025, 17:46. [facility], CR, XR CHEST 1V, 07/20/2024, 10:21. FINDINGS: Surgical changes and devices: None. Lungs and pleura: Lungs are clear. No pleural effusions or pneumothorax. Mediastinum: Mediastinal contours appear normal. Heart size is normal. Bones and chest wall: No suspicious bony lesions. Overlying soft tissues appear unremarkable. IMPRESSION: No acute cardiopulmonary abnormality is seen. Dictated by: Luis Low M.D. on 04/23/2025 at 10:41 Approved by: Luis Low M.D. on 04/23/2025 at 10:42
--- NOTE | 2025-04-23 10:24 | ED.NEUROSD ---
HPI - Neuro Symptoms/Deficit General Chief Complaint: Neuro Symptoms/Deficit Stated Complaint: foggy head Time Seen by Provider: 04/23/25 10:18 Source: EMS Mode of arrival: EMS History of Present Illness HPI Narrative: Patient is a an 84-year-old female, history of atrial fibrillation on Eliquis, CKD hypertension presenting today with ongoing just general weakness. She was seen evaluated here on April 19 she had a rising troponin was not yet positive but it was recommended by cardiology she go for a heart catheterization. Today she reports that her PCP nurse told her to come back to the ER. She has no chest pain no shortness a breath. She reports some ongoing brain fog does not feel quite right but she has not been falling. On Anticoagulants: No Related Data Home Medications ?Medication ?Instructions ?Recorded ?Confirmed multivitamin (Multiple Vitamins 1 tab PO QDAY ##0 11/24/10 02/18/25 tablet) tamsulosin 0.4 mg capsule 0.4 mg PO DAILY 11/29/20 02/18/25 hydralazine 25 mg tablet 50 mg PO BID 11/12/23 02/18/25 losartan 50 mg tablet 50 mg PO DAILY 12/06/23 02/18/25 Previous Rx's ?Medication ?Instructions ?Recorded apixaban 5 mg tablet (Eliquis) 5 mg PO BID #60 tabs 04/04/22 metoprolol succinate 50 mg 50 mg PO BID #60 tabs 04/04/22 tablet,extended release 24 hr Parking Permit... #1 ea 07/23/22 simvastatin 40 mg tablet 40 mg PO DAILY #90 tabs 08/24/24 hydrochlorothiazide 25 mg tablet See Rx Instructions .Route 10/29/24 .COMPLEX #90 tabs doxepin 75 mg capsule 75 mg PO ONCE PM #90 caps 11/26/24 ketoconazole 2 % topical cream 1 applic topical DAILY PRN herber 11/26/24 dermatitis #60 grams cefdinir 300 mg capsule 300 mg PO BID #10 caps 02/18/25 Allergies Allergy/AdvReac Type Severity Reaction Status Date / Time tetracycline Allergy Mild RASH Verified 04/23/25 10:20 menthol (MENTHOL) AdvReac Severe NAUSEA Verified 04/23/25 10:20 peppermint (PEPPERMINT) AdvReac Severe NAUSEA Verified 04/23/25 10:20 phenazopyridine (From AdvReac Severe VOMITING Verified 04/23/25 10:20 PYRIDIUM) Review of Systems Hematologic/Lymphatic On Anticoagulants: No Patient History Medical History Anemia Atrial fibrillation Candidiasis, cutaneous Decreased GFR Vitamin D deficiency (~2010) Hiatal hernia (Unknown) Allergy (Unknown) Depression (Unknown) Osteopenia (2005) Basal cell carcinoma (~02/2013) Vaginal atrophy (05/02/16) Diverticulosis of large intestine with hemorrhage (02/15/16) Psoriasis (11/08/10) Osteoporosis (10/25/05) Essential hypertension (05/04/04) Hyperlipidemia (05/04/04) Chronic venous insufficiency (01/20/02) Distal radius fracture, left Surgical History S/P surgery on nasal septum History of cataract removal with insertion of prosthetic lens (2015) Status post hernia repair (2015) Status post cholecystectomy History of third molar tooth extraction Status post tubal ligation (11/19/1968) Status post delivery (11/19/1968) Status post total right knee replacement Social History Smoking Status: Never smoker second hand exposure: No alcohol intake: never substance use type: does not use Smoking Status: Never smoker alcohol intake frequency: holidays/special occasions only Exam Initial Vital Signs Initial Vital Signs: Vital Signs Temperature 98.2 F 04/23/25 10:20 Pulse Rate 83 04/23/25 10:20 Respiratory Rate 17 04/23/25 10:20 Blood Pressure 140/62 04/23/25 10:20 Pulse Oximetry 96 04/23/25 10:20 Oxygen Delivery Method Room Air 04/23/25 10:20 GENERAL: Alert well-appearing 84-year-old female and in [no acute] distress. HEENT: Head atraumatic,EOMI, pupils reactive, face symmetric, [moist] mucous membranes CARDIOVASCULAR: Regular rate and rhythm without murmurs, rubs or gallops. RESPIRATORY: Breath sounds equal bilaterally, no wheezes rales or rhonchi. ABDOMEN: Soft, nontender. Normoactive bowel sounds all 4 quadrants. No guarding or rebound. EXTREMITIES: Normal range of motion, no clubbing or edema. Neurovascularly intact NEUROLOGICAL: Alert and oriented x4.Normal gait and speech. Cranial nerves II through XII grossly intact. Miner strength equal bilaterally SKIN: Warm, dry, no laceration, no petechiae, no rashes or lesions. Course Orders Ordered: ED Orders 04/23/25 10:18 CT head/brain wo con Stat 04/23/25 10:20 XR chest 1V Stat EKG-12 Lead Stat 04/23/25 10:44 Complete Blood Count AUTO DIFF Stat Comprehensive Metabolic Panel Stat Lipase Stat Magnesium Stat NT-proBNP (BNP-Adult 18+) Stat PTT Partial Thromboplastin [place] Stat Prothrombin Time INR Stat Troponin I Stat 04/23/25 12:27 UA Complete [Urinalysis and Microscopic] Stat Urine Culture Stat 04/23/25 12:50 Trop I [Troponin I] Stat Vital Signs Vital signs: Vital Signs - 8 hr 04/23/25 10:20 04/23/25 10:35 04/23/25 10:35 Temperature 98.2 F Pulse Rate 83 69 Respiratory Rate 17 Blood Pressure 140/62 144/65 H Pulse Oximetry 96 96 Oxygen Delivery Method Room Air 04/23/25 11:00 04/23/25 11:00 04/23/25 11:30 Temperature Pulse Rate 63 62 Respiratory Rate 19 Blood Pressure 157/70 H Pulse Oximetry 96 96 Oxygen Delivery Method 04/23/25 11:31 04/23/25 11:31 04/23/25 12:00 Temperature Pulse Rate 64 65 Respiratory Rate 28 H 12 Blood Pressure 163/70 H Pulse Oximetry 96 96 Oxygen Delivery Method 04/23/25 12:10 04/23/25 12:10 04/23/25 12:27 Temperature Pulse Rate 67 66 Respiratory Rate 25 H 15 Blood Pressure 190/79 H Pulse Oximetry 96 97 Oxygen Delivery Method 04/23/25 12:27 04/23/25 12:30 04/23/25 12:30 Temperature Pulse Rate 67 Respiratory Rate 24 Blood Pressure 183/87 H 174/75 H Pulse Oximetry 97 Oxygen Delivery Method MDM - Neuro Symptoms/Deficit Lab Data 04/23/25 10:44 04/23/25 10:44 Labs: Lab Results 04/23/25 04/23/25 04/23/25 Range/Units 10:44 12:27 12:50 WBC 6.2 (4.5-11.0) X10^3/uL RBC 3.96 L (4.0-5.2) X10^6/uL Hgb 11.8 L (12.0-16.0) g/dL Hct 35.3 L (36-46) % MCV 89.2 (80-100) fL MCH 29.8 (26-34) PG MCHC 33.4 (30-36) % RDW 13.7 (11.6-14.8) % Plt Count 244 (150-400) X10^3/uL Neut % (Auto) 53.6 (50-75) % Lymph % (Auto) 33.7 (25-40) % Perkins % (Auto) 7.2 (3-14) % Eos % (Auto) 4.3 H (2-4) % Baso % (Auto) 1.2 (0-2) % Neut # (Auto) 3300 (7561-2910) /uL Lymph # (Auto) 2100 (0746-0549) /uL Perkins # (Auto) 400 (0-900) /uL Eos # (Auto) 300 (0-450) /uL Baso # (Auto) 100 (0-100) /uL PT 14.6 H (9.4-12.5) SECONDS INR 1.3 (0.9-1.3) APTT 24 L (25.1-36.5) SECONDS Sodium 139 (137-145) mmol/L Potassium 4.4 (3.4-5.1) mmol/L Chloride 106 (98-107) mmol/L Carbon Dioxide 24 (22-32) mmol/L BUN 25 H (7-17) mg/dL Creatinine 1.29 H (0.52-1.04) mg/dL Estimated GFR 40 L (>60) mL/min BUN/Creatinine Ratio 19.4 (6-22) Glucose 106 H (70-99) mg/dL Calcium 9.1 (8.4-10.2) mg/dL Magnesium 2.0 (1.6-2.3) mg/dL Total Bilirubin 1.0 (0.2-1.3) mg/dL AST 38 H (14-36) IU/L ALT 21 (<35) IU/L Alkaline Phosphatase 83 (38-126) U/L Troponin I < 0.012 < 0.012 (0.01-0.034) ng/mL NT-Pro-B Natriuret Pep 473 H (<450) pg/mL Total Protein 7.9 (6.3-8.2) g/dL Albumin 4.6 (3.5-5.0) g/dL Globulin 3.3 (1.7-4.1) g/dL Albumin/Globulin Ratio 1.4 (1.0-2.8) Lipase 59 (23-300) U/L Urine Color Yellow Urine Appearance Sl cloudy Urine pH 5.5 (4.5-8.0) Ur Specific [place] <=1.005 (1.000-1.035) Urine Protein Negative (Negative) Urine Glucose (UA) Negative (Negative) g/dL Urine Ketones Negative (NEGATIVE) Urine Occult Blood Negative (Negative) Urine Nitrate Negative (Negative) Urine Bilirubin Negative (NEGATIVE) Urine Urobilinogen 0.2 (0.2) E.U./dL Ur Leukocyte Esterase 3+ H (NEGATIVE) Urine RBC None seen (0-5/HPF) Urine WBC 30-100/hpf H (0-5/HPF) Ur Squamous Epith Cells None seen (0-5/HPF) Urine Bacteria None seen (None) Ur Culture Indicated? Specimen cultured Vol Urine Centrifuged 10ml (spun) Imaging Data Chest x-ray: Radiologist's Impression: PROCEDURE: XR CHEST 1V INDICATIONS: chest pain TECHNIQUE: One view of the chest was acquired. COMPARISON: [facility], XR CHEST 1V, 04/19/2025, 17:46. [facility], XR CHEST 1V, 07/20/2024, 10:21. FINDINGS: Surgical changes and devices: None. Lungs and pleura: Lungs are clear. No pleural effusions or pneumothorax. Mediastinum: Mediastinal contours appear normal. Heart size is normal. Bones and chest wall: No suspicious bony lesions. Overlying soft tissues appear unremarkable. IMPRESSION: No acute cardiopulmonary abnormality is seen. Dictated by: Luis Low M.D. on 04/23/2025 at 10:41 CT scan - head: Radiologist's Impression: PROCEDURE: CT HEAD/BRAIN WO CON INDICATIONS: eliquis headache TECHNIQUE: Noncontrast 4.5 mm thick angled axial sections acquired from the foramen magnum to the vertex, with coronal and sagittal reformats. For radiation dose reduction, the following was used: automated exposure control, adjustment of mA and/or kV according to patient size. COMPARISON: [facility], CT, CT HEAD/BRAIN WO CON, 05/26/2020, 18:55. FINDINGS: Image quality: Diagnostic. Some images are limited by beam hardening artifacts most notably at the base of the skull Ventricles and cortical sulci are mildly dilated commonly represents a pattern of atrophy, unchanged. [id number] areas of low-attenuation in the periventricular and deep white matter commonly related to chronic small vessel ischemic changes, unchanged. No CT evidence of intracranial hemorrhage, mass lesion, mass effect, acute or subacute infarct. The orbits, scalp, calvarium, paranasal sinuses, mastoid air cells, middle ear cavities within normal limits. IMPRESSION: Atrophy and chronic white matter small vessel ischemic changes unchanged. No CT evidence of intracranial hemorrhage. If symptoms persist or worsen, or there is high clinical suspicion of intracranial abnormality, MRI could be performed. Dictated by: Manuel Morton M.D. on 04/23/2025 at 10:32 ECG Data Attestation: I personally reviewed and interpreted this ECG as follows: Prior ECG tracings: available for review Interpretation: Normal sinus rhythm rate 69 ID interval 07/08/2069 QRS [address] changes no T-wave inversions similar to prior MDM Narrative Medical decision making narrative: MDM CC: Weakness Complicating co-morbidities: Atrial fibrillation on Eliquis chronic kidney disease Data collected from: Patient Medical records reviewed: 04/19/2025 ED record reviewed, patient in ED for atrial fibrillation feeling lightheaded and some nauseated she had atrial fibrillation, but EKGs shows sinus rhythm she did have some ST-depression in V4 V5 no ST-elevation repeat EKGs showed improvement of ST changes troponin was rising went as high 0.07 which is not positive cardiology was consulted it was recommended that patient be transferred however patient left against medical advice. Differential considered: [ ] Exam documented above, pertinent findings include: Alert well-appearing 84-year-old female no neuro deficits cell cleaner strength equal having chest pain no evidence of fluid overload Lab Test results independently reviewed as above. Pertinent findings: Troponin negative x2 BNP 473 CBC no leukocytosis no anemia CMP shows stable creatinine function creatinine is 1.2 no electrolyte abnormality glucose 106 Independently reviewed EKG as above Sinus rhythm no ST depressions no elevation Imaging studies independently reviewed: CT head chronic white matter ischemic changes Chest x-ray no acute cardiopulmonary process Consultations: [ ] Treatments: None Re-evaluations: Family at bedside patient remains completely asymptomatic Discussion: Patient is a 84-year-old female history of atrial fibrillation on Eliquis feeling weak today but not having any kind of chest pain. She was seen earlier this week who is slightly up rising troponins that remained indeterminate she did have some mild ST depressions which resolved. She is asymptomatic today she has 2- troponins no ST changes. Blood work is overall reassuring. At this time recommend outpatient follow-up, PCP contacted via e-mail to set up outpatient stress test. Discharge Plan Departure Patient Disposition: Home Clinical Impression: Weakness Activity Restrictions/Additional Instructions: *You have been diagnosed with weakness *What to do: At this time blood work today is reassuring. Please follow up with Cardiology and primary care provider call Dr. Rushing office today *Continue to take medications as directed *Follow up with your primary care provider in 2-3 days or call [phone] *Return to ER if you should have increasing chest pain shortness of breath weakness or any new, worsening or concerning symptoms Prescriptions: No Action cefdinir 300 mg capsule 300 mg PO BID Qty: 10 0RF multivitamin [Multiple Vitamins] 1 EACH tablet 1 tab PO QDAY Qty: 0 simvastatin 40 mg tablet 40 mg PO DAILY Qty: 90 1RF Rx Instructions: take 1 tablet by mouth once daily hydrochlorothiazide 25 mg tablet See Rx Instructions .ROUTE .COMPLEX Qty: 90 1RF Dose Instruction: take 1 tablet by mouth daily for hypertension Rx Instructions: take 1 tablet by mouth daily for hypertension tamsulosin 0.4 mg capsule 0.4 mg PO DAILY (DME) Parking Permit... See Rx Instructions .Route .MEDSUPPLY Qty: 1 0RF Rx Instructions: I fin this patient to be medically disabled and qualified for disabled parking as indicated, and signed, on the accompanying [employer] application for individuals. doxepin 75 mg capsule 75 mg PO ONCE PM Qty: 90 3RF ketoconazole 2 % cream 1 applic TOP DAILY PRN (Reason: herber dermatitis) Qty: 60 3RF Rx Instructions: Apply once daily to affected area as needed losartan 50 mg tablet 50 mg PO DAILY Patient Comments: take 1 tablet by mouth daily metoprolol succinate 50 mg tablet extended release 24 hr 50 mg PO BID Qty: 60 0RF Eliquis 5 mg tablet 5 mg PO BID Qty: 60 0RF hydralazine 25 mg tablet 50 mg PO BID Patient Comments: take 1 tablet by mouth twice a day Referrals: Rashid Rushing MD [Primary Care Provider, Family Practice] Stand Alone Forms: Patient Portal/API
[2025-04-23 10:53] LABS: Add Manual Diff / Slide Review NO; Hematocrit 35.3 % (36-46); Hemoglobin 11.8 g/dL (12.0-16.0); Lymphocytes Absolute Auto 2100 /uL (1100-4500); Mean Corpuscular HGB Conc 33.4 % (30-36); Mean Corpuscular Hemoglobin 29.8 PG (26-34); Mean Corpuscular Volume 89.2 fL (80-100); Platelet Count 244 X10^3/uL (150-400)
[2025-04-23 11:03] LABS: INR 1.3 (0.9-1.3); Prothrombin Time 14.6 SECONDS (9.4-12.5)
[2025-04-23 11:05] LABS: PTT Partial Thromboplastin Tim 24 SECONDS (25.1-36.5)
[2025-04-23 11:07] LABS: Alanine Aminotransferase 21 IU/L (<35); Albumin 4.6 g/dL (3.5-5.0); Albumin Globulin Ratio 1.4 (1.0-2.8); Alkaline Phosphatase 83 U/L (38-126); Blood Urea Nitrogen 25 mg/dL (7-17); Calcium 9.1 mg/dL (8.4-10.2); Carbon Dioxide 24 mmol/L (22-32); Chloride 106 mmol/L (98-107); Estimated Glomerular Filt Rate 40 mL/min (>60); Globulin 3.3 g/dL (1.7-4.1); Glucose 106 mg/dL (70-99); HEMOLYSIS 27 (0-50); Lipase 59 U/L (23-300); Magnesium 2.0 mg/dL (1.6-2.3); Potassium 4.4 mmol/L (3.4-5.1); Sodium 139 mmol/L (137-145); Total Protein 7.9 g/dL (6.3-8.2)
[2025-04-23 11:19] LABS: NT-proBNP (BNP-Adult 18+) 473 pg/mL (<450); Troponin I < 0.012 ng/mL (0.01-0.034)
[2025-04-23 13:00] LABS: Appearance Urine UA SL CLOUDY; Bilirubin Urine UA NEGATIVE (NEGATIVE); Color Urine UA YELLOW; Glucose Urine UA NEGATIVE (Negative); Ketones Urine UA NEGATIVE (NEGATIVE); Leukocyte Esterase Urine UA 3+ (NEGATIVE); Nitrite Urine UA NEGATIVE (Negative); Occult Blood Urine UA NEGATIVE (Negative); Protein Urine UA NEGATIVE (Negative); Specific Gravity Urine UA <=1.005 (1.000-1.035); Urobilinogen Urine UA 0.2 E.U./dL (0.2)
[2025-04-23 13:01] LABS: pH Urine UA 5.5 (4.5-8.0)
[2025-04-23 13:03] LABS: Culture Indicated Urine Specimen Cultured
[2025-04-23 13:30] LABS: Troponin I < 0.012 ng/mL (0.01-0.034)
== END 2025-04-23 14:37 | disposition home or self-care (01) ==
PROVIDERS: Emergency Provider Emergency Medicine; PCP Family Medicine
DX: R53.1 Weakness (principal); R07.9 Chest pain, unspecified; Z79.01 Long term (current) use of anticoagulants
CPT/HCPCS: 36415; 70450; 71045; 80053; 81001; 83690; 83735; 83880; 84484; 85025; 85610; 85730; 87086; 93005; 99283; 99284

== ENCOUNTER → 2025-05-18 11:18 | Outpatient (CLI) | payer MEDICARE, SELFPAY ==
[2025-05-18 12:08] LABS: Hematocrit 33.3 % (36-46); Hemoglobin 11.2 g/dL (12.0-16.0)
[2025-05-18 12:38] LABS: Blood Urea Nitrogen 40 mg/dL (7-17); Calcium 9.2 mg/dL (8.4-10.2); Carbon Dioxide 24 mmol/L (22-32); Chloride 105 mmol/L (98-107); Estimated Glomerular Filt Rate 32 mL/min (>60); Glucose 105 mg/dL (70-99); HEMOLYSIS < 15 (0-50); Potassium 4.8 mmol/L (3.4-5.1); Sodium 139 mmol/L (137-145)
[2025-05-18 13:54] LABS: Protein (Total) Urine Random 48 mg/dL (0-12); Protein Creatinine Ratio Urine 0.87 GRAM/24H
== END ==
PROVIDERS: PCP Family Medicine; Referring Provider Student in an Organized Health Care Education/Training Program; Visit Provider Student in an Organized Health Care Education/Training Program
DX: D70.9 Neutropenia, unspecified (principal); D63.1 Anemia in chronic kidney disease; N05.9 Unspecified nephritic syndrome with unspecified morphologic changes; N25.81 Secondary hyperparathyroidism of renal origin; R80.9 Proteinuria, unspecified
CPT/HCPCS: 36415; 80048; 82570; 83970; 84156; 85014; 85018